=== PATIENT | male | born 1940 | race Hispanic/Latino ===

== ENCOUNTER 2018-08-26 12:13 | Inpatient (IN) | payer MEDICARE, BC ==
[2018-08-26 12:30] VITALS: BMI 25.3
--- NOTE | 2018-08-26 12:41 | C.PDOC ---
History Of Present Illness 78 y/o male sent to the ED by PMD, Dr. Dr. Ryne Wagoner, for evaluation of icterus onset 08/05/18. Patient reports symptoms are painless. States he has been taking PO fluids but not food. He also has been drinking orange juice. Otherwise he denies any difficulty breathing, fever, chills, URI symptoms, weakness, or other associated symptoms. Time Seen by Provider: 08/26/18 12:35 Chief Complaint (Nursing): Abnormal Labs History Per: Patient History/Exam Limitations: no limitations Onset/Duration Of Symptoms: Days Current Symptoms Are (Timing): Still Present Past Medical History Reviewed: Historical Data, Nursing Documentation, Vital Signs Vital Signs: Last Vital Signs Temp 98.5 F 08/26/18 12:31 Pulse 90 08/26/18 12:31 Resp 17 08/26/18 12:31 BP 133/76 08/26/18 12:31 Pulse Ox 96 08/26/18 12:31 - Medical History PMH: HTN (Borderline HTN, not on meds) Denies: Chronic Kidney Disease Surgical History: Tonsillectomy - [facility] Procedures CLOSED [NEEDLE] BIOPSY OF SALIVARY GLAND OR DUCT (09/18/14) Family History: States: No Known Family Hx Review Of Systems Constitutional: Negative for: Fever, Chills ENT: Negative for: Nose Congestion Cardiovascular: Negative for: Chest Pain Respiratory: Negative for: Cough, Shortness of Breath Gastrointestinal: Negative for: Nausea, Vomiting Skin: Positive for: Other (Icterus) Neurological: Negative for: Weakness, Headache Physical Exam - Physical Exam Appears: Non-toxic, No Acute Distress Skin: Warm, Other (Icterus throughout entire body) Head: Atraumatic, Normacephalic Eye(s): bilateral: PERRL, EOMI, Scleral Icterus Neck: Normal ROM, Supple Chest: Symmetrical Cardiovascular: Rhythm Regular, No Murmur Respiratory: Normal Breath Sounds, No Rales, No Rhonchi, No Wheezing Gastrointestinal/Abdominal: Soft, No Tenderness (with (-) de oliveira's sign, (-) mcburney's point tenderness), No Distention, No Guarding Extremity: Bilateral: Atraumatic, No Pedal Edema, Normal ROM Neurological/Psych: Oriented x3, Normal Speech ED Course And Treatment - Laboratory Results Result Diagrams: 08/26/18 13:02 08/26/18 13:02 Lab Interpretation: Abnormal (LFT's D-Bili 49 H, Total Bili 52 H) ECG: Interpreted By Me ECG Rhythm: Sinus Rhythm ECG Interpretation: Normal Rate From EC O2 Sat by Pulse Oximetry: 96 Pulse Ox Interpretation: Normal - Radiology CXR: Interpreted by Me CXR Interpretation: Yes: No Acute Disease - CT Scan/US US Abdomen Other Rad Studies (CT/US): Read By Radiologist, Radiology Report Reviewed CT/US Interpretation: IMPRESSION: Dilated common bile duct and intrahepatic ducts. Distended gallbladder containing sludge. No evidence of gallbladder wall thickening/pericholecystic edema. Negative sonographic De Oliveira's sign as assessed by the animal behaviorist. Correlate clinically. Echogenic liver may be seen in setting of hepatic parenchymal disease or fatty infiltration. Splenomegaly. CT Chest/Abd/Pelvis Other Rad Studies (CT/US): Read By Radiologist, Radiology Report Reviewed CT/US Interpretation: IMPRESSION: 1. No acute findings on thoracic CT without contrast. Mild hiatal hernia is identified. No significant lymphadenopathy or definitive pulmonary mass identified. 2. Gross dilatation of the biliary tree is appreciated possibly sparing the distal common bile duct. Lack of intravenous contrast limits evaluation of the solid abdominal viscera. The gallbladder appears rather distended without radiodense cholelithiasis however. No radiodense choledocholithiasis or definitive pancreatic mass appreciated. Ampullary lesion is not excluded or possible common bile duct lesion. Follow-up MRI abdomen with and without contrast is advised as well as MRCP. 3. No significant abdominal lymphadenopathy. 4. Diffuse colonic diverticulosis without definite diverticulitis. 5. Enlarged prostate gland. Reevaluation Time: 15:38 Reassessment Condition: Improved - Physician Consult Information Outcome Of Conversation: 0000, 1500: dw Dr. Ryne Wagoner, PMD< ok to admit. Dr. Lofton aware for GI consult Medical Decision Making Medical Decision Makin weeks of worstening icterus, no symptomology of CA consider sludge/blocked biliary duct. consider ERCP as inpt Initial Plan: --EKG --Labs --Chest x-ray --IV fluids --Abdominal US --CT Chest/Abd/Pelvis Disposition Doctor Will See Patient In The: Hospital Counseled Patient/Family Regarding: Studies Performed, Diagnosis - Disposition Disposition: HOSPITALIZED Disposition Time: 15:40 Condition: FAIR - Clinical Impression Clinical Impression: Icterus, Elevated bilirubin - Scribe Statement The provider has reviewed the documentation as recorded by the Scribe (Janice Waters) Provider Attestation: All medical record entries made by the Scribe were at my direction and personally dictated by me. I have reviewed the chart and agree that the record accurately reflects my personal performance of the history, physical exam, medical decision making, and the department course for this patient. I have also personally directed, reviewed, and agree with the discharge instructions and disposition.
[2018-08-26] MEDS ORDERED: Sodium Chloride 0.9% 1,000 ML IV ONE ×2 (12:53→14:39)
[2018-08-26 13:08] LABS: HEMOGLOBIN 14.5 g/dL (12.0-18.0); WHITE BLOOD COUNT 14.5 K/uL (4.8-10.8)
[2018-08-26 13:14] LABS: MEAN CELL VOLUME 84.4 fL (80.0-94.0); MEAN CORPUSCULAR HEMOGLOBIN 28.8 pg (27.0-31.0); MEAN CORPUSCULAR HGB CONC 34.1 g/dL (33.0-37.0); RBC 5.03 Mil/uL (4.40-5.90); RED CELL DISTRIBUTION WIDTH 18.8 % (11.5-14.5)
[2018-08-26 13:40] LABS: PROTHROMBIN TIME 49.7 SECONDS (9.7-12.2)
[2018-08-26 13:49] LABS: INR 4.5
--- NOTE | 2018-08-26 14:00 | RAD ---
Date of service: 08/26/2018 PROCEDURE: CHEST RADIOGRAPH, 1 VIEW HISTORY: abd pain COMPARISON: None available. FINDINGS: LUNGS: Clear. PLEURA: No pneumothorax or pleural fluid seen. CARDIOVASCULAR: No radiographic findings to suggest acute or significant cardiovascular disease. No atherosclerotic calcifications identified. OSSEOUS STRUCTURES: No significant abnormalities. VISUALIZED UPPER ABDOMEN: Normal. OTHER FINDINGS: None. IMPRESSION: No active disease. Concordant results with the preliminary interpretation rendered by the emergency department physician procedure.
[2018-08-26 14:16] LABS: LYMPH # 2.3 K/uL (1.0-4.3); MONO # 0.4 K/uL (0.0-0.8)
[2018-08-26 14:37] LABS: ALB/GLOB RATIO 0.8 (1.0-2.1); ALBUMIN 3.4 g/dL (3.5-5.0); BILIRUBIN,DIRECT 49.2 mg/dL (0.0-0.4); CALCIUM 9.2 mg/dl (8.6-10.4); TROPONIN I 0.013 ng/mL (0.00-0.120)
--- NOTE | 2018-08-26 14:53 | US ---
HISTORY: icterus, ? GB/liver COMPARISON: None available. TECHNIQUE: Sonographic evaluation of the abdomen. FINDINGS: LIVER: Measures 16.5 cm in sagittal dimension. Echogenic liver may be seen in setting of hepatic parenchymal disease or fatty infiltration. No focal hepatic mass identified. The main portal vein appears patent with normal directional flow. Intrahepatic ductal dilatation. GALLBLADDER: Gallbladder sludge. No gallstones. No gallbladder wall thickening. Negative sonographic De Oliveira's sign as assessed by the coal sample tester. COMMON BILE DUCT: Measures 1.5 cm. PANCREAS: Not well visualized. RIGHT KIDNEY: Measures 12.6 x 6.1 x 4.8 cm. No obstructing calculus or hydronephrosis identified. LEFT KIDNEY: Measures 13.3 x 6.0 x 6.0 cm. No obstructing calculus or hydronephrosis identified. SPLEEN: Measures approximately 13.5 cm. AORTA: Limited views appear unremarkable. IVC: Limited views appear unremarkable. OTHER FINDINGS: None. IMPRESSION: Dilated common bile duct and intrahepatic ducts. Distended gallbladder containing sludge. No evidence of gallbladder wall thickening/pericholecystic edema. Negative sonographic De Oliveira's sign as assessed by the coal sample tester. Correlate clinically. Echogenic liver may be seen in setting of hepatic parenchymal disease or fatty infiltration. Splenomegaly.
[2018-08-26 14:58] LABS: SQUAMOUS EPITHIAL 1 /hpf (0-5); URINE BACTERIA RARE (<OCC); URINE BILIRUBIN 2+ (NEGATIVE); URINE BLOOD 2+ (NEGATIVE); URINE CLARITY Hazy (Clear); URINE COLOR Amber (YELLOW); URINE GLUCOSE (UA) NORMAL (Normal); URINE LEUKOCYTE ESTERASE NEG Leu/uL (Negative); URINE PROTEIN NEGATIVE (NEGATIVE)
--- NOTE | 2018-08-26 15:00 | CT ---
Date of service: 08/26/2018 PROCEDURE: CT Chest, Abdomen and Pelvis without intravenous contrast HISTORY: painless icterus, suspect mass/mets COMPARISON: None available. TECHNIQUE: Helical CT of the chest, abdomen and pelvis was performed without oral or intravenous contrast as requested. Reformatted data sets also been provided. Radiation dose: Total exam DLP = 644.2 mGy-cm. This CT exam was performed using one or more of the following dose reduction techniques: Automated exposure control, adjustment of the mA and/or kV according to patient size, and/or use of iterative reconstruction technique. FINDINGS: CT CHEST WITHOUT CONTRAST: LUNGS: Central airways appear clear. No parenchymal nodule, mass or consolidation. MEDIASTINUM: The thoracic inlet appears unremarkable. Normal caliber aorta and pulmonary arterial trunk. Limited calcific atherosclerosis is appreciated at the aortic arch. Coronary artery atherosclerosis also identified. Normal size heart. LYMPH NODES: Shotty paratracheal and aortopulmonary window lymph nodes are identified. No significant lymphadenopathy nevertheless. PLEURA: Unremarkable. No pneumothorax. No pleural fluid. BONES: Extensive multifocal thoracic spondylosis. OTHER FINDINGS: Small hiatal hernia identified. There also 1.9 cm subcutaneous intermediate density nodular focus probably reflecting a sebaceous cyst at the left chest wall inferolaterally. CT ABDOMEN AND PELVIS: LIVER: There is extensive intrahepatic bile duct dilatation including a the common hepatic duct which measures 2.2 cm at its greatest dilatation and dilatation of the common bile duct up to 2.2 cm at its proximal extent. Mid CBD measures 15 mm with distal CBD likely normal caliber, but difficult to identify given lack of intravenous contrast. Otherwise homogeneous density seen throughout the liver without definable mass appreciable. GALLBLADDER AND BILE DUCTS: Gallbladder is prominently distended with intermediate density luminal contents suspicious for sludge though no calcifications identified to specifically identify calculi. CBD described above. No mural thickening or pericholecystic fluid collection grossly evident. PANCREAS: Pancreas appears atrophic but nonfocal. SPLEEN: Unremarkable. ADRENALS: Unremarkable. No mass. KIDNEYS AND URETERS: Unremarkable. No hydronephrosis. No solid mass. VASCULATURE: Minimal calcified atherosclerotic plaques identified in various abdominal aortic segments. Normal caliber abdominal aorta. No aortic aneurysm. BOWEL: Stomach is collapsed. The bowel does not appear obstructed. There is extensive diffuse colonic diverticulosis without definitive diverticulitis identified at this time. Limited scattered retained fecal material seen in various large-bowel segments. APPENDIX: Normal appendix. PERITONEUM: Unremarkable. No free fluid. No free air. LYMPH NODES: Unremarkable. No enlarged lymph nodes. BLADDER: Urinary bladder is limited in distension and is poorly evaluated as result. REPRODUCTIVE: Enlarged prostate gland. BONES: No acute fracture. OTHER FINDINGS: None. IMPRESSION: 1. No acute findings on thoracic CT without contrast. Mild hiatal hernia is identified. No significant lymphadenopathy or definitive pulmonary mass identified. 2. Gross dilatation of the biliary tree is appreciated possibly sparing the distal common bile duct. Lack of intravenous contrast limits evaluation of the solid abdominal viscera. The gallbladder appears rather distended without radiodense cholelithiasis however. No radiodense choledocholithiasis or definitive pancreatic mass appreciated. Ampullary lesion is not excluded or possible common bile duct lesion. Follow-up MRI abdomen with and without contrast is advised as well as MRCP. 3. No significant abdominal lymphadenopathy. 4. Diffuse colonic diverticulosis without definite diverticulitis. 5. Enlarged prostate gland.
[2018-08-26] MEDS: Sodium Chloride 0.9% 1,000 ML IV SCH ×2 (15:55→21:34)
--- NOTE | 2018-08-26 16:56 | CP.PCM.CON ---
<Gautam Benitez - Last Filed: 08/26/18 17:36> History of Present Illness - History of Present Illness History of Present Illness: CCU Consult note. HPI: 78M no PMH presents with a 3 week history of light colored stools and a one week history of progressive jaundice. Pt reports dark urines. He denies trying any remedies or OTC meds to try to change his stools or jaundice. Pt went to His PMD Dr Wagoner who sent him to [facility]. Patient has been tolerating a normal diet at home and drinks fluids. He reports no changes in urinary frequency. Denies any associated abdominal pain or flank pain. He does not take any medications at home. Pt rarely follows up with his PMD. 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 - RENAL Hx Chronic Kidney Disease: No - ENDOCRINE/METABOLIC Hx Endocrine Disorders: No - HEMATOLOGICAL/ONCOLOGICAL Hx Blood Disorders: No - INTEGUMENTARY Hx Dermatological Problems: Yes Hx Basil Cell: Yes (Nose) Other/Comment: Left parotid nodule - MUSCULOSKELETAL/RHEUMATOLOGICAL Hx Musculoskeletal Disorders: No - GASTROINTESTINAL Hx Gastrointestinal Disorders: Yes Hx Hemorrhoids: Yes - GENITOURINARY/GYNECOLOGICAL Hx Genitourinary Disorders: No - PSYCHIATRIC Hx Psychophysiologic Disorder: No Hx Substance Use: No - SURGICAL HISTORY Hx Tonsillectomy: Yes - ANESTHESIA Hx Anesthesia: Yes Hx Anesthesia Reactions: No Hx Malignant Hyperthermia: No Meds Allergies/Adverse Reactions: Allergies Allergy/AdvReac Type Severity Reaction Status Date / Time No Known Allergies Allergy Verified 08/26/18 12:30 - Medications Medications: Current Medications Sodium Chloride (Sodium Chloride 0.9%) 1,000 mls @ 100 mls/hr IV .Q10H ANASTASIA Last Admin: 08/26/18 15:55 Dose: 100 mls/hr Phytonadione (Vitamin K Inj) 10 mg SC Q8 ANASTASIA Stop: 08/27/18 14:01 Physical Exam - Constitutional Appears: No Acute Distress Results - Vital Signs Recent Vital Signs: Last Vital Signs Temp 98.5 F 08/26/18 12:31 Pulse 78 08/26/18 16:06 Resp 16 08/26/18 16:06 BP 146/82 08/26/18 16:06 Pulse Ox 96 08/26/18 16:17 - Labs Result Diagrams: 08/26/18 13:02 08/26/18 13:02 Labs: Laboratory Results - last 24 hr 08/26/18 08/26/18 08/26/18 13:02 13:02 13:02 WBC 14.5 H RBC 5.03 Hgb 14.5 Hct 42.5 MCV 84.4 MCH 28.8 MCHC 34.1 RDW 18.8 H Plt Count 436 H MPV 9.0 Neut % (Auto) 81.0 H Lymph % (Auto) 16.0 L [place] % (Auto) 3.0 Eos % (Auto) 0.0 Baso % (Auto) 0.0 Neut # (Auto) 12.0 H Lymph # (Auto) 2.3 [place] # (Auto) 0.4 Eos # (Auto) 0.0 Baso # (Auto) 0.0 PT 49.7 H INR 4.5 APTT 54 H Sodium 139 Potassium 3.6 Chloride 104 Carbon Dioxide 13 L Anion Gap 25 H BUN 113 H* Creatinine 5.8 H Est GFR ( Amer) 12 Est GFR (Non-Af Amer) 10 Random Glucose 131 H Lactic Acid Calcium 9.2 Total Bilirubin 52.3 H Direct Bilirubin 49.2 H AST 298 H ALT 366 H Alkaline Phosphatase 525 H Ammonia Troponin I 0.0130 NT-Pro-B Natriuret Pep 767 Total Protein 7.4 Albumin 3.4 L Globulin 4.0 H Albumin/Globulin Ratio 0.8 L Lipase 668 H Urine Color Urine Clarity Urine pH Ur Specific [place] Urine Protein Urine Glucose (UA) Urine Ketones Urine Blood Urine Nitrate Urine Bilirubin Urine Urobilinogen Ur Leukocyte Esterase Urine WBC (Auto) Urine RBC (Auto) Ur Squamous Epith Cells Urine Bacteria Ur Random Sodium 08/26/18 08/26/18 08/26/18 13:02 14:47 16:16 WBC RBC Hgb Hct MCV MCH MCHC RDW Plt Count MPV Neut % (Auto) Lymph % (Auto) [place] % (Auto) Eos % (Auto) Baso % (Auto) Neut # (Auto) Lymph # (Auto) [place] # (Auto) Eos # (Auto) Baso # (Auto) PT INR APTT Sodium Potassium Chloride Carbon Dioxide Anion Gap BUN Creatinine Est GFR ( Amer) Est GFR (Non-Af Amer) Random Glucose Lactic Acid 1.0 Calcium Total Bilirubin Direct Bilirubin AST ALT Alkaline Phosphatase Ammonia Troponin I NT-Pro-B Natriuret Pep Total Protein Albumin Globulin Albumin/Globulin Ratio Lipase Urine Color [place] Urine Clarity Hazy Urine pH 5.0 Ur Specific [place] 1.011 Urine Protein Negative Urine Glucose (UA) Normal Urine Ketones Negative Urine Blood 2+ H Urine Nitrate Negative Urine Bilirubin 2+ H Urine Urobilinogen 2.0 Ur Leukocyte Esterase Neg Urine WBC (Auto) 2 Urine RBC (Auto) 9 H Ur Squamous Epith Cells 1 Urine Bacteria Rare Ur Random Sodium 27 08/26/18 16:19 WBC RBC Hgb Hct MCV MCH MCHC RDW Plt Count MPV Neut % (Auto) Lymph % (Auto) [place] % (Auto) Eos % (Auto) Baso % (Auto) Neut # (Auto) Lymph # (Auto) [place] # (Auto) Eos # (Auto) Baso # (Auto) PT INR APTT Sodium Potassium Chloride Carbon Dioxide Anion Gap BUN Creatinine Est GFR ( Amer) Est GFR (Non-Af Amer) Random Glucose Lactic Acid Calcium Total Bilirubin Direct Bilirubin AST ALT Alkaline Phosphatase Ammonia 27 Troponin I NT-Pro-B Natriuret Pep Total Protein Albumin Globulin Albumin/Globulin Ratio Lipase Urine Color Urine Clarity Urine pH Ur Specific [place] Urine Protein Urine Glucose (UA) Urine Ketones Urine Blood Urine Nitrate Urine Bilirubin Urine Urobilinogen Ur Leukocyte Esterase Urine WBC (Auto) Urine RBC (Auto) Ur Squamous Epith Cells Urine Bacteria Ur Random Sodium Assessment & Plan - Assessment and Plan (Free Text) Assessment: Neuro: -AAOX3 -Monitor mental status CardioVasc: Hemodynamically stable Monitor Vitals Pulm: Maintian spO2 >92% Nasal Canula prn ID: no leukocytosis afebrile Endo: Maintain Euglycemia target 120-140 random gluc Renal: ALPHONSO -BUN 100 -Cr: 5.8 Monitor and repleat electrolytes monitor i&os GI Billiary obstruction -IVF - -Elevated Direct and Indirect Bilirubin -Elevated ALk Phos -Ultrasound: -MRI Abd: PPX: <SelwynfRichard M - Last Filed: 08/26/18 17:55> Meds - Medications Medications: Current Medications Sodium Chloride (Sodium Chloride 0.9%) 1,000 mls @ 100 mls/hr IV .Q10H ANASTASIA Last Admin: 08/26/18 15:55 Dose: 100 mls/hr Phytonadione (Vitamin K Inj) 10 mg SC Q8 ANASTASIA Stop: 08/27/18 14:01 Results - Vital Signs Recent Vital Signs: Last Vital Signs Temp 98.5 F 08/26/18 12:31 Pulse 78 08/26/18 16:06 Resp 16 08/26/18 16:06 BP 146/82 08/26/18 16:06 Pulse Ox 96 08/26/18 16:17 - Labs Result Diagrams: 08/26/18 13:02 08/26/18 13:02 Labs: Laboratory Results - last 24 hr 08/26/18 08/26/18 08/26/18 13:02 13:02 13:02 WBC 14.5 H RBC 5.03 Hgb 14.5 Hct 42.5 MCV 84.4 MCH 28.8 MCHC 34.1 RDW 18.8 H Plt Count 436 H MPV 9.0 Neut % (Auto) 81.0 H Lymph % (Auto) 16.0 L [place] % (Auto) 3.0 Eos % (Auto) 0.0 Baso % (Auto) 0.0 Neut # (Auto) 12.0 H Lymph # (Auto) 2.3 [place] # (Auto) 0.4 Eos # (Auto) 0.0 Baso # (Auto) 0.0 PT 49.7 H INR 4.5 APTT 54 H Sodium 139 Potassium 3.6 Chloride 104 Carbon Dioxide 13 L Anion Gap 25 H BUN 113 H* Creatinine 5.8 H Est GFR ( Amer) 12 Est GFR (Non-Af Amer) 10 Random Glucose 131 H Lactic Acid Calcium 9.2 Total Bilirubin 52.3 H Direct Bilirubin 49.2 H AST 298 H ALT 366 H Alkaline Phosphatase 525 H Ammonia Troponin I 0.0130 NT-Pro-B Natriuret Pep 767 Total Protein 7.4 Albumin 3.4 L Globulin 4.0 H Albumin/Globulin Ratio 0.8 L Lipase 668 H Carcinoembryonic Ag CA 19-9 Antigen Urine Color Urine Clarity Urine pH Ur Specific [place] Urine Protein Urine Glucose (UA) Urine Ketones Urine Blood Urine Nitrate Urine Bilirubin Urine Urobilinogen Ur Leukocyte Esterase Urine WBC (Auto) Urine RBC (Auto) Ur Squamous Epith Cells Urine Bacteria Ur Random Sodium 08/26/18 08/26/18 08/26/18 13:02 14:47 16:16 WBC RBC Hgb Hct MCV MCH MCHC RDW Plt Count MPV Neut % (Auto) Lymph % (Auto) [place] % (Auto) Eos % (Auto) Baso % (Auto) Neut # (Auto) Lymph # (Auto) [place] # (Auto) Eos # (Auto) Baso # (Auto) PT INR APTT Sodium Potassium Chloride Carbon Dioxide Anion Gap BUN Creatinine Est GFR ( Amer) Est GFR (Non-Af Amer) Random Glucose Lactic Acid 1.0 Calcium Total Bilirubin Direct Bilirubin AST ALT Alkaline Phosphatase Ammonia Troponin I NT-Pro-B Natriuret Pep Total Protein Albumin Globulin Albumin/Globulin Ratio Lipase Carcinoembryonic Ag CA 19-9 Antigen Urine Color [place] Urine Clarity Hazy Urine pH 5.0 Ur Specific [place] 1.011 Urine Protein Negative Urine Glucose (UA) Normal Urine Ketones Negative Urine Blood 2+ H Urine Nitrate Negative Urine Bilirubin 2+ H Urine Urobilinogen 2.0 Ur Leukocyte Esterase Neg Urine WBC (Auto) 2 Urine RBC (Auto) 9 H Ur Squamous Epith Cells 1 Urine Bacteria Rare Ur Random Sodium 27 08/26/18 08/26/18 16:19 16:19 WBC RBC Hgb Hct MCV MCH MCHC RDW Plt Count MPV Neut % (Auto) Lymph % (Auto) [place] % (Auto) Eos % (Auto) Baso % (Auto) Neut # (Auto) Lymph # (Auto) [place] # (Auto) Eos # (Auto) Baso # (Auto) PT INR APTT Sodium Potassium Chloride Carbon Dioxide Anion Gap BUN Creatinine Est GFR ( Amer) Est GFR (Non-Af Amer) Random Glucose Lactic Acid Calcium Total Bilirubin Direct Bilirubin AST ALT Alkaline Phosphatase Ammonia 27 Troponin I NT-Pro-B Natriuret Pep Total Protein Albumin Globulin Albumin/Globulin Ratio Lipase Carcinoembryonic Ag 1.2 CA 19-9 Antigen 243 H Urine Color Urine Clarity Urine pH Ur Specific [place] Urine Protein Urine Glucose (UA) Urine Ketones Urine Blood Urine Nitrate Urine Bilirubin Urine Urobilinogen Ur Leukocyte Esterase Urine WBC (Auto) Urine RBC (Auto) Ur Squamous Epith Cells Urine Bacteria Ur Random Sodium Attending/Attestation - Attestation I have personally seen and examined this patient.: Yes I have fully participated in the care of the patient.: Yes I have reviewed all pertinent clinical information: Yes Notes (Text): 08/26/18 17:51 Today: August The Patient was seen and examined at the bedside, Medical records reviewed, and management issues were discussed and formulated with the house staff. I have reviewed all the relevant clinical, laboratory, hemodynamic, radiographic data and medications Events reviewed Pain issues, skin care, head of the bed elevation, glycemic control were addressed. Agree with above resident's assessment and treatment plans of care as transcribed in Dr. Benitez's note.
[2018-08-26] MEDS ORDERED: Pneumococcal 23-Valent Vaccine SC ONE (19:31)
[2018-08-26] MEDS: Phytonadione 10 mg/ml Inj (Adult) SC SCH (21:41)
[2018-08-27] MEDS: Phytonadione 10 mg/ml Inj (Adult) SC SCH ×2 (05:15→14:02)
[2018-08-27] MEDS: Sodium Chloride 0.9% 1,000 ML IV SCH ×3 (05:16→12:11)
[2018-08-27 06:53] LABS: HEMOGLOBIN 12.1 g/dL (12.0-18.0); MEAN CELL VOLUME 85.2 fL (80.0-94.0); MEAN CORPUSCULAR HEMOGLOBIN 29.8 pg (27.0-31.0); MEAN PLATELET VOLUME 9.2 fL (7.2-11.7); PLATELET COUNT 350 K/uL (130-400); RBC 4.08 Mil/uL (4.40-5.90); RED CELL DISTRIBUTION WIDTH 18.7 % (11.5-14.5); WHITE BLOOD COUNT 13.3 K/uL (4.8-10.8)
[2018-08-27 06:56] LABS: PROTHROMBIN TIME 33.1 SECONDS (9.7-12.2)
[2018-08-27 07:24] LABS: ALB/GLOB RATIO 0.8 (1.0-2.1); ALBUMIN 2.8 g/dL (3.5-5.0); CALCIUM 8.1 mg/dl (8.6-10.4)
[2018-08-27 07:48] LABS: HEPATITIS B SURFACE AG Negative (NEGATIVE)
[2018-08-27 07:58] LABS: HEPATITIS C ANTIBODY NEGATIVE (NEGATIVE)
--- NOTE | 2018-08-27 08:12 | CP.PCM.CON ---
History of Present Illness - History of Present Illness History of Present Illness: This is a 78 year old man admitted with jaundice. Patient states that he he noted yellow eyes, dark urine and light-colored stools approximately one month ago. He denies having abdominal pain. He has lost approximately 25 pounds during that time. He also reports that the stools are small in volume and frequent, up to six or eight times daily. He denies having nausea, vomiting, heartburn and difficulty swallowing. He consulted his PCP, Dr. Wagoner, who checked blood work, found a markedly elevated bilirubin, and referred the patient to the ER. Repeat blood work showed a TBILI 52.3, DBILI 49.2, AST 298, ALT 366, ALKP 525, lipsse 668, PT 49.7, BUN 113, Cr 5.8. 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 Review of Systems - Review of Systems All systems: reviewed and no additional remarkable complaints except - Constitutional Constitutional: absent: Chills, Fever, Weakness - Cardiovascular Cardiovascular: absent: Chest Pain - Respiratory Respiratory: absent: Cough, Dyspnea - Gastrointestinal Gastrointestinal: Change in Stool Character. absent: Abdominal Pain, Constipation, Dysphagia, Heartburn, Hematochezia, Nausea, Vomiting - Genitourinary Genitourinary: absent: Flank Pain, Urinary Frequency - Neurological Neurological: absent: Headaches Past Patient History - Past Medical History & Family History Past Medical History?: Yes - Past Social History Smoking Status: Former Smoker - CARDIAC Hx Hypertension: Yes (Borderline HTN, not on meds) - PULMONARY Hx Respiratory Disorders: No - NEUROLOGICAL Hx Neurological Disorder: No - HEENT Hx HEENT Problems: Yes Other/Comment: 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 - RENAL Hx Chronic Kidney Disease: No - ENDOCRINE/METABOLIC Hx Endocrine Disorders: No - HEMATOLOGICAL/ONCOLOGICAL Hx Blood Disorders: No - INTEGUMENTARY Hx Dermatological Problems: Yes Hx Basil Cell: Yes (Nose) Other/Comment: Left parotid nodule - MUSCULOSKELETAL/RHEUMATOLOGICAL Hx Musculoskeletal Disorders: No - GASTROINTESTINAL Hx Gastrointestinal Disorders: Yes Hx Hemorrhoids: Yes - GENITOURINARY/GYNECOLOGICAL Hx Genitourinary Disorders: No - PSYCHIATRIC Hx Psychophysiologic Disorder: No Hx Substance Use: No - SURGICAL HISTORY Hx Tonsillectomy: Yes - ANESTHESIA Hx Anesthesia: Yes Hx Anesthesia Reactions: No Hx Malignant Hyperthermia: No Has any member of the family had a problem w/ anesthesia?: No Meds Allergies/Adverse Reactions: Allergies Allergy/AdvReac Type Severity Reaction Status Date / Time No Known Allergies Allergy Verified 08/26/18 12:30 - Medications Medications: Current Medications Famotidine (Pepcid) 20 mg IVP DAILY [facility] Heparin Sodium (Porcine) (Heparin) 5,000 units SC Q8 [facility] Sodium Chloride (Sodium Chloride 0.9%) 1,000 mls @ 100 mls/hr IV .Q10H [facility] Last Admin: 08/27/18 05:16 Dose: 100 mls/hr Influenza Virus Vaccine (Fluzone Quad [id number]) 60 mcg IM .ONCE ONE Stop: 08/29/18 10:01 Phytonadione (Vitamin K Inj) 10 mg SC Q8 [facility] Stop: 08/27/18 14:01 Last Admin: 08/27/18 05:15 Dose: 10 mg Pneumococcal Polyvalent Vaccine (Pneumovax 23 Vaccine) 0.5 ml SC .ONCE ONE Stop: 08/29/18 10:01 Physical Exam - Constitutional Appears: No Acute Distress - Head Exam Head Exam: ATRAUMATIC, NORMOCEPHALIC - Eye Exam Eye Exam: Scleral icterus - Neck Exam Neck exam: Negative for: Lymphadenopathy, Thyromegaly - Respiratory Exam Respiratory Exam: NORMAL BREATHING PATTERN. absent: Rales, Rhonchi, Wheezes - Cardiovascular Exam Cardiovascular Exam: REGULAR RHYTHM, +S1, +S2. absent: Gallop, Rubs, Systolic Murmur - GI/Abdominal Exam GI & Abdominal Exam: Normal Bowel Sounds, Soft. absent: Mass, Organomegaly, Tenderness - Rectal Exam Rectal Exam: Deferred - Extremities Exam Extremities exam: Negative for: calf tenderness, pedal edema Results - Vital Signs Recent Vital Signs: Last Vital Signs Temp 98.5 F 08/27/18 04:00 Pulse 72 08/27/18 07:00 Resp 16 08/27/18 07:00 BP 146/80 08/27/18 06:56 Pulse Ox 100 08/27/18 07:00 - Labs Result Diagrams: 08/27/18 06:46 08/27/18 06:46 Labs: Laboratory Results - last 24 hr 08/26/18 08/26/18 08/26/18 13:02 13:02 13:02 WBC 14.5 H RBC 5.03 Hgb 14.5 Hct 42.5 MCV 84.4 MCH 28.8 MCHC 34.1 RDW 18.8 H Plt Count 436 H MPV 9.0 Neut % (Auto) 81.0 H Lymph % (Auto) 16.0 L [place] % (Auto) 3.0 Eos % (Auto) 0.0 Baso % (Auto) 0.0 Neut # (Auto) 12.0 H Lymph # (Auto) 2.3 [place] # (Auto) 0.4 Eos # (Auto) 0.0 Baso # (Auto) 0.0 PT 49.7 H INR 4.5 APTT 54 H Sodium 139 Potassium 3.6 Chloride 104 Carbon Dioxide 13 L Anion Gap 25 H BUN 113 H* Creatinine 5.8 H Est GFR ( Amer) 12 Est GFR (Non-Af Amer) 10 Random Glucose 131 H Lactic Acid Calcium 9.2 Phosphorus Magnesium Total Bilirubin 52.3 H Direct Bilirubin 49.2 H AST 298 H ALT 366 H Alkaline Phosphatase 525 H Ammonia Troponin I 0.0130 NT-Pro-B Natriuret Pep 767 Total Protein 7.4 Albumin 3.4 L Globulin 4.0 H Albumin/Globulin Ratio 0.8 L Triglycerides Cholesterol LDL Cholesterol Direct HDL Cholesterol Lipase 668 H Carcinoembryonic Ag CA 19-9 Antigen Urine Color Urine Clarity Urine pH Ur Specific [place] Urine Protein Urine Glucose (UA) Urine Ketones Urine Blood Urine Nitrate Urine Bilirubin Urine Urobilinogen Ur Leukocyte Esterase Urine WBC (Auto) Urine RBC (Auto) Ur Squamous Epith Cells Urine Bacteria Ur Random Sodium Hep Bs Antigen Hepatitis C Antibody 08/26/18 08/26/18 08/26/18 13:02 14:47 16:16 WBC RBC Hgb Hct MCV MCH MCHC RDW Plt Count MPV Neut % (Auto) Lymph % (Auto) [place] % (Auto) Eos % (Auto) Baso % (Auto) Neut # (Auto) Lymph # (Auto) [place] # (Auto) Eos # (Auto) Baso # (Auto) PT INR APTT Sodium Potassium Chloride Carbon Dioxide Anion Gap BUN Creatinine Est GFR ( Amer) Est GFR (Non-Af Amer) Random Glucose Lactic Acid 1.0 Calcium Phosphorus Magnesium Total Bilirubin Direct Bilirubin AST ALT Alkaline Phosphatase Ammonia Troponin I NT-Pro-B Natriuret Pep Total Protein Albumin Globulin Albumin/Globulin Ratio Triglycerides Cholesterol LDL Cholesterol Direct HDL Cholesterol Lipase Carcinoembryonic Ag CA 19-9 Antigen Urine Color [place] Urine Clarity Hazy Urine pH 5.0 Ur Specific [place] 1.011 Urine Protein Negative Urine Glucose (UA) Normal Urine Ketones Negative Urine Blood 2+ H Urine Nitrate Negative Urine Bilirubin 2+ H Urine Urobilinogen 2.0 Ur Leukocyte Esterase Neg Urine WBC (Auto) 2 Urine RBC (Auto) 9 H Ur Squamous Epith Cells 1 Urine Bacteria Rare Ur Random Sodium 27 Hep Bs Antigen Hepatitis C Antibody 08/26/18 08/26/18 08/27/18 16:19 16:19 06:46 WBC RBC Hgb Hct MCV MCH MCHC RDW Plt Count MPV Neut % (Auto) Lymph % (Auto) [place] % (Auto) Eos % (Auto) Baso % (Auto) Neut # (Auto) Lymph # (Auto) [place] # (Auto) Eos # (Auto) Baso # (Auto) PT 33.1 H D INR 3.0 D APTT Sodium Potassium Chloride Carbon Dioxide Anion Gap BUN Creatinine Est GFR ( Amer) Est GFR (Non-Af Amer) Random Glucose Lactic Acid Calcium Phosphorus Magnesium Total Bilirubin Direct Bilirubin AST ALT Alkaline Phosphatase Ammonia 27 Troponin I NT-Pro-B Natriuret Pep Total Protein Albumin Globulin Albumin/Globulin Ratio Triglycerides Cholesterol LDL Cholesterol Direct HDL Cholesterol Lipase Carcinoembryonic Ag 1.2 CA 19-9 Antigen 243 H Urine Color Urine Clarity Urine pH Ur Specific [place] Urine Protein Urine Glucose (UA) Urine Ketones Urine Blood Urine Nitrate Urine Bilirubin Urine Urobilinogen Ur Leukocyte Esterase Urine WBC (Auto) Urine RBC (Auto) Ur Squamous Epith Cells Urine Bacteria Ur Random Sodium Hep Bs Antigen Hepatitis C Antibody 08/27/18 08/27/18 08/27/18 06:46 06:46 06:46 WBC 13.3 H RBC 4.08 L Hgb 12.1 D Hct 34.7 L MCV 85.2 MCH 29.8 MCHC 35.0 RDW 18.7 H Plt Count 350 MPV 9.2 Neut % (Auto) Lymph % (Auto) [place] % (Auto) Eos % (Auto) Baso % (Auto) Neut # (Auto) Lymph # (Auto) [place] # (Auto) Eos # (Auto) Baso # (Auto) PT INR APTT Sodium 141 Potassium 3.8 Chloride 113 H Carbon Dioxide 12 L Anion Gap 20 BUN 120 H* Creatinine 5.4 H Est GFR ( Amer) 13 Est GFR (Non-Af Amer) 10 Random Glucose 103 Lactic Acid Calcium 8.1 L Phosphorus 6.0 H Magnesium 2.8 H Total Bilirubin 56.3 H Direct Bilirubin AST 258 H ALT 327 H Alkaline Phosphatase 443 H Ammonia Troponin I NT-Pro-B Natriuret Pep Total Protein 6.1 L Albumin 2.8 L Globulin 3.4 Albumin/Globulin Ratio 0.8 L Triglycerides 241 H Cholesterol 212 H LDL Cholesterol Direct 139 H HDL Cholesterol 34 Lipase Carcinoembryonic Ag CA 19-9 Antigen Urine Color Urine Clarity Urine pH Ur Specific [place] Urine Protein Urine Glucose (UA) Urine Ketones Urine Blood Urine Nitrate Urine Bilirubin Urine Urobilinogen Ur Leukocyte Esterase Urine WBC (Auto) Urine RBC (Auto) Ur Squamous Epith Cells Urine Bacteria Ur Random Sodium Hep Bs Antigen Hepatitis C Antibody 08/27/18 06:46 WBC RBC Hgb Hct MCV MCH MCHC RDW Plt Count MPV Neut % (Auto) Lymph % (Auto) [place] % (Auto) Eos % (Auto) Baso % (Auto) Neut # (Auto) Lymph # (Auto) [place] # (Auto) Eos # (Auto) Baso # (Auto) PT INR APTT Sodium Potassium Chloride Carbon Dioxide Anion Gap BUN Creatinine Est GFR ( Amer) Est GFR (Non-Af Amer) Random Glucose Lactic Acid Calcium Phosphorus Magnesium Total Bilirubin Direct Bilirubin AST ALT Alkaline Phosphatase Ammonia Troponin I NT-Pro-B Natriuret Pep Total Protein Albumin Globulin Albumin/Globulin Ratio Triglycerides Cholesterol LDL Cholesterol Direct HDL Cholesterol Lipase Carcinoembryonic Ag CA 19-9 Antigen Urine Color Urine Clarity Urine pH Ur Specific [place] Urine Protein Urine Glucose (UA) Urine Ketones Urine Blood Urine Nitrate Urine Bilirubin Urine Urobilinogen Ur Leukocyte Esterase Urine WBC (Auto) Urine RBC (Auto) Ur Squamous Epith Cells Urine Bacteria Ur Random Sodium Hep Bs Antigen Negative Hepatitis C Antibody Negative Assessment & Plan (1) Obstructive jaundice Assessment and Plan: Patient developed jaundice several weeks ago and presented with marked hyperbillirubinemia and acute kidney injury. The degree of elevation of direct bilirubin may be related to kidney failure. There is also evidence of coagulopathy and elevation of the lipase. The elevated lipase level which may be due to renal failure. 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 Patient will need ERCP when stable; in the absence of signs of cholangitis, an emergent ERCP is not indicated. Will discuss transfer to [facility] with Dr. Wagoner. Status: Acute
[2018-08-27 08:17] LABS: HEPATITIS A IGM NEGATIVE (NEGATIVE)
[2018-08-27 09:06] LABS: LYMPH # 1.1 K/uL (1.0-4.3); MONO # 1.5 K/uL (0.0-0.8)
[2018-08-27 09:08] LABS: LYMPHOCYTE 8 % (20-40); MONOCYTE 11 % (0-10); NEUTROPHIL 81 % (50-75); PLATELET ESTIMATE NORMAL (NORMAL); TOTAL CELLS COUNTED 100
--- NOTE | 2018-08-27 10:37 | HP ---
Presently in the emergency room. CHIEF COMPLAINT: Jaundice as well as overall weakness. HISTORY OF PRESENT ILLNESS: Mr. Garcia is a very well-known 78-year-old male whose sister called me on Thursday because he was not doing well at home, he was not feeling well, and family was urging him to contact me. I speak with Mr. Garcia on regular basis all the time, calling him, and he calls me to discuss multiple issues, especially talking about politics etc. 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 We spoke at great length, and he did not mention anything to me. When I spoke with the sister on Thursday that she had called me, I urged Mr. Garcia and his sister to come to the office the following day, Thursday morning, even though we don't have office hours, I just came to see him, and at that time, he looked deeply icteric and weak. After a long discussion, I asked him that perhaps it would be the best way to do this in the hospital, but he declined. He is very afraid of anything to do with medicine, physicians as well as hospital care. The story began some time around 08/05/2018. 07/29/2016 was his [birth year], and he went to his niece's house for family reunion, and apparently when I spoke with everybody now in the last few days, he was totally well and they had a very good gathering. A week later on 08/05/2018, he began feeling weak, tired, was unable to do things that he did by himself, unable to cook, and he began noticing that his urine began to turn "darkish." Concomitantly, within the next few days, he began noticing that the stool was kind of light in color. 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 As I mentioned, I spoke with him on 08/15/2018 on Thursday night, and he did not mention anything to me at that point. Yesterday, when I saw him again, he was deeply icteric. I urged him that we should be doing some of these tests and he should be hospitalized, he declined. He wanted to have some of the imaging, testing etc to see what was the problem as an outpatient. After some conversation and some "bargaining" here in the office, we decided that we are going to take some blood for testing, and depending upon the test result, we would decide he could certainly have some imaging as an outpatient or he would be hospitalized. I spoke with the sister, I spoke with the family, and they all agreed. I spoke with him last night again just to be sure that he did not want to come to the hospital. This morning, I got the result of the blood test which was extremely abnormal with highly elevated bilirubin about 60 and elevated liver enzymes, elevated INR 3.5 or so, all related to significant biliary tree obstruction. I called the sister, Hortensia Kearney, and I spoke with Mr. Garcia and I urged him to come to the hospital, we had no way, we could not deal with this as an outpatient. They finally agreed. Yesterday, after he came to the office, I went to the hospital, I spoke with radiologist [facility], actually I spoke personally with Dr. Caro about this situation and how we could proceed expeditiously with ultrasound, CAT scan as well as MRCP, and we were trying to arrange these for this morning, but right now on my insistence, he is in the emergency room. I went personally earlier to the emergency room. I spoke with Dr. Jordan. I brought the papers and the blood test from the office to make them aware of the situation. He was extremely kind to take control of these issues. Concomitantly, I put a call to Dr. Vides for GI evaluation and he graciously agreed to see the patient expeditiously. PAST MEDICAL HISTORY: Except for some emotional and situational hypertension, he has been totally fine. He takes no medications. The last time that he came here to the office was 2-1/2 years ago when his blood pressure was elevated for several weeks where he was undergoing some dental procedures, and then after that, blood pressure came back to normal and he has been medication free ever since. He does not smoke and drinks very little, just occasionally on holidays etc. ALLERGIES: HE CLAIMS TO HAVE NO ALLERGIES WHATSOEVER. REVIEW OF SYSTEMS: Severe weakness over the last few days and totally jaundiced, dark urine, light-colored stools. He denies any abdominal pain. No fever, no nausea, no vomiting. He has totally zero desire to eat. He has only been drinking especially orange juice, the only thing that he likes, that it tastes well to him is orange juice, and recently he has been drinking good amounts. From the cardiopulmonary view point, he denies any chest pain, shortness of breath, etc. Rest of the review of system otherwise negative. PHYSICAL EXAMINATION: GENERAL: Alert, oriented. Actually, he has been walking in the house, going to the bathroom, trying to cook whatever little things of food, and he came walking on his own power yesterday, in no cardiopulmonary distress whatsoever. VITAL SIGNS: Blood pressure in the office was about 135/70 to 80 yesterday, pulse regular about 80 per minute, and he was clinically afebrile. HEENT: Right now, obviously, he is deeply icteric, itching because of the icterus all over the body and that is his main complaint now. There is no lymphadenopathy anywhere. Head, ear, nose, and throat otherwise unremarkable except for this deep icterus. NECK: Supple. Jugular veins are nondistended. LUNGS: Clear. HEART: Heart sounds normal in intensity and regular. ABDOMEN: No evidence of any masses. No gross organomegaly. No localized tenderness. Bowels are hypoactive. CENTRAL NERVOUS SYSTEM: Unremarkable. Locomotor once again, he was walking fine this morning even on his way to the hospital. COMPLEMENTARY DATA: CBC shows some mild borderline elevation in white count. Hemoglobin and hematocrit normal. Comprehensive profile with profound uremia, hopefully, all prerenal secondary to profound dehydration. Creatinine yesterday was about 5.5. Today, it is a little high here in the hospital for different lab tests with normal ranges. INR elevated about 3.5 to 4, elevated liver enzymes obviously, and bilirubin around 55 to 60. All the investigation at this point of time pending. He is going to get CT of the abdomen without contrast, obviously because of the elevated creatinine, and he is going to have abdominal ultrasound. The MRCP has been ordered, but hopefully will be done after these two tests and we will proceed expeditiously. Once again I had a telephone conversation with Dr. Vides earlier today, and he has been graciously enough to take a look at this horrible situation. 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 PLAN: At this point in time, he looks relatively stable. He will go to regular floor. IV fluids. Pending evaluation by Dr. Vides. Ryne Wagoner MD MTDD
[2018-08-27 10:58] LABS: HEPATITIS B CORE AB NEGATIVE (NEGATIVE)
--- NOTE | 2018-08-27 11:32 | MRI ---
Date of service: 08/26/2018 PROCEDURE: Magnetic Resonance Cholangiopancreatography HISTORY: COMPARISON: CT chest, abdomen and pelvis 08/26/2018 TECHNIQUE: Multiplanar, multisequence MR images of the abdomen were obtained, including heavily T2 weighted MRCP images of the biliary system. Rotating maximum intensity projection images of the biliary system were generated. FINDINGS: MRCP: Common bile duct is dilated up to approximately 17 mm diameter. No filling defect is seen. There is rapid cut off of the distal common bile duct at the level of the pancreatic head. There is no filling defect identified. There is extensive associated intrahepatic biliary ductal dilatation. LIVER: Normal size, contour and attenuation. Extensive intrahepatic biliary ductal dilatation. No filling defects identified within the intrahepatic bile ducts. No hepatic mass. GALLBLADDER: Distended. No mural thickening. No pericholecystic fluid. No gallstones identified. SPLEEN: Unremarkable. PANCREAS: No mass. No pancreatic ductal dilatation. ADRENALS: Unremarkable. KIDNEYS: Unremarkable. AORTA: No aneurysm. ASCITES: None. OTHER FINDINGS: None. IMPRESSION: Extensive intra and extrahepatic biliary ductal dilatation. No pancreatic ductal dilatation. Sharp cut off of distal common bile duct at the level of the pancreatic head. Possible biliary stricture or neoplasm. No evidence of choledocholithiasis. No evidence of pancreatic neoplasm. No other significant abnormality.
--- NOTE | 2018-08-27 12:57 | CP.PCM.CON ---
History of Present Illness - History of Present Illness History of Present Illness: Nephrology consult note for Dr Gerard: 78 year old M no PMHx presents with light colored stools, dark urine and progressive jaundice. Patient states that his symptoms first started 3 weeks ago but "he hates coming to the hospital" so he came in yesterday as his symptoms were not getting better. Patient states that he went to his PMD prior to coming to the hospital which recommended he come to the hospital. Patient denies any abdominal pain, nausea or vomiting. Denies any fever, chills, weight loss, sob, cp. Denies any issues with his kidney. Nephrology consulted for elevated BUN and Creatinine. 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 Med: denies All: Denies SH: former smoker, quit 46 years ago and 10 pack years prior, drinking 1 cup wine during dinner, denies any recreational drugs FH: Father with DM Review of Systems - Review of Systems All systems: reviewed and no additional remarkable complaints except (HPI) Past Patient History - Past Medical History & Family History Past Medical History?: Yes - Past Social History Smoking Status: Former Smoker - CARDIAC Hx Hypertension: Yes (Borderline HTN, not on meds) - PULMONARY Hx Respiratory Disorders: No - NEUROLOGICAL Hx Neurological Disorder: No - HEENT Hx HEENT Problems: Yes Other/Comment: 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 - RENAL Hx Chronic Kidney Disease: No - ENDOCRINE/METABOLIC Hx Endocrine Disorders: No - HEMATOLOGICAL/ONCOLOGICAL Hx Blood Disorders: No - INTEGUMENTARY Hx Dermatological Problems: Yes Hx Basil Cell: Yes (Nose) Other/Comment: Left parotid nodule - MUSCULOSKELETAL/RHEUMATOLOGICAL Hx Musculoskeletal Disorders: No - GASTROINTESTINAL Hx Gastrointestinal Disorders: Yes Hx Hemorrhoids: Yes - GENITOURINARY/GYNECOLOGICAL Hx Genitourinary Disorders: No - PSYCHIATRIC Hx Psychophysiologic Disorder: No Hx Substance Use: No - SURGICAL HISTORY Hx Tonsillectomy: Yes - ANESTHESIA Hx Anesthesia: Yes Hx Anesthesia Reactions: No Hx Malignant Hyperthermia: No Has any member of the family had a problem w/ anesthesia?: No Meds Allergies/Adverse Reactions: Allergies Allergy/AdvReac Type Severity Reaction Status Date / Time No Known Allergies Allergy Verified 08/26/18 12:30 - Medications Medications: Current Medications Famotidine (Pepcid) 20 mg IVP DAILY ANASTASIA Last Admin: 08/27/18 12:09 Dose: 20 mg Heparin Sodium (Porcine) (Heparin) 5,000 units SC Q8 [facility] Sodium Chloride (Sodium Chloride 0.9%) 1,000 mls @ 100 mls/hr IV .Q10H [facility] Last Admin: 08/27/18 12:11 Dose: Not Given Influenza Virus Vaccine (Fluzone Quad [id number]) 60 mcg IM .ONCE ONE Stop: 08/29/18 10:01 Phytonadione (Vitamin K Inj) 10 mg SC Q8 [facility] Stop: 08/27/18 14:01 Last Admin: 08/27/18 05:15 Dose: 10 mg Pneumococcal Polyvalent Vaccine (Pneumovax 23 Vaccine) 0.5 ml SC .ONCE ONE Stop: 08/29/18 10:01 Physical Exam - Constitutional Appears: No Acute Distress - Head Exam Head Exam: ATRAUMATIC, NORMOCEPHALIC - Eye Exam Eye Exam: EOMI, Scleral icterus Pupil Exam: PERRL - ENT Exam ENT Exam: Mucous Membranes Moist - Neck Exam Neck exam: Positive for: Full Rom - Respiratory Exam Respiratory Exam: Clear to Auscultation Bilateral. absent: Rales, Wheezes - Cardiovascular Exam Cardiovascular Exam: REGULAR RHYTHM, +S1, +S2 - GI/Abdominal Exam GI & Abdominal Exam: Soft. absent: Distended, Organomegaly, Tenderness - Extremities Exam Extremities exam: Negative for: calf tenderness, tenderness - Neurological Exam Neurological exam: Alert, CN II-XII Intact, Oriented x3 - Psychiatric Exam Psychiatric exam: Normal Mood - Skin Skin Exam: Dry, Intact Results - Vital Signs Recent Vital Signs: Last Vital Signs Temp 98.5 F 08/27/18 04:00 Pulse 71 08/27/18 11:10 Resp 28 H 08/27/18 11:10 BP 160/89 H 08/27/18 11:10 Pulse Ox 100 08/27/18 11:10 - Labs Result Diagrams: 08/27/18 06:46 08/27/18 06:46 Labs: Laboratory Results - last 24 hr 08/26/18 08/26/18 08/26/18 13:02 13:02 13:02 WBC 14.5 H RBC 5.03 Hgb 14.5 Hct 42.5 MCV 84.4 MCH 28.8 MCHC 34.1 RDW 18.8 H Plt Count 436 H MPV 9.0 Neut % (Auto) 81.0 H Lymph % (Auto) 16.0 L Holmes % (Auto) 3.0 Eos % (Auto) 0.0 Baso % (Auto) 0.0 Neut # (Auto) 12.0 H Lymph # (Auto) 2.3 Holmes # (Auto) 0.4 Eos # (Auto) 0.0 Baso # (Auto) 0.0 Neutrophils % (Manual) Lymphocytes % (Manual) Monocytes % (Manual) Platelet Estimate RBC Morphology PT 49.7 H INR 4.5 APTT 54 H Sodium 139 Potassium 3.6 Chloride 104 Carbon Dioxide 13 L Anion Gap 25 H BUN 113 H* Creatinine 5.8 H Est GFR ( Amer) 12 Est GFR (Non-Af Amer) 10 Random Glucose 131 H Lactic Acid Calcium 9.2 Phosphorus Magnesium Total Bilirubin 52.3 H Direct Bilirubin 49.2 H AST 298 H ALT 366 H Alkaline Phosphatase 525 H Ammonia Troponin I 0.0130 NT-Pro-B Natriuret Pep 767 Total Protein 7.4 Albumin 3.4 L Globulin 4.0 H Albumin/Globulin Ratio 0.8 L Triglycerides Cholesterol LDL Cholesterol Direct HDL Cholesterol Lipase 668 H Carcinoembryonic Ag CA 19-9 Antigen Urine Color Urine Clarity Urine pH Ur Specific [place] Urine Protein Urine Glucose (UA) Urine Ketones Urine Blood Urine Nitrate Urine Bilirubin Urine Urobilinogen Ur Leukocyte Esterase Urine WBC (Auto) Urine RBC (Auto) Ur Squamous Epith Cells Urine Bacteria Ur Random Sodium Hepatitis A IgM Ab Hep Bs Antigen Hep B Core IgM Ab Hepatitis C Antibody 08/26/18 08/26/18 08/26/18 13:02 14:47 16:16 WBC RBC Hgb Hct MCV MCH MCHC RDW Plt Count MPV Neut % (Auto) Lymph % (Auto) Holmes % (Auto) Eos % (Auto) Baso % (Auto) Neut # (Auto) Lymph # (Auto) Holmes # (Auto) Eos # (Auto) Baso # (Auto) Neutrophils % (Manual) Lymphocytes % (Manual) Monocytes % (Manual) Platelet Estimate RBC Morphology PT INR APTT Sodium Potassium Chloride Carbon Dioxide Anion Gap BUN Creatinine Est GFR ( Amer) Est GFR (Non-Af Amer) Random Glucose Lactic Acid 1.0 Calcium Phosphorus Magnesium Total Bilirubin Direct Bilirubin AST ALT Alkaline Phosphatase Ammonia Troponin I NT-Pro-B Natriuret Pep Total Protein Albumin Globulin Albumin/Globulin Ratio Triglycerides Cholesterol LDL Cholesterol Direct HDL Cholesterol Lipase Carcinoembryonic Ag CA 19-9 Antigen Urine Color [place] Urine Clarity Hazy Urine pH 5.0 Ur Specific [place] 1.011 Urine Protein Negative Urine Glucose (UA) Normal Urine Ketones Negative Urine Blood 2+ H Urine Nitrate Negative Urine Bilirubin 2+ H Urine Urobilinogen 2.0 Ur Leukocyte Esterase Neg Urine WBC (Auto) 2 Urine RBC (Auto) 9 H Ur Squamous Epith Cells 1 Urine Bacteria Rare Ur Random Sodium 27 Hepatitis A IgM Ab Hep Bs Antigen Hep B Core IgM Ab Hepatitis C Antibody 08/26/18 08/26/18 08/27/18 16:19 16:19 06:46 WBC RBC Hgb Hct MCV MCH MCHC RDW Plt Count MPV Neut % (Auto) Lymph % (Auto) Holmes % (Auto) Eos % (Auto) Baso % (Auto) Neut # (Auto) Lymph # (Auto) Holmes # (Auto) Eos # (Auto) Baso # (Auto) Neutrophils % (Manual) Lymphocytes % (Manual) Monocytes % (Manual) Platelet Estimate RBC Morphology PT 33.1 H D INR 3.0 D APTT Sodium Potassium Chloride Carbon Dioxide Anion Gap BUN Creatinine Est GFR ( Amer) Est GFR (Non-Af Amer) Random Glucose Lactic Acid Calcium Phosphorus Magnesium Total Bilirubin Direct Bilirubin AST ALT Alkaline Phosphatase Ammonia 27 Troponin I NT-Pro-B Natriuret Pep Total Protein Albumin Globulin Albumin/Globulin Ratio Triglycerides Cholesterol LDL Cholesterol Direct HDL Cholesterol Lipase Carcinoembryonic Ag 1.2 CA 19-9 Antigen 243 H Urine Color Urine Clarity Urine pH Ur Specific [place] Urine Protein Urine Glucose (UA) Urine Ketones Urine Blood Urine Nitrate Urine Bilirubin Urine Urobilinogen Ur Leukocyte Esterase Urine WBC (Auto) Urine RBC (Auto) Ur Squamous Epith Cells Urine Bacteria Ur Random Sodium Hepatitis A IgM Ab Hep Bs Antigen Hep B Core IgM Ab Hepatitis C Antibody 08/27/18 08/27/18 08/27/18 06:46 06:46 06:46 WBC 13.3 H RBC 4.08 L Hgb 12.1 D Hct 34.7 L MCV 85.2 MCH 29.8 MCHC 35.0 RDW 18.7 H Plt Count 350 MPV 9.2 Neut % (Auto) 81.0 H Lymph % (Auto) 8.0 L Holmes % (Auto) 11.0 H Eos % (Auto) 0.0 Baso % (Auto) 0.0 Neut # (Auto) 11.0 H Lymph # (Auto) 1.1 Holmes # (Auto) 1.5 H Eos # (Auto) 0.0 Baso # (Auto) 0.0 Neutrophils % (Manual) 81 H Lymphocytes % (Manual) 8 L Monocytes % (Manual) 11 H Platelet Estimate Normal RBC Morphology Normal PT INR APTT Sodium 141 Potassium 3.8 Chloride 113 H Carbon Dioxide 12 L Anion Gap 20 BUN 120 H* Creatinine 5.4 H Est GFR ( Amer) 13 Est GFR (Non-Af Amer) 10 Random Glucose 103 Lactic Acid Calcium 8.1 L Phosphorus 6.0 H Magnesium 2.8 H Total Bilirubin 56.3 H Direct Bilirubin AST 258 H ALT 327 H Alkaline Phosphatase 443 H Ammonia Troponin I NT-Pro-B Natriuret Pep Total Protein 6.1 L Albumin 2.8 L Globulin 3.4 Albumin/Globulin Ratio 0.8 L Triglycerides 241 H Cholesterol 212 H LDL Cholesterol Direct 139 H HDL Cholesterol 34 Lipase Carcinoembryonic Ag CA 19-9 Antigen Urine Color Urine Clarity Urine pH Ur Specific [place] Urine Protein Urine Glucose (UA) Urine Ketones Urine Blood Urine Nitrate Urine Bilirubin Urine Urobilinogen Ur Leukocyte Esterase Urine WBC (Auto) Urine RBC (Auto) Ur Squamous Epith Cells Urine Bacteria Ur Random Sodium Hepatitis A IgM Ab Hep Bs Antigen Hep B Core IgM Ab Hepatitis C Antibody 08/27/18 06:46 WBC RBC Hgb Hct MCV MCH MCHC RDW Plt Count MPV Neut % (Auto) Lymph % (Auto) Holmes % (Auto) Eos % (Auto) Baso % (Auto) Neut # (Auto) Lymph # (Auto) Holmes # (Auto) Eos # (Auto) Baso # (Auto) Neutrophils % (Manual) Lymphocytes % (Manual) Monocytes % (Manual) Platelet Estimate RBC Morphology PT INR APTT Sodium Potassium Chloride Carbon Dioxide Anion Gap BUN Creatinine Est GFR ( Amer) Est GFR (Non-Af Amer) Random Glucose Lactic Acid Calcium Phosphorus Magnesium Total Bilirubin Direct Bilirubin AST ALT Alkaline Phosphatase Ammonia Troponin I NT-Pro-B Natriuret Pep Total Protein Albumin Globulin Albumin/Globulin Ratio Triglycerides Cholesterol LDL Cholesterol Direct HDL Cholesterol Lipase Carcinoembryonic Ag CA 19-9 Antigen Urine Color Urine Clarity Urine pH Ur Specific [place] Urine Protein Urine Glucose (UA) Urine Ketones Urine Blood Urine Nitrate Urine Bilirubin Urine Urobilinogen Ur Leukocyte Esterase Urine WBC (Auto) Urine RBC (Auto) Ur Squamous Epith Cells Urine Bacteria Ur Random Sodium Hepatitis A IgM Ab Negative Hep Bs Antigen Negative Hep B Core IgM Ab Negative Hepatitis C Antibody Negative Assessment & Plan - Assessment and Plan (Free Text) Assessment: 78 year old M no significant PMHx presents with light colored stools, dark urine and progressive jaundice. Found to have elevated total and direct bili, transaminitis, coagulopathy and elevated BUN/Cr. Nephrology consulted for ALPHONSO. 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
[2018-08-27] MEDS: Sodium Bicarbonate 8.4% 75 MEQ in Sodium Chloride 0.45% 925 ML IV SCH (14:02)
[2018-08-27] MEDS: Piperacillin/Tazobact 2.25 GM in Sodium Chloride 0.9% 50 ML IV SCH ×2 (15:05→21:31)
--- NOTE | 2018-08-27 15:40 | CP.CCUPN ---
<Boogie Chicas - Last Filed: 08/27/18 16:13> CCU Objective - Vital Signs / Intake & Output Vital Signs (Last 4 hours): Vital Signs Pulse Resp BP Pulse Ox 08/27/18 15:15 74 29 H 160/86 H 100 08/27/18 15:03 89 100 08/27/18 14:00 69 14 100 08/27/18 13:56 75 22 152/83 H 100 08/27/18 13:00 78 25 H 100 08/27/18 12:56 73 24 160/84 H 100 Intake and Output (Last 8hrs): Intake & Output 08/27/18 08/27/18 08/27/18 06:59 14:59 22:59 Intake Total 1140 1160 60 Output Total 500 420 0 Balance 640 740 60 Weight 132 lb Intake: Intake, IV Amount 900 660 60 Left Forearm 900 660 60 Oral 240 500 0 Output: Urine 500 420 0 Urine, Voided 500 420 0 Other: # Bowel Movements 1 0 1 - Medications Active Medications: Active Medications Generic Name Dose Route Start Last Admin Trade Name Freq PRN Reason Stop Dose Admin Famotidine 20 mg 08/27/18 10:00 08/27/18 12:09 Pepcid IVP 20 mg DAILY ANASTASIA Administration Sodium Bicarbonate 75 meq/ 1,000 mls @ 60 mls/hr 08/27/18 13:15 08/27/18 14:02 Sodium Chloride IV 60 mls/hr .[id number] ANASTASIA Administration Piperacillin Sod/Tazobactam 50 mls @ 100 mls/hr 08/27/18 14:15 08/27/18 15:05 Sod 2.25 gm/ Sodium Chloride IV 100 mls/hr Q6H ANASTASIA Administration Protocol Influenza Virus Vaccine 60 mcg 08/29/18 10:00 Fluzone Quad [id number] IM 08/29/18 10:01 .ONCE ONE Pneumococcal Polyvalent Vaccine 0.5 ml 08/29/18 10:00 Pneumovax 23 Vaccine SC 08/29/18 10:01 .ONCE ONE - Patient Studies Lab Studies: Lab Studies 08/27/18 08/27/18 08/27/18 Range/Units 06:46 06:46 06:46 WBC 13.3 H (4.8-10.8) K/uL RBC 4.08 L (4.40-5.90) Mil/uL Hgb 12.1 D (12.0-18.0) g/dL Hct 34.7 L (35.0-51.0) % MCV 85.2 (80.0-94.0) fL MCH 29.8 (27.0-31.0) pg MCHC 35.0 (33.0-37.0) g/dL RDW 18.7 H (11.5-14.5) % Plt Count 350 (130-400) K/uL MPV 9.2 (7.2-11.7) fL Neut % (Auto) 81.0 H (50.0-75.0) % Lymph % (Auto) 8.0 L (20.0-40.0) % [place] % (Auto) 11.0 H (0.0-10.0) % Eos % (Auto) 0.0 (0.0-4.0) % Baso % (Auto) 0.0 (0.0-2.0) % Neut # (Auto) 11.0 H (1.8-7.0) K/uL Lymph # (Auto) 1.1 (1.0-4.3) K/uL [place] # (Auto) 1.5 H (0.0-0.8) K/uL Eos # (Auto) 0.0 (0.0-0.7) K/uL Baso # (Auto) 0.0 (0.0-0.2) K/uL Neutrophils % (Manual) 81 H (50-75) % Lymphocytes % (Manual) 8 L (20-40) % Monocytes % (Manual) 11 H (0-10) % Platelet Estimate Normal (NORMAL) RBC Morphology Normal PT (9.7-12.2) SECONDS INR Sodium (132-148) mmol/L Potassium (3.6-5.2) mmol/L Chloride (98-107) mmol/L Carbon Dioxide (22-30) mmol/L Anion Gap (10-20) BUN (9-20) mg/dL Creatinine (0.8-1.5) mg/dL Est GFR ( Amer) Est GFR (Non-Af Amer) Random Glucose (75-110) mg/dL Calcium (8.6-10.4) mg/dl Phosphorus 6.0 H (2.5-4.5) mg/dL Magnesium 2.8 H (1.6-2.3) mg/dL Total Bilirubin (0.2-1.3) mg/dL AST (17-59) U/L ALT (21-72) U/L Alkaline Phosphatase (38-126) U/L Ammonia (9-33) umol/L Total Protein (6.3-8.3) g/dL Albumin (3.5-5.0) g/dL Globulin (2.2-3.9) gm/dL Albumin/Globulin Ratio (1.0-2.1) Triglycerides 241 H (0-149) mg/dL Cholesterol 212 H (0-199) mg/dL LDL Cholesterol Direct 139 H (0-129) mg/dL HDL Cholesterol 34 (30-70) mg/dL Carcinoembryonic Ag (0-3.0) ng/mL CA 19-9 Antigen (0-37) U/mL Ur Random Sodium mmol/L Hepatitis A IgM Ab Negative (NEGATIVE) Hep Bs Antigen Negative (NEGATIVE) Hep B Core IgM Ab Negative (NEGATIVE) Hepatitis C Antibody Negative (NEGATIVE) 08/27/18 08/27/18 08/26/18 Range/Units 06:46 06:46 16:19 WBC (4.8-10.8) K/uL RBC (4.40-5.90) Mil/uL Hgb (12.0-18.0) g/dL Hct (35.0-51.0) % MCV (80.0-94.0) fL MCH (27.0-31.0) pg MCHC (33.0-37.0) g/dL RDW (11.5-14.5) % Plt Count (130-400) K/uL MPV (7.2-11.7) fL Neut % (Auto) (50.0-75.0) % Lymph % (Auto) (20.0-40.0) % [place] % (Auto) (0.0-10.0) % Eos % (Auto) (0.0-4.0) % Baso % (Auto) (0.0-2.0) % Neut # (Auto) (1.8-7.0) K/uL Lymph # (Auto) (1.0-4.3) K/uL [place] # (Auto) (0.0-0.8) K/uL Eos # (Auto) (0.0-0.7) K/uL Baso # (Auto) (0.0-0.2) K/uL Neutrophils % (Manual) (50-75) % Lymphocytes % (Manual) (20-40) % Monocytes % (Manual) (0-10) % Platelet Estimate (NORMAL) RBC Morphology PT 33.1 H D (9.7-12.2) SECONDS INR 3.0 D Sodium 141 (132-148) mmol/L Potassium 3.8 (3.6-5.2) mmol/L Chloride 113 H (98-107) mmol/L Carbon Dioxide 12 L (22-30) mmol/L Anion Gap 20 (10-20) BUN 120 H* (9-20) mg/dL Creatinine 5.4 H (0.8-1.5) mg/dL Est GFR ( Amer) 13 Est GFR (Non-Af Amer) 10 Random Glucose 103 (75-110) mg/dL Calcium 8.1 L (8.6-10.4) mg/dl Phosphorus (2.5-4.5) mg/dL Magnesium (1.6-2.3) mg/dL Total Bilirubin 56.3 H (0.2-1.3) mg/dL AST 258 H (17-59) U/L ALT 327 H (21-72) U/L Alkaline Phosphatase 443 H (38-126) U/L Ammonia (9-33) umol/L Total Protein 6.1 L (6.3-8.3) g/dL Albumin 2.8 L (3.5-5.0) g/dL Globulin 3.4 (2.2-3.9) gm/dL Albumin/Globulin Ratio 0.8 L (1.0-2.1) Triglycerides (0-149) mg/dL Cholesterol (0-199) mg/dL LDL Cholesterol Direct (0-129) mg/dL HDL Cholesterol (30-70) mg/dL Carcinoembryonic Ag 1.2 (0-3.0) ng/mL CA 19-9 Antigen 243 H (0-37) U/mL Ur Random Sodium mmol/L Hepatitis A IgM Ab (NEGATIVE) Hep Bs Antigen (NEGATIVE) Hep B Core IgM Ab (NEGATIVE) Hepatitis C Antibody (NEGATIVE) 08/26/18 08/26/18 Range/Units 16:19 16:16 WBC (4.8-10.8) K/uL RBC (4.40-5.90) Mil/uL Hgb (12.0-18.0) g/dL Hct (35.0-51.0) % MCV (80.0-94.0) fL MCH (27.0-31.0) pg MCHC (33.0-37.0) g/dL RDW (11.5-14.5) % Plt Count (130-400) K/uL MPV (7.2-11.7) fL Neut % (Auto) (50.0-75.0) % Lymph % (Auto) (20.0-40.0) % [place] % (Auto) (0.0-10.0) % Eos % (Auto) (0.0-4.0) % Baso % (Auto) (0.0-2.0) % Neut # (Auto) (1.8-7.0) K/uL Lymph # (Auto) (1.0-4.3) K/uL [place] # (Auto) (0.0-0.8) K/uL Eos # (Auto) (0.0-0.7) K/uL Baso # (Auto) (0.0-0.2) K/uL Neutrophils % (Manual) (50-75) % Lymphocytes % (Manual) (20-40) % Monocytes % (Manual) (0-10) % Platelet Estimate (NORMAL) RBC Morphology PT (9.7-12.2) SECONDS INR Sodium (132-148) mmol/L Potassium (3.6-5.2) mmol/L Chloride (98-107) mmol/L Carbon Dioxide (22-30) mmol/L Anion Gap (10-20) BUN (9-20) mg/dL Creatinine (0.8-1.5) mg/dL Est GFR ( Amer) Est GFR (Non-Af Amer) Random Glucose (75-110) mg/dL Calcium (8.6-10.4) mg/dl Phosphorus (2.5-4.5) mg/dL Magnesium (1.6-2.3) mg/dL Total Bilirubin (0.2-1.3) mg/dL AST (17-59) U/L ALT (21-72) U/L Alkaline Phosphatase (38-126) U/L Ammonia 27 (9-33) umol/L Total Protein (6.3-8.3) g/dL Albumin (3.5-5.0) g/dL Globulin (2.2-3.9) gm/dL Albumin/Globulin Ratio (1.0-2.1) Triglycerides (0-149) mg/dL Cholesterol (0-199) mg/dL LDL Cholesterol Direct (0-129) mg/dL HDL Cholesterol (30-70) mg/dL Carcinoembryonic Ag (0-3.0) ng/mL CA 19-9 Antigen (0-37) U/mL Ur Random Sodium 27 mmol/L Hepatitis A IgM Ab (NEGATIVE) Hep Bs Antigen (NEGATIVE) Hep B Core IgM Ab (NEGATIVE) Hepatitis C Antibody (NEGATIVE) Laboratory Results - last 24 hr 08/26/18 08/26/18 08/26/18 16:16 16:19 16:19 WBC RBC Hgb Hct MCV MCH MCHC RDW Plt Count MPV Neut % (Auto) Lymph % (Auto) [place] % (Auto) Eos % (Auto) Baso % (Auto) Neut # (Auto) Lymph # (Auto) [place] # (Auto) Eos # (Auto) Baso # (Auto) Neutrophils % (Manual) Lymphocytes % (Manual) Monocytes % (Manual) Platelet Estimate RBC Morphology PT INR Sodium Potassium Chloride Carbon Dioxide Anion Gap BUN Creatinine Est GFR ( Amer) Est GFR (Non-Af Amer) Random Glucose Calcium Phosphorus Magnesium Total Bilirubin AST ALT Alkaline Phosphatase Ammonia 27 Total Protein Albumin Globulin Albumin/Globulin Ratio Triglycerides Cholesterol LDL Cholesterol Direct HDL Cholesterol Carcinoembryonic Ag 1.2 CA 19-9 Antigen 243 H Ur Random Sodium 27 Hepatitis A IgM Ab Hep Bs Antigen Hep B Core IgM Ab Hepatitis C Antibody 08/27/18 08/27/18 08/27/18 06:46 06:46 06:46 WBC 13.3 H RBC 4.08 L Hgb 12.1 D Hct 34.7 L MCV 85.2 MCH 29.8 MCHC 35.0 RDW 18.7 H Plt Count 350 MPV 9.2 Neut % (Auto) 81.0 H Lymph % (Auto) 8.0 L [place] % (Auto) 11.0 H Eos % (Auto) 0.0 Baso % (Auto) 0.0 Neut # (Auto) 11.0 H Lymph # (Auto) 1.1 [place] # (Auto) 1.5 H Eos # (Auto) 0.0 Baso # (Auto) 0.0 Neutrophils % (Manual) 81 H Lymphocytes % (Manual) 8 L Monocytes % (Manual) 11 H Platelet Estimate Normal RBC Morphology Normal PT 33.1 H D INR 3.0 D Sodium 141 Potassium 3.8 Chloride 113 H Carbon Dioxide 12 L Anion Gap 20 BUN 120 H* Creatinine 5.4 H Est GFR ( Amer) 13 Est GFR (Non-Af Amer) 10 Random Glucose 103 Calcium 8.1 L Phosphorus Magnesium Total Bilirubin 56.3 H AST 258 H ALT 327 H Alkaline Phosphatase 443 H Ammonia Total Protein 6.1 L Albumin 2.8 L Globulin 3.4 Albumin/Globulin Ratio 0.8 L Triglycerides Cholesterol LDL Cholesterol Direct HDL Cholesterol Carcinoembryonic Ag CA 19-9 Antigen Ur Random Sodium Hepatitis A IgM Ab Hep Bs Antigen Hep B Core IgM Ab Hepatitis C Antibody 08/27/18 08/27/18 06:46 06:46 WBC RBC Hgb Hct MCV MCH MCHC RDW Plt Count MPV Neut % (Auto) Lymph % (Auto) [place] % (Auto) Eos % (Auto) Baso % (Auto) Neut # (Auto) Lymph # (Auto) [place] # (Auto) Eos # (Auto) Baso # (Auto) Neutrophils % (Manual) Lymphocytes % (Manual) Monocytes % (Manual) Platelet Estimate RBC Morphology PT INR Sodium Potassium Chloride Carbon Dioxide Anion Gap BUN Creatinine Est GFR ( Amer) Est GFR (Non-Af Amer) Random Glucose Calcium Phosphorus 6.0 H Magnesium 2.8 H Total Bilirubin AST ALT Alkaline Phosphatase Ammonia Total Protein Albumin Globulin Albumin/Globulin Ratio Triglycerides 241 H Cholesterol 212 H LDL Cholesterol Direct 139 H HDL Cholesterol 34 Carcinoembryonic Ag CA 19-9 Antigen Ur Random Sodium Hepatitis A IgM Ab Negative Hep Bs Antigen Negative Hep B Core IgM Ab Negative Hepatitis C Antibody Negative Critical Care Progress Note - Nutrition Nutrition: Nutrition Category Date Time Status Liquid Diet [DIET] Diets 08/26/18 Lunch Active Attending/Attestation - Attestation I have personally seen and examined this patient.: Yes I have fully participated in the care of the patient.: Yes I have reviewed all pertinent clinical information: Yes Notes (Text): 08/27/18 16:14 I have seen and examined the patient. Medical records, lab studies, and imaging were reviewed by me and a management plan was formulated on multidisciplinary rounds with resident Dr. Benitez. I agree with their documented assessment and plan. 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 We are arranging a transfer for [facility] for intervention using endoscopic ultrasound guided biliary stent placement via ERCP, which is not available at this institution. Critical Care Time 35 minutes. Multi-disciplinary rounds were performed with house staff, nursing, speech therapy, respiratory therapy, pharmacy and nutrition with integrated input from the primary team/attending and other consulting services. The documented time is cumulative and includes review of patient data/exams/labs/chart review and examination of the patient on rounds and throughout the day; time is exclusive of any procedures or teaching time. 08/27/18 16:14 <Gautam Benitez - Last Filed: 08/27/18 17:44> CCU Subjective - Physician Review Subjective (Free Text): 08/27/18 15:45 Pt seen and examined at bedside. Pt to be transfered to [facility] for ERCP under endoscopic Ultrasoiund guidance. Pt is aware of MRCP results showing obstruction of biliary tree. denies any actue evernts overnight. denies cp nv fc flank pain CCU Objective - Vital Signs / Intake & Output Vital Signs (Last 4 hours): Vital Signs Pulse Resp BP Pulse Ox 08/27/18 14:00 69 14 100 08/27/18 13:56 75 22 152/83 H 100 08/27/18 13:00 78 25 H 100 08/27/18 12:56 73 24 160/84 H 100 08/27/18 12:00 76 20 99 08/27/18 11:56 74 20 145/78 100 Intake and Output (Last 8hrs): Intake & Output 08/27/18 08/27/18 08/27/18 06:59 14:59 22:59 Intake Total 1140 1160 Output Total 500 420 Balance 640 740 Weight 132 lb Intake: Intake, IV Amount 900 660 Left Forearm 900 660 Oral 240 500 Output: Urine 500 420 Urine, Voided 500 420 Other: # Bowel Movements 1 0 - Physical Exam Head: Positive for: Atraumatic, Normocephalic Pupils: Positive for: PERRL Extroacular Muscles: Positive for: EOMI Conjunctiva: Positive for: Icteric Respiratory/Chest: Positive for: Clear to Auscultation Cardiovascular: Positive for: Normal S1, S2 - Medications Active Medications: Active Medications Generic Name Dose Route Start Last Admin Trade Name Freq PRN Reason Stop Dose Admin Famotidine 20 mg 08/27/18 10:00 08/27/18 12:09 Pepcid IVP 20 mg DAILY ANASTASIA Administration Sodium Bicarbonate 75 meq/ 1,000 mls @ 60 mls/hr 08/27/18 13:15 08/27/18 14:02 Sodium Chloride IV 60 mls/hr .[id number] ANASTASIA Administration Piperacillin Sod/Tazobactam 50 mls @ 100 mls/hr 08/27/18 14:15 08/27/18 15:05 Sod 2.25 gm/ Sodium Chloride IV 100 mls/hr Q6H ANASTASIA Administration Protocol Influenza Virus Vaccine 60 mcg 08/29/18 10:00 Fluzone Quad [id number] IM 08/29/18 10:01 .ONCE ONE Pneumococcal Polyvalent Vaccine 0.5 ml 08/29/18 10:00 Pneumovax 23 Vaccine SC 08/29/18 10:01 .ONCE ONE - Patient Studies Lab Studies: Lab Studies 08/27/18 08/27/18 08/27/18 Range/Units 06:46 06:46 06:46 WBC 13.3 H (4.8-10.8) K/uL RBC 4.08 L (4.40-5.90) Mil/uL Hgb 12.1 D (12.0-18.0) g/dL Hct 34.7 L (35.0-51.0) % MCV 85.2 (80.0-94.0) fL MCH 29.8 (27.0-31.0) pg MCHC 35.0 (33.0-37.0) g/dL RDW 18.7 H (11.5-14.5) % Plt Count 350 (130-400) K/uL MPV 9.2 (7.2-11.7) fL Neut % (Auto) 81.0 H (50.0-75.0) % Lymph % (Auto) 8.0 L (20.0-40.0) % [place] % (Auto) 11.0 H (0.0-10.0) % Eos % (Auto) 0.0 (0.0-4.0) % Baso % (Auto) 0.0 (0.0-2.0) % Neut # (Auto) 11.0 H (1.8-7.0) K/uL Lymph # (Auto) 1.1 (1.0-4.3) K/uL [place] # (Auto) 1.5 H (0.0-0.8) K/uL Eos # (Auto) 0.0 (0.0-0.7) K/uL Baso # (Auto) 0.0 (0.0-0.2) K/uL Neutrophils % (Manual) 81 H (50-75) % Lymphocytes % (Manual) 8 L (20-40) % Monocytes % (Manual) 11 H (0-10) % Platelet Estimate Normal (NORMAL) RBC Morphology Normal PT (9.7-12.2) SECONDS INR Sodium (132-148) mmol/L Potassium (3.6-5.2) mmol/L Chloride (98-107) mmol/L Carbon Dioxide (22-30) mmol/L Anion Gap (10-20) BUN (9-20) mg/dL Creatinine (0.8-1.5) mg/dL Est GFR ( Amer) Est GFR (Non-Af Amer) Random Glucose (75-110) mg/dL Calcium (8.6-10.4) mg/dl Phosphorus 6.0 H (2.5-4.5) mg/dL Magnesium 2.8 H (1.6-2.3) mg/dL Total Bilirubin (0.2-1.3) mg/dL AST (17-59) U/L ALT (21-72) U/L Alkaline Phosphatase (38-126) U/L Ammonia (9-33) umol/L Total Protein (6.3-8.3) g/dL Albumin (3.5-5.0) g/dL Globulin (2.2-3.9) gm/dL Albumin/Globulin Ratio (1.0-2.1) Triglycerides 241 H (0-149) mg/dL Cholesterol 212 H (0-199) mg/dL LDL Cholesterol Direct 139 H (0-129) mg/dL HDL Cholesterol 34 (30-70) mg/dL Carcinoembryonic Ag (0-3.0) ng/mL CA 19-9 Antigen (0-37) U/mL Ur Random Sodium mmol/L Hepatitis A IgM Ab Negative (NEGATIVE) Hep Bs Antigen Negative (NEGATIVE) Hep B Core IgM Ab Negative (NEGATIVE) Hepatitis C Antibody Negative (NEGATIVE) 08/27/18 08/27/18 08/26/18 Range/Units 06:46 06:46 16:19 WBC (4.8-10.8) K/uL RBC (4.40-5.90) Mil/uL Hgb (12.0-18.0) g/dL Hct (35.0-51.0) % MCV (80.0-94.0) fL MCH (27.0-31.0) pg MCHC (33.0-37.0) g/dL RDW (11.5-14.5) % Plt Count (130-400) K/uL MPV (7.2-11.7) fL Neut % (Auto) (50.0-75.0) % Lymph % (Auto) (20.0-40.0) % [place] % (Auto) (0.0-10.0) % Eos % (Auto) (0.0-4.0) % Baso % (Auto) (0.0-2.0) % Neut # (Auto) (1.8-7.0) K/uL Lymph # (Auto) (1.0-4.3) K/uL [place] # (Auto) (0.0-0.8) K/uL Eos # (Auto) (0.0-0.7) K/uL Baso # (Auto) (0.0-0.2) K/uL Neutrophils % (Manual) (50-75) % Lymphocytes % (Manual) (20-40) % Monocytes % (Manual) (0-10) % Platelet Estimate (NORMAL) RBC Morphology PT 33.1 H D (9.7-12.2) SECONDS INR 3.0 D Sodium 141 (132-148) mmol/L Potassium 3.8 (3.6-5.2) mmol/L Chloride 113 H (98-107) mmol/L Carbon Dioxide 12 L (22-30) mmol/L Anion Gap 20 (10-20) BUN 120 H* (9-20) mg/dL Creatinine 5.4 H (0.8-1.5) mg/dL Est GFR ( Amer) 13 Est GFR (Non-Af Amer) 10 Random Glucose 103 (75-110) mg/dL Calcium 8.1 L (8.6-10.4) mg/dl Phosphorus (2.5-4.5) mg/dL Magnesium (1.6-2.3) mg/dL Total Bilirubin 56.3 H (0.2-1.3) mg/dL AST 258 H (17-59) U/L ALT 327 H (21-72) U/L Alkaline Phosphatase 443 H (38-126) U/L Ammonia (9-33) umol/L Total Protein 6.1 L (6.3-8.3) g/dL Albumin 2.8 L (3.5-5.0) g/dL Globulin 3.4 (2.2-3.9) gm/dL Albumin/Globulin Ratio 0.8 L (1.0-2.1) Triglycerides (0-149) mg/dL Cholesterol (0-199) mg/dL LDL Cholesterol Direct (0-129) mg/dL HDL Cholesterol (30-70) mg/dL Carcinoembryonic Ag 1.2 (0-3.0) ng/mL CA 19-9 Antigen 243 H (0-37) U/mL Ur Random Sodium mmol/L Hepatitis A IgM Ab (NEGATIVE) Hep Bs Antigen (NEGATIVE) Hep B Core IgM Ab (NEGATIVE) Hepatitis C Antibody (NEGATIVE) 08/26/18 08/26/18 Range/Units 16:19 16:16 WBC (4.8-10.8) K/uL RBC (4.40-5.90) Mil/uL Hgb (12.0-18.0) g/dL Hct (35.0-51.0) % MCV (80.0-94.0) fL MCH (27.0-31.0) pg MCHC (33.0-37.0) g/dL RDW (11.5-14.5) % Plt Count (130-400) K/uL MPV (7.2-11.7) fL Neut % (Auto) (50.0-75.0) % Lymph % (Auto) (20.0-40.0) % [place] % (Auto) (0.0-10.0) % Eos % (Auto) (0.0-4.0) % Baso % (Auto) (0.0-2.0) % Neut # (Auto) (1.8-7.0) K/uL Lymph # (Auto) (1.0-4.3) K/uL [place] # (Auto) (0.0-0.8) K/uL Eos # (Auto) (0.0-0.7) K/uL Baso # (Auto) (0.0-0.2) K/uL Neutrophils % (Manual) (50-75) % Lymphocytes % (Manual) (20-40) % Monocytes % (Manual) (0-10) % Platelet Estimate (NORMAL) RBC Morphology PT (9.7-12.2) SECONDS INR Sodium (132-148) mmol/L Potassium (3.6-5.2) mmol/L Chloride (98-107) mmol/L Carbon Dioxide (22-30) mmol/L Anion Gap (10-20) BUN (9-20) mg/dL Creatinine (0.8-1.5) mg/dL Est GFR ( Amer) Est GFR (Non-Af Amer) Random Glucose (75-110) mg/dL Calcium (8.6-10.4) mg/dl Phosphorus (2.5-4.5) mg/dL Magnesium (1.6-2.3) mg/dL Total Bilirubin (0.2-1.3) mg/dL AST (17-59) U/L ALT (21-72) U/L Alkaline Phosphatase (38-126) U/L Ammonia 27 (9-33) umol/L Total Protein (6.3-8.3) g/dL Albumin (3.5-5.0) g/dL Globulin (2.2-3.9) gm/dL Albumin/Globulin Ratio (1.0-2.1) Triglycerides (0-149) mg/dL Cholesterol (0-199) mg/dL LDL Cholesterol Direct (0-129) mg/dL HDL Cholesterol (30-70) mg/dL Carcinoembryonic Ag (0-3.0) ng/mL CA 19-9 Antigen (0-37) U/mL Ur Random Sodium 27 mmol/L Hepatitis A IgM Ab (NEGATIVE) Hep Bs Antigen (NEGATIVE) Hep B Core IgM Ab (NEGATIVE) Hepatitis C Antibody (NEGATIVE) Laboratory Results - last 24 hr 08/26/18 08/26/18 08/26/18 16:16 16:19 16:19 WBC RBC Hgb Hct MCV MCH MCHC RDW Plt Count MPV Neut % (Auto) Lymph % (Auto) [place] % (Auto) Eos % (Auto) Baso % (Auto) Neut # (Auto) Lymph # (Auto) [place] # (Auto) Eos # (Auto) Baso # (Auto) Neutrophils % (Manual) Lymphocytes % (Manual) Monocytes % (Manual) Platelet Estimate RBC Morphology PT INR Sodium Potassium Chloride Carbon Dioxide Anion Gap BUN Creatinine Est GFR ( Amer) Est GFR (Non-Af Amer) Random Glucose Calcium Phosphorus Magnesium Total Bilirubin AST ALT Alkaline Phosphatase Ammonia 27 Total Protein Albumin Globulin Albumin/Globulin Ratio Triglycerides Cholesterol LDL Cholesterol Direct HDL Cholesterol Carcinoembryonic Ag 1.2 CA 19-9 Antigen 243 H Ur Random Sodium 27 Hepatitis A IgM Ab Hep Bs Antigen Hep B Core IgM Ab Hepatitis C Antibody 08/27/18 08/27/18 08/27/18 06:46 06:46 06:46 WBC 13.3 H RBC 4.08 L Hgb 12.1 D Hct 34.7 L MCV 85.2 MCH 29.8 MCHC 35.0 RDW 18.7 H Plt Count 350 MPV 9.2 Neut % (Auto) 81.0 H Lymph % (Auto) 8.0 L [place] % (Auto) 11.0 H Eos % (Auto) 0.0 Baso % (Auto) 0.0 Neut # (Auto) 11.0 H Lymph # (Auto) 1.1 [place] # (Auto) 1.5 H Eos # (Auto) 0.0 Baso # (Auto) 0.0 Neutrophils % (Manual) 81 H Lymphocytes % (Manual) 8 L Monocytes % (Manual) 11 H Platelet Estimate Normal RBC Morphology Normal PT 33.1 H D INR 3.0 D Sodium 141 Potassium 3.8 Chloride 113 H Carbon Dioxide 12 L Anion Gap 20 BUN 120 H* Creatinine 5.4 H Est GFR ( Amer) 13 Est GFR (Non-Af Amer) 10 Random Glucose 103 Calcium 8.1 L Phosphorus Magnesium Total Bilirubin 56.3 H AST 258 H ALT 327 H Alkaline Phosphatase 443 H Ammonia Total Protein 6.1 L Albumin 2.8 L Globulin 3.4 Albumin/Globulin Ratio 0.8 L Triglycerides Cholesterol LDL Cholesterol Direct HDL Cholesterol Carcinoembryonic Ag CA 19-9 Antigen Ur Random Sodium Hepatitis A IgM Ab Hep Bs Antigen Hep B Core IgM Ab Hepatitis C Antibody 08/27/18 08/27/18 06:46 06:46 WBC RBC Hgb Hct MCV MCH MCHC RDW Plt Count MPV Neut % (Auto) Lymph % (Auto) [place] % (Auto) Eos % (Auto) Baso % (Auto) Neut # (Auto) Lymph # (Auto) [place] # (Auto) Eos # (Auto) Baso # (Auto) Neutrophils % (Manual) Lymphocytes % (Manual) Monocytes % (Manual) Platelet Estimate RBC Morphology PT INR Sodium Potassium Chloride Carbon Dioxide Anion Gap BUN Creatinine Est GFR ( Amer) Est GFR (Non-Af Amer) Random Glucose Calcium Phosphorus 6.0 H Magnesium 2.8 H Total Bilirubin AST ALT Alkaline Phosphatase Ammonia Total Protein Albumin Globulin Albumin/Globulin Ratio Triglycerides 241 H Cholesterol 212 H LDL Cholesterol Direct 139 H HDL Cholesterol 34 Carcinoembryonic Ag CA 19-9 Antigen Ur Random Sodium Hepatitis A IgM Ab Negative Hep Bs Antigen Negative Hep B Core IgM Ab Negative Hepatitis C Antibody Negative Review of Systems - Review of Systems All systems: reviewed and no additional remarkable complaints except (as per HPI) Critical Care Progress Note - Nutrition Nutrition: Nutrition Category Date Time Status Liquid Diet [DIET] Diets 08/26/18 Lunch Active Assessment/Plan - Assessment and Plan (Free Text) Assessment: Assessment: 78yo male with sever jaundice and bilirubinemia and alphonso. transfer to [facility] for ercp w/ us endo Neuro: -AAOX3 -Monitor mental status CardioVasc: Hemodynamically stable Monitor Vitals Pulm: Maintian spO2 >92% Nasal Canula prn ID: no leukocytosis afebrile Endo: Maintain Euglycemia target 120-140 random gluc Renal: ALPHONSO -BUN 100 -Cr: 5.8 Monitor and repleat electrolytes monitor i&os GI Billiary obstruction -IVF -Elevated Direct and Indirect Bilirubin -Elevated ALk Phos -Ultrasound: no stones -MRI Abd: MRCP - possible neoplasm vs obstruction of biliary tree, no pancreatic masses seen d/w Dr Juan Francisco Benitez PGY1
--- NOTE | 2018-08-27 17:42 | CARD ---
APPROVED REPORT Date of service: 08/26/2018 EKG Measurement Heart [id number] CT [id number] <Conclusion> Normal sinus rhythm Left axis deviation Left ventricular hypertrophy with QRS widening Cannot rule out Septal infarct, age undetermined Abnormal ECG
[2018-08-28] MEDS: Piperacillin/Tazobact 2.25 GM in Sodium Chloride 0.9% 50 ML IV SCH ×4 (02:48→20:12)
[2018-08-28] MEDS: Sodium Bicarbonate 8.4% 75 MEQ in Sodium Chloride 0.45% 925 ML IV SCH (05:48)
[2018-08-28 07:07] LABS: HEMOGLOBIN 12.2 g/dL (12.0-18.0)
[2018-08-28 07:29] LABS: MEAN CORPUSCULAR HGB CONC 33.7 g/dL (33.0-37.0); MEAN PLATELET VOLUME 9.4 fL (7.2-11.7); PLATELET COUNT 405 K/uL (130-400); RBC 4.19 Mil/uL (4.40-5.90); RED CELL DISTRIBUTION WIDTH 18.2 % (11.5-14.5); WHITE BLOOD COUNT 17.5 K/uL (4.8-10.8)
[2018-08-28 08:22] LABS: ALB/GLOB RATIO 0.8 (1.0-2.1); ALBUMIN 2.7 g/dL (3.5-5.0); CALCIUM 8.6 mg/dl (8.6-10.4)
[2018-08-28 09:01] LABS: NEUT # 15.1 K/uL (1.8-7.0)
[2018-08-28 09:02] LABS: LYMPH # 1.2 K/uL (1.0-4.3); MONO # 1.2 K/uL (0.0-0.8)
[2018-08-28 09:05] LABS: BANDS 1 % (0-2); LYMPHOCYTE 8 % (20-40); MONOCYTE 8 % (0-10); NEUTROPHIL 83 % (50-75); TOTAL CELLS COUNTED 100
[2018-08-28 09:06] LABS: ANISOCYTOSIS MODERATE; HYPOCHROMIC SLIGHT; PLATELET ESTIMATE NORMAL (NORMAL); POIKILOCYTOSIS SLIGHT; POLYCHROMIC SLIGHT
[2018-08-28 09:07] LABS: SCHISTOCYTES SLIGHT; TOXIC GRANULATION PRESENT
[2018-08-28 09:08] LABS: TARGET CELLS SLIGHT
[2018-08-28 09:09] LABS: LARGE PLATELETS PRESENT
--- NOTE | 2018-08-28 11:15 | CP.PCM.PN ---
Subjective - Date & Time of Evaluation Date of Evaluation: 08/28/18 Time of Evaluation: 11:08 - Subjective Subjective: COVERING DR RODAS No Pain, N/V. Awaiting transfer to [facility]. MRCP shows distal CBD narrowing and gross intra and extra hepatic biliary dilatation. No stone. Pancreatic duct is normal. Objective - Vital Signs/Intake and Output Vital Signs (last 24 hours): Temp Pulse Resp BP Pulse Ox 97.5 F L 87 20 144/78 100 08/28/18 07:00 08/28/18 07:00 08/28/18 07:00 08/28/18 07:00 08/28/18 07:00 Intake and Output: 08/28/18 08/28/18 06:59 18:59 Intake Total 600 Output Total 150 Balance -150 600 - Medications Medications: Current Medications Famotidine (Pepcid) 20 mg IVP DAILY [facility] Last Admin: 08/28/18 10:05 Dose: 20 mg Sodium Bicarbonate 75 meq/ (Sodium Chloride) 1,000 mls @ 60 mls/hr IV .[id number] ANASTASIA Last Admin: 08/28/18 05:48 Dose: 60 mls/hr Piperacillin Sod/Tazobactam (Sod 2.25 gm/ Sodium Chloride) 50 mls @ 100 mls/hr IV Q6H ANASTASIA; Protocol Last Admin: 08/28/18 08:31 Dose: 100 mls/hr Influenza Virus Vaccine (Fluzone Quad [id number]) 60 mcg IM .ONCE ONE Stop: 08/29/18 10:01 Pneumococcal Polyvalent Vaccine (Pneumovax 23 Vaccine) 0.5 ml SC .ONCE ONE Stop: 08/29/18 10:01 - Labs Labs: 08/28/18 06:55 08/28/18 06:55 PT 33.1 SECONDS (9.7-12.2) H D 08/27/18 06:46 INR 3.0 D 08/27/18 06:46 APTT 54 SECONDS (21-34) H 08/26/18 13:02 - Constitutional Appears: No Acute Distress - Eye Exam Eye Exam: Scleral icterus - Respiratory Exam Respiratory Exam: NORMAL BREATHING PATTERN - Cardiovascular Exam Cardiovascular Exam: REGULAR RHYTHM - GI/Abdominal Exam GI & Abdominal Exam: Soft, Normal Bowel Sounds. absent: Tenderness - Extremities Exam Extremities Exam: Normal Inspection Assessment and Plan (1) Bile duct stenosis Assessment & Plan: MRCP shows distal bile duct narrowing at level of pancreatic head. R/O bile duct stricture vs cholangiocarcinoma more likely. Needs ERCP/EUS with biopsy and stenting of CBD. Arrangements being made for transfer to [facility]. Status: Acute (2) Obstructive jaundice Assessment & Plan: as above Status: Acute
[2018-08-28 11:50] LABS: INR 1.3; PROTHROMBIN TIME 14.2 SECONDS (9.7-12.2)
[2018-08-28] MEDS: Potassium Chloride 20 mEq ER Tab PO SCH (13:45)
[2018-08-28] MEDS: Sodium Bicarbonate 8.4% 150 MEQ in Dextrose 5% In Water 1,000 ML IV SCH (14:00)
--- NOTE | 2018-08-28 14:02 | CP.PCM.CON ---
History of Present Illness - History of Present Illness History of Present Illness: Vascular Surgery Consult for Dr. Crane Reason for consult: temporary dialysis catheter 78 M with who denies any PMh presents to [facility] for progressing jaundice. Patient states that 4 weeks ago he developed pale stools. This eventually proressed into loose BMs which became for him hard to control. About 2 weeks ago, patient became jaundice that eventually worsened and finally was convinced by family 2 days ago to come to ED. Patient had MRCP which showed intra and extrahepatic dilation of biliary tree with cut off at distal CBD near head of pancreas (see full report). Patient initially had elevated BUN/Cr and also INR. The BUN/Cr continue to increase whil ethe INR was medially corrected. Patient was scheduled to be transferred to [facility] yesterday but transferred was delayed. He is still pending transfer. [facility] indicated that patient should bed dialyzed before transfer. Vascular surgery was consulted for the dialysis access. Denies fever/chills, chest pain, SOB, palpitations, abdominal pain, nausea/vomiting, constipation, urinary symptoms. PMH: Denies PSH: Basal cell CA of nose excision Meds: Denies FH: non-contributory Social: former smoker - quit 46 years ago, smoked 1-2 packs/day for 10 year. Daily glass of wine. Denies illicit drug use. Retired. 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 - RENAL Hx Chronic Kidney Disease: No - ENDOCRINE/METABOLIC Hx Endocrine Disorders: No - HEMATOLOGICAL/ONCOLOGICAL Hx Blood Disorders: No - INTEGUMENTARY Hx Dermatological Problems: Yes Hx Basil Cell: Yes (Nose) Other/Comment: Left parotid nodule - MUSCULOSKELETAL/RHEUMATOLOGICAL Hx Musculoskeletal Disorders: No - GASTROINTESTINAL Hx Gastrointestinal Disorders: Yes Hx Hemorrhoids: Yes - GENITOURINARY/GYNECOLOGICAL Hx Genitourinary Disorders: No - PSYCHIATRIC Hx Psychophysiologic Disorder: No Hx Substance Use: No - SURGICAL HISTORY Hx Tonsillectomy: Yes - ANESTHESIA Hx Anesthesia: Yes Hx Anesthesia Reactions: No Hx Malignant Hyperthermia: No Has any member of the family had a problem w/ anesthesia?: No Meds Allergies/Adverse Reactions: Allergies Allergy/AdvReac Type Severity Reaction Status Date / Time No Known Allergies Allergy Verified 08/26/18 12:30 - Medications Medications: Current Medications Famotidine (Pepcid) 20 mg IVP DAILY [facility]NASTAS[facility] Last Admin: 08/28/18 10:05 Dose: 20 mg Piperacillin Sod/Tazobactam (Sod 2.25 gm/ Sodium Chloride) 50 mls @ 100 mls/hr IV Q6H ANASTASIA; Protocol Last Admin: 08/28/18 08:31 Dose: 100 mls/hr Sodium Bicarbonate 150 meq/ (Dextrose) 1,150 mls @ 50 mls/hr IV .Q23H ANASTASIA Influenza Virus Vaccine (Fluzone Quad [id number]) 60 mcg IM .ONCE ONE Stop: 08/29/18 10:01 Pneumococcal Polyvalent Vaccine (Pneumovax 23 Vaccine) 0.5 ml SC .ONCE ONE Stop: 08/29/18 10:01 Potassium Chloride (K-Dur 20 Meq Er Tab) 20 meq PO DAILY [facility] Results - Vital Signs Recent Vital Signs: Last Vital Signs Temp 97.5 F L 08/28/18 07:00 Pulse 87 08/28/18 07:00 Resp 20 08/28/18 07:00 BP 144/78 08/28/18 07:00 Pulse Ox 100 08/28/18 07:00 - Labs Result Diagrams: 08/29/18 06:45 08/28/18 06:55 Labs: Laboratory Results - last 24 hr 08/28/18 08/28/18 08/28/18 06:55 06:55 11:11 WBC 17.5 H RBC 4.19 L Hgb 12.2 Hct 36.1 MCV 86.0 MCH 29.0 MCHC 33.7 RDW 18.2 H Plt Count 405 H MPV 9.4 Neut % (Auto) 84.0 H Lymph % (Auto) 8.0 L Tarrant % (Auto) 8.0 Eos % (Auto) 0.0 Baso % (Auto) 0.0 Neut # (Auto) 15.1 H Lymph # (Auto) 1.2 Tarrant # (Auto) 1.2 H Eos # (Auto) 0.0 Baso # (Auto) 0.0 Neutrophils % (Manual) 83 H Band Neutrophils % 1 Lymphocytes % (Manual) 8 L Monocytes % (Manual) 8 Toxic Granulation Present Platelet Estimate Normal Large Platelets Present Polychromasia Slight Hypochromasia (manual) Slight Poikilocytosis (manual Slight Anisocytosis (manual) Moderate Target Cells Slight Schistocytes Slight PT 14.2 H D INR 1.3 D APTT 35 H D Sodium 141 Potassium 3.5 L Chloride 110 H Carbon Dioxide 12 L Anion Gap 22 H BUN 135 H* Creatinine 5.7 H Est GFR ( Amer) 12 Est GFR (Non-Af Amer) 10 Random Glucose 87 Lactic Acid Uric Acid Calcium 8.6 Phosphorus 6.4 H Magnesium 2.8 H Total Bilirubin 55.1 H AST 317 H D ALT 364 H Alkaline Phosphatase 500 H Total Protein 6.3 Albumin 2.7 L Globulin 3.6 Albumin/Globulin Ratio 0.8 L 08/28/18 08/28/18 11:11 11:11 WBC RBC Hgb Hct MCV MCH MCHC RDW Plt Count MPV Neut % (Auto) Lymph % (Auto) Tarrant % (Auto) Eos % (Auto) Baso % (Auto) Neut # (Auto) Lymph # (Auto) Tarrant # (Auto) Eos # (Auto) Baso # (Auto) Neutrophils % (Manual) Band Neutrophils % Lymphocytes % (Manual) Monocytes % (Manual) Toxic Granulation Platelet Estimate Large Platelets Polychromasia Hypochromasia (manual) Poikilocytosis (manual Anisocytosis (manual) Target Cells Schistocytes PT INR APTT Sodium Potassium Chloride Carbon Dioxide Anion Gap BUN Creatinine Est GFR ( Amer) Est GFR (Non-Af Amer) Random Glucose Lactic Acid 1.6 Uric Acid 8.1 Calcium Phosphorus Magnesium Total Bilirubin AST ALT Alkaline Phosphatase Total Protein Albumin Globulin Albumin/Globulin Ratio Assessment & Plan - Assessment and Plan (Free Text) Assessment: 78 M with obstructive jaundice and acute renal failure Plan: -Liquid diet -Patient refusing dialysis and dialysis catheter -Primary plans IV hydration for now -Nephro following -Discussed with Dr. Royce Stewart PGY2
[2018-08-28] MEDS ORDERED: Sodium Chloride 0.9% 500 ML IV ONE (16:14)
[2018-08-28] MEDS ORDERED: Sodium Chloride 0.9% 1,000 ML IV SCH ×2 (17:30→19:45)
--- NOTE | 2018-08-28 19:23 | CP.PCM.PN ---
Subjective - Date & Time of Evaluation Date of Evaluation: 08/28/18 Time of Evaluation: 13:30 - Subjective Subjective: Nephrology progress note: Patient with pmh of sitational hypertension, admitted with biliary obstruction and acute renal failure; currently awaiting transfer to [facility] for ERCP; Not eating much; urinating only small amounts; having frequent pasty stools; no nausea/vomiting; no shortness of breath; Objective - Vital Signs/Intake and Output Vital Signs (last 24 hours): Temp Pulse Resp BP Pulse Ox 97.6 F 70 20 141/71 98 08/28/18 16:45 08/28/18 16:45 08/28/18 16:45 08/28/18 16:45 08/28/18 16:45 Intake and Output: 08/28/18 08/29/18 18:59 06:59 Intake Total 1655 Balance 1655 - Medications Medications: Current Medications Famotidine (Pepcid) 20 mg IVP DAILY [facility] Last Admin: 08/28/18 10:05 Dose: 20 mg Piperacillin Sod/Tazobactam (Sod 2.25 gm/ Sodium Chloride) 50 mls @ 100 mls/hr IV Q6H ANASTASIA; Protocol Last Admin: 08/28/18 14:02 Dose: 100 mls/hr Sodium Bicarbonate 150 meq/ (Dextrose) 1,150 mls @ 50 mls/hr IV .Q23H ANASTASIA Last Admin: 08/28/18 14:00 Dose: 50 mls/hr Sodium Chloride (Sodium Chloride 0.9%) 1,000 mls @ 100 mls/hr IV .Q10H ANASTASIA Last Admin: 08/28/18 17:26 Dose: 100 mls/hr Influenza Virus Vaccine (Fluzone Quad [id number]) 60 mcg IM .ONCE ONE Stop: 08/29/18 10:01 Pneumococcal Polyvalent Vaccine (Pneumovax 23 Vaccine) 0.5 ml SC .ONCE ONE Stop: 08/29/18 10:01 Potassium Chloride (K-Dur 20 Meq Er Tab) 20 meq PO DAILY [facility]ST[facility] Last Admin: 08/28/18 13:45 Dose: 20 meq - Labs Labs: 08/28/18 06:55 08/28/18 06:55 PT 14.2 SECONDS (9.7-12.2) H D 08/28/18 11:11 INR 1.3 D 08/28/18 11:11 APTT 35 SECONDS (21-34) H D 08/28/18 11:11 - Constitutional Appears: No Acute Distress - ENT Exam ENT Exam: Mucous Membranes Moist - Respiratory Exam Respiratory Exam: Clear to Ausculation Bilateral. absent: Respiratory Distress - Cardiovascular Exam Cardiovascular Exam: RRR, +S1, +S2. absent: Gallop, JVD, Murmur - GI/Abdominal Exam GI & Abdominal Exam: Soft. absent: Distended, Tenderness - Exam Exam: absent: Bladder Distension - Extremities Exam Additional comments: minimal lower ext edema; - Neurological Exam Neurological Exam: Alert, Awake - Psychiatric Exam Psychiatric exam: Normal Affect, Normal Mood. absent: Agitated - Skin Skin Exam: Warm. 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); increased anion gap metabolic acidosis from renal failure, not corrected with bicarb drip, no lactic acidosis; BUN and creat increasing; no evidence of volume overload; no a bsolutely urgent indication to initiate HD currently; however, concern that patient is becoming uremic and that metabolic parameters need to be corrected before any procedure can take place as voiced by liver team at [facility]; also, would need multiple sessions of HD to achieve this goal; Discussed at length with primary attending; agree that patient may not have received sufficient amount of intravascular volume repletion since admission and so we should first attempt to correct any pre-renal component before initiating HD; will give volume challenge, if no response within next 24-36 hrs, will initiate HD; -changing bicarb drip to D5W w/ 150 meq sodium bicarb at 50 cc/hr; -giving 500 cc NS bolus followed by 100 cc/hr; -replenishing K and Ca prn; monitor for ensuing hypokalemia and hypocalcemia with bicarb drip; -monitor volume status closely; CXR tomorrow; -dose antibiotics for CrCl < 15 ml/min; agree with zosyn for empiric gram neg coverage; -vasc surgery on board for possible temp HD cath when needed; -avoid nephrotoxic agents; Thank you for this referral, we will continue to follow closely. Status: Acute (2) Metabolic acidosis Status: Acute (3) Obstructive jaundice Status: Acute (4) Hypokalemia Status: Acute
[2018-08-28] MEDS: Sodium Chloride 0.9% 1,000 ML IV SCH (22:15)
[2018-08-28 22:19] LABS: CREATININE, RANDOM URINE 62.7 mg/dL
[2018-08-28 22:25] LABS: SQUAMOUS EPITHIAL < 1 /hpf (0-5); URINE BACTERIA OCC (<OCC); URINE BILIRUBIN 2+ (NEGATIVE); URINE BLOOD 2+ (NEGATIVE); URINE CLARITY Hazy (Clear); URINE COLOR Amber (YELLOW); URINE GLUCOSE (UA) NORMAL (Normal); URINE LEUKOCYTE ESTERASE NEG Leu/uL (Negative); URINE PROTEIN NEGATIVE (NEGATIVE)
[2018-08-29] MEDS: Piperacillin/Tazobact 2.25 GM in Sodium Chloride 0.9% 50 ML IV SCH ×4 (01:39→20:18)
[2018-08-29] MEDS: Sodium Chloride 0.9% 1,000 ML IV SCH ×2 (06:00→18:38)
[2018-08-29] MEDS ORDERED: Sodium Chloride 0.9% 1,000 ML IV SCH (07:00)
[2018-08-29 07:23] LABS: HEMOGLOBIN 10.9 g/dL (12.0-18.0); MEAN CELL VOLUME 84.7 fL (80.0-94.0); MEAN CORPUSCULAR HEMOGLOBIN 29.6 pg (27.0-31.0); MEAN PLATELET VOLUME 8.9 fL (7.2-11.7); RBC 3.68 Mil/uL (4.40-5.90); RED CELL DISTRIBUTION WIDTH 18.4 % (11.5-14.5)
--- NOTE | 2018-08-29 07:54 | CP.PCM.PN ---
Subjective - Date & Time of Evaluation Date of Evaluation: 08/29/18 Time of Evaluation: 07:52 - Subjective Subjective: General Surgery Note for Dr. Crane Patient seen and examined at bedside. No acute event overnight. Patient denies pain. He is refusing dialysis still. Tolerating liquid diet. No other complaints at this time. Objective - Vital Signs/Intake and Output Vital Signs (last 24 hours): Temp Pulse Resp BP Pulse Ox 98.2 F 80 20 157/88 H 97 08/29/18 00:00 08/29/18 07:44 08/29/18 00:00 08/29/18 00:00 08/29/18 00:00 Intake and Output: 08/29/18 08/29/18 06:59 18:59 Intake Total 3425 Balance 3425 - Medications Medications: Current Medications Famotidine (Pepcid) 20 mg IVP DAILY [facility]ST[facility] Last Admin: 08/28/18 10:05 Dose: 20 mg Piperacillin Sod/Tazobactam (Sod 2.25 gm/ Sodium Chloride) 50 mls @ 100 mls/hr IV Q6H ANASTASIA; Protocol Last Admin: 08/29/18 01:39 Dose: 100 mls/hr Sodium Bicarbonate 150 meq/ (Dextrose) 1,150 mls @ 50 mls/hr IV .Q23H ANASTASIA Last Admin: 08/28/18 14:00 Dose: 50 mls/hr Sodium Chloride (Sodium Chloride 0.9%) 1,000 mls @ 100 mls/hr IV .Q10H ANASTASIA Last Admin: 08/29/18 06:35 Dose: 100 mls/hr Influenza Virus Vaccine (Fluzone Quad [id number]) 60 mcg IM .ONCE ONE Stop: 08/29/18 10:01 Pneumococcal Polyvalent Vaccine (Pneumovax 23 Vaccine) 0.5 ml SC .ONCE ONE Stop: 08/29/18 10:01 Potassium Chloride (K-Dur 20 Meq Er Tab) 20 meq PO DAILY [facility]ST[facility] Last Admin: 08/28/18 13:45 Dose: 20 meq - Labs Labs: 08/29/18 06:45 08/28/18 06:55 PT 14.2 SECONDS (9.7-12.2) H D 08/28/18 11:11 INR 1.3 D 08/28/18 11:11 APTT 35 SECONDS (21-34) H D 08/28/18 11:11 - Constitutional Appears: No Acute Distress - Eye Exam Eye Exam: Scleral icterus - ENT Exam ENT Exam: Mucous Membranes Moist - Respiratory Exam Respiratory Exam: NORMAL BREATHING PATTERN - Cardiovascular Exam Cardiovascular Exam: REGULAR RHYTHM - GI/Abdominal Exam GI & Abdominal Exam: Soft. absent: Tenderness - Neurological Exam Neurological Exam: Alert, Awake, Oriented x3 - Psychiatric Exam Psychiatric exam: Normal Affect, Normal Mood - Skin Skin Exam: Dry, Intact, Warm Additional comments: jaundice Assessment and Plan - Assessment and Plan (Free Text) Assessment: 78 M with obstructive jaundice and acute renal failure Plan: -Liquid diet -Patient refusing dialysis and dialysis catheter -Primary plans IV hydration for now -Nephro following -Discussed with Dr. Royce Stewart PGY2
[2018-08-29 08:35] LABS: CALCIUM 7.9 mg/dl (8.6-10.4)
[2018-08-29 08:36] LABS: ALB/GLOB RATIO 0.8 (1.0-2.1); ALBUMIN 2.4 g/dL (3.5-5.0)
[2018-08-29 09:21] LABS: LYMPH # 1.6 K/uL (1.0-4.3); MONO # 1.4 K/uL (0.0-0.8)
[2018-08-29] MEDS ORDERED: Potassium Chloride 20 mEq ER Tab PO ONE (10:00)
[2018-08-29] MEDS ORDERED: Influenza Vaccine 60 MCG/0.5 ML SYR (3 yr & up) IM ONE (10:00)
[2018-08-29] MEDS ORDERED: Pneumococcal 23-Valent Vaccine SC ONE (10:00)
[2018-08-29] MEDS: Potassium Chloride 20 mEq ER Tab PO SCH (10:07)
--- NOTE | 2018-08-29 10:40 | RAD ---
Date of service: 08/29/2018 HISTORY: renal failure, r/o volume overload COMPARISON: 08/26/2018 FINDINGS: LUNGS: Moderate venous congestion. Scattered patchy airspace consolidative opacities throughout both lungs. Scattered nodular densities in both lung casiano. Biapical thickening with upper lobe granulomatous changes. Bilateral hilar prominence. PLEURA: No significant pleural effusion identified, no pneumothorax apparent. CARDIOVASCULAR: Aortic atherosclerotic calcification present Enlarged ectatic aorta. Cardiomegaly. OSSEOUS STRUCTURES: Degenerative changes in the spine and shoulders. VISUALIZED UPPER ABDOMEN: Normal. OTHER FINDINGS: None. IMPRESSION: Moderate venous congestion. Scattered patchy airspace consolidative opacities throughout both lungs. Scattered nodular densities in both lung casiano. Biapical thickening with upper lobe granulomatous changes. Bilateral hilar prominence. Cardiomegaly.
--- NOTE | 2018-08-29 10:56 | CP.PCM.PN ---
Subjective - Date & Time of Evaluation Date of Evaluation: 08/29/18 Time of Evaluation: 10:53 - Subjective Subjective: No new c/o Transfer held awaiting dialysis. Patient has been refusing dialysis. Objective - Vital Signs/Intake and Output Vital Signs (last 24 hours): Temp Pulse Resp BP Pulse Ox 97.9 F 80 20 134/78 99 08/29/18 07:43 08/29/18 07:44 08/29/18 07:43 08/29/18 07:43 08/29/18 07:43 Intake and Output: 08/29/18 08/29/18 06:59 18:59 Intake Total 3425 Balance 3425 - Medications Medications: Current Medications Famotidine (Pepcid) 20 mg IVP DAILY [facility] Last Admin: 08/29/18 10:07 Dose: 20 mg Piperacillin Sod/Tazobactam (Sod 2.25 gm/ Sodium Chloride) 50 mls @ 100 mls/hr IV Q6H ANASTASIA; Protocol Last Admin: 08/29/18 09:06 Dose: 100 mls/hr Sodium Bicarbonate 150 meq/ (Dextrose) 1,150 mls @ 50 mls/hr IV .Q23H ANASTASIA Last Admin: 08/28/18 14:00 Dose: 50 mls/hr Sodium Chloride (Sodium Chloride 0.9%) 1,000 mls @ 100 mls/hr IV .Q10H ANASTASIA Last Admin: 08/29/18 06:35 Dose: 100 mls/hr Potassium Chloride (K-Dur 20 Meq Er Tab) 20 meq PO DAILY [facility] Last Admin: 08/29/18 10:07 Dose: 20 meq - Labs Labs: 08/29/18 06:45 08/29/18 06:45 PT 14.2 SECONDS (9.7-12.2) H D 08/28/18 11:11 INR 1.3 D 08/28/18 11:11 APTT 35 SECONDS (21-34) H D 08/28/18 11:11 - Constitutional Appears: No Acute Distress - Eye Exam Eye Exam: EOMI, PERRL, Scleral icterus - Respiratory Exam Respiratory Exam: NORMAL BREATHING PATTERN - Cardiovascular Exam Cardiovascular Exam: REGULAR RHYTHM - GI/Abdominal Exam GI & Abdominal Exam: Soft, Normal Bowel Sounds. absent: Tenderness, Mass, Rebound - Extremities Exam Extremities Exam: Normal Inspection Assessment and Plan (1) Bile duct stenosis Assessment & Plan: Awaiting transfer to for further management, ERCP, EUS. Status: Acute (2) Obstructive jaundice Assessment & Plan: as above Status: Acute (3) Renal failure (ARF), acute on chronic Assessment & Plan: Awaiting dialysis if patient agreeable Status: Acute
[2018-08-29] MEDS: Sodium Bicarbonate 8.4% 150 MEQ in Dextrose 5% In Water 1,000 ML IV SCH (13:39)
[2018-08-29 18:48] LABS: INR 1.4; PROTHROMBIN TIME 15.2 SECONDS (9.7-12.2)
[2018-08-29 19:04] LABS: CALCIUM 8.2 mg/dl (8.6-10.4)
[2018-08-29] MEDS ORDERED: Phytonadione 10 mg/ml Inj (Adult) SC STA (19:43)
--- NOTE | 2018-08-30 | PN ---
DATE: 08/29/2018 SUBJECTIVE: Wilder Garcia appears weaker. Going to the bathroom having very frequent bowel movements according to him, also urinating a little bit. He has zero appetite. He denies any f ever or chills. No chest pain or shortness of breath. Goes to the bathroom with some assistance. He says he walked. REVIEW OF SYSTEMS: Rest of the review of systems is otherwise negative. PHYSICAL EXAMINATION: GENERAL: He appears very tired, deeply icteric. In no cardiopulmonary distress. VITAL SIGNS: Remains fairly stable, remains afebrile at 97.7, blood pressure 140/84, heart rate about 77, on telemetry, O2 saturation 99% on room air. NECK: The jugular veins remains flat at 45 degrees inclination. LUNGS: Remain totally clear. No evidence of rhonchi or crepitation. HEART: Heart sounds normal in intensity and regular. ABDOMEN: Remains nontender. CHAINSTITCH TUNNEL ELASTIC OPERATOR EXAM: At times appears , but then he gets it with the conversation. No focal deficits. COMPLEMENTARY DATA: Creatinine went from 5.7 yesterday, today 6.4 despite given some intravenous fluid. Everything else remains pretty much the same with potassium at borderline low at 3.3. He is getting potassium supplements. Liver enzymes, etc., all look in the same range, significantly elevated. Dr. Crane came to see the patient with the family to place the temporary hemodialysis catheter. He will do that tomorrow and he will probably be dialyzed tomorrow afternoon for the first time. I had a very long discussion with the family, sister Erica Lawson at the bedside and I met one of the daughters with the . They are all aware of this situation and actually I brought the son-in-law to the doctor's lounge and we had a long conversation and we will do some pictures, etc., of what the situation is with this bile duct blockage. 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 I doubt very much that we are dealing here with some kind of benign situation here. PLAN: He is getting support. He is on antibiotic prophylactically for ascending cholangitis, etc, again cholangitis. He is getting small amount of intravenous fluid because he has significant bowel movement and we will proceed accordingly. I spoke with Dr. Crane. He will insert the hemodialysis catheter tomorrow first thing in the morning. Condition is extremely ill. Family is aware of this situation. Ryne Wagoner MD
[2018-08-30] MEDS: Piperacillin/Tazobact 2.25 GM in Sodium Chloride 0.9% 50 ML IV SCH ×4 (01:47→19:18)
--- NOTE | 2018-08-30 06:31 | PN ---
DATE: 08/27/2018 LOCATION: The patient is presently in ICU, bed 14 A. SUBJECTIVE: He was admitted overnight to ICU after he was evaluated by plate printer and requested by Dr. Vides. Overall, no significant change, but receiving intravenous fluid, sodium chloride at 100 mL an hour without any problems. He also received several doses of vitamin K subcu. No new complaints. No pain. No shortness of breath. No dizziness. His stools remain jolly colored as initially and urine remains . He is tolerating fluids by mouth also without any problems. Rest of the review of systems was otherwise negative. PHYSICAL EXAMINATION: VITAL SIGNS: Appears relatively and then gradually very good and stable. Blood pressure actually has increased, at noontime it was 150 systolic. Continuous cardiac monitoring showed about 70 per minute rate, O2 saturation was unremarkable at 100%. He is clinically afebrile. SKIN: The icterus remains extremely prominent. No change in the overall physical status from yesterday. NECK: The jugular veins are not distended. LUNGS: Remains clear. HEART: Sounds normal in intensity and regular. ABDOMEN: Remains nontender and soft. CENTRAL NERVOUS SYSTEM: Intact. COMPLEMENTARY DATA: Today reveals the hemoglobin slightly down at 12, but this is normal for him. Yesterday, he was extremely hemoconcentrated due to dehydration. Creatinine today has gone down, but just borderline from yesterday and is slightly decreased rather than going up, from 5.8 yesterday to 5.4 after receiving intravenous fluid. Bilirubin has gone up a little from 52 to 56 and INR after several doses of vitamin K subcu has gone from 4.5 yesterday to 3 today. CA 19-9 antigen significantly elevated at 243, normally seen with pancreatic neoplasm, etc. This morning, I received a phone call from Dr. Vides, the ball mill operator and I cannot thank him enough for taking care of this severe situation. He was going to arrange transfer to the [facility] ball mill operator and pathologist specializing in this area and has some tools that we do not have available here in this pretty severe obstructive icterus. I got a phone call from [facility] from the transfer center coordinator and then I spoke with Dr. White and I went to the ICU and I spoke with the ICU attending, Dr. Chicas, and with the medical billing associate Dr. Sabino Benitez, made him aware of the transferring situation and they will send all pertinent information and print all the notes of the history and physical, imaging results, blood test results, etc., so they could get a clear understanding of the situation and if they need to call me, I will be more than happy to speak with them on the telephone also. I mentioned this to Dr. Robson White; telephone number [phone] at [facility]; NUMD. IMPRESSION: 1. Obstructive icterus, post-hepatic obstruction, probably secondary to pancreatic cancer or primary cholangiocarcinoma until proven otherwise. 2. Severe prerenal azotemia. Creatine appears to be improving with intravenous fluid. 3. Coagulopathy secondary to the obstructive icteric syndrome. PLAN: Continue IV fluids. Vitamin K subcu. I spoke with the resident because he is now on heparin prophylactically; however, we discussed the situation and it may be prudent to discontinue that heparin subcu for DVT prophylaxis. In the meantime, we will proceed with the protocol for transferring to [facility]. I express my most sincere gratitude to everybody involved in this case; Dr. Vides, Dr. Chicas, Dr. Benitez, and the other medical billing associate, for their help and input. Ryne Wagoner MD
--- NOTE | 2018-08-30 06:32 | PN ---
DATE: 08/28/2018 LOCATION: [place] now transferred to telemetry, room 556 B. SUBJECTIVE: Mr. Garcia is in the process of being transferred to [facility] formally known as [facility], but today there were some new developments. The renal failure appears to be slightly worse and when the [facility] called to finalize the transfer, they got an update in his medical status and the nephrologists Dr. Gerard spoke with the receiving physician at the [facility], Dr. Acevedo, and the transfer has been put on hold at least temporarily until the situation gets improved. The temporary hemodialysis was discussed. Later on, I was notified. I spoke with both the knitting inspector Dr. Gerard as well as with the physician gastroenterology specialist at [facility], Dr. Acevedo at great length, and we all agree to try to stabilize this better because at this point in time they would not be able to do anything at the [place]. This gentleman is in disparate need of endoscopic ultrasound-guided ERCP to try to identify the common bile duct obstruction that he had and get pathology as well as perhaps do some stenting. This procedure cannot be done here at [facility] because apparently we do not have some of the tools and expert required for this degree of this serious situation. I came to see him because of the situation with possible dialysis. Going over the patient as well as the medications etc, I saw that the IV fluids were decreased yesterday to 50 mL in an hour perhaps contributing to the slight increase in the creatinine which is severely abnormal anyway. When he came in, it was 5.6 to 5.8. After intravenous fluid because he was deeply dehydrated and prerenal in my opinion, the creatinine began to drop; however after the fluids decreased, there has been a bump in the creatinine again as well as the BUN. Other than that, they have been no significant changes. He remains hemodynamically stable. He denies any fever or chills and definitely denies any shortness of breath. He is very weak, but he walks to the bathroom system because he has almost very very frequent loose stool, almost oily obviously glycol due to the bile obstruction. PHYSICAL EXAMINATION: GENERAL: Remains deeply icteric and is always itching and scratching hard to see him like this, but that is only his complaint. He feels the same when he fell several days ago at the house, and we had a very very long discussion about the situation at this point in time as well as the temporary delay in transferring him to the [facility] for this endoscopic procedure. VITAL SIGNS: At this point in time, his vital signs remain stable. He is now in telemetry after we discussed the situation with the nephrology, Dr. Gerard, because I mentioned to him that we should give him a good trial of intravenous fluid and see if there is any positive response. His blood pressure remains relatively normal though it is knowing him is 140/70, which is likely normal for everybody but for him still in the low side. Heart rate is totally normal and now in telemetry is about 70 per minute, off any medications. He remains afebrile and O2 saturation in room air is 98%. SKIN: Deeply icteric has been since I saw him first time on Thursday. NECK: From the cardiopulmonary status, the jugular veins are totally flat. LUNGS: Remain totally clear to auscultation. HEART: Heart sounds normal in intensity and regular about 70 per minutes. ABDOMEN: Totally, there is no localize tenderness, and I do not feel any organomegaly at this moment. CENTRAL NERVOUS SYSTEM: Alert and oriented in no distress whatsoever. LABORATORY DATA: Complementary data today shows that there has been an increase in the white count at 17.5, with some toxic granulation; however, he has been for several days now placed on tigecycline in view of the potential superimposed infection. Hemoglobin and hematocrit remain stable. Platelets might be elevated due to underlying malignancy etc. INR has been now normalized, very close to normal at 1.3, when he came in was 4 to 4.5. I gave him some vitamin K subcutaneously and is close to normalized INR. The main problem remains the significant renal component here with the creatinine going up slightly to 5.7, on arrival here on 08/26/2018 was 5.8. It came down the following day to 5.4 after he received several liters of fluid from the emergency room to the floor, and now today it is 5.7. Hopefully, this may react specifically once we increased the intravenous fluids again which we are doing right now. Potassium actually has been normal and today was slightly low at 3.5, but now he is getting some potassium supplement orally 20 MEq. Bilirubin remains more or less the same levels today. Liver enzymes obviously remain significantly elevated. IMPRESSION: 1. 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 2. Renal failure. I am sure that he has some parenchymal disease and superimposed of profound prerenal azotemia which we were trying to correct. 3. Coagulopathy secondary to biliary obstruction. PLAN: I had a very long conversation with the knitting inspector, Dr. Gerard, and we have right now agreed to give him more fluid going from the 50 mL that he was getting, somebody decreased that to 50 mL yesterday, and we are giving some bolus saline as well as we continue with 125 mL/h until tomorrow morning at least 12 hours and then would decrease that to 100 mL/h and leave it like this for at least [address] Gerard discussed the situation with the patient. The patient did not want to sign the consent for dialysis until we spoke and had a very long conversation with Mr. Garcia as well as with his sister at the bedside, Mrs. Kearney. I told him that we are going to give him a trial of intravenous fluid. I discussed the situation with . In addition, Dr. Crane has been contacted via the international affairs vice president to proceed with insertion of a temporary hemodialysis catheter. Hopefully, there is no emergency to do at this moment today or tomorrow. Most likely, this hopefully will be if needed done sometime Thursday, and then we will proceed with this situation as necessary. Again, I spoke with Dr. Acevedo, the receiving physician at the [facility] and I appreciate I already felt and once we have the situation in better control, will proceed with the transfer. Dr. Acevedo told me that he has contacted Dr. Vides and had alerted him that the transfer is going to be temporarily delayed until this renal situation gets into better control. Ryne Wagoner MD
--- NOTE | 2018-08-30 07:22 | CP.PCM.PN ---
Subjective - Date & Time of Evaluation Date of Evaluation: 08/29/18 Time of Evaluation: 17:45 - Subjective Subjective: Nephrology progress note: Patient with pmh of sitational hypertension, admitted with biliary obstruction and acute renal failure; currently awaiting transfer to [facility] for ERCP; Eating very little; no nausea/vomiting but still with recurrent loose stools; denies any shortness of breath; Objective - Vital Signs/Intake and Output Vital Signs (last 24 hours): Temp Pulse Resp BP Pulse Ox 97.6 F 79 20 134/78 100 08/29/18 23:20 08/29/18 23:20 08/29/18 23:20 08/29/18 23:20 08/29/18 23:20 Intake and Output: 08/30/18 08/30/18 06:59 18:59 Intake Total 1650 Balance 1650 - Medications Medications: Current Medications Famotidine (Pepcid) 20 mg IVP DAILY [facility] Last Admin: 08/29/18 10:07 Dose: 20 mg Piperacillin Sod/Tazobactam (Sod 2.25 gm/ Sodium Chloride) 50 mls @ 100 mls/hr IV Q6H [facility]; Protocol Last Admin: 08/30/18 01:47 Dose: 100 mls/hr Sodium Bicarbonate 150 meq/ (Dextrose) 1,150 mls @ 50 mls/hr IV .Q23H [facility] Last Admin: 08/29/18 13:39 Dose: 50 mls/hr Sodium Chloride (Sodium Chloride 0.9%) 1,000 mls @ 50 mls/hr IV .Q20H [facility] Last Admin: 08/29/18 18:38 Dose: 50 mls/hr Potassium Chloride (K-Dur 20 Meq Er Tab) 20 meq PO DAILY [facility] Last Admin: 08/29/18 10:07 Dose: 20 meq - Labs Labs: 08/29/18 06:45 08/29/18 18:32 PT 15.2 SECONDS (9.7-12.2) H 08/29/18 18:32 INR 1.4 08/29/18 18:32 APTT 35 SECONDS (21-34) H D 08/28/18 11:11 - Constitutional Appears: No Acute Distress - Eye Exam Eye Exam: Scleral icterus - ENT Exam ENT Exam: Mucous Membranes Moist - Respiratory Exam Respiratory Exam: Clear to Ausculation Bilateral. absent: Rales, Rhonchi, Respiratory Distress - Cardiovascular Exam Cardiovascular Exam: RRR Additional comments: possible friction rub; - GI/Abdominal Exam GI & Abdominal Exam: Soft. absent: Distended, Tenderness - Extremities Exam Additional comments: mildly edematous b/l lower legs - Neurological Exam Neurological Exam: Alert, Awake Additional comments: responding appropriately; - Skin Skin Exam: Warm. absent: Cyanosis Additional comments: jaundiced Assessment and Plan (1) Acute renal failure Assessment & Plan: Borderline oliguric renal failure in the setting of obstructive jaundice; unfortunately no improvement despite adequate volume repletion over the past 24 hrs; profound but stable metabolic acidosis on bicarb drip; mild hypokalemia due to loose stools; uremia progressing; -Will proceed with plan as discussed yesterday with PMD to have vascular surgery insert HD catheter tomorrow morning and commence with HD; patient is agreeable to HD, consent signed today in my presence; -Will need daily HD sessions before patient can be stabilized for any elective endoscopic procedure; first 2 HD sessions will be with low blood flow to avoid dialysis dysequlibrium that is seen in very uremic patients initiated on HD; -Continue bicarb drip for now (D5W w/ 150 meq sodium bicarb at 50 cc/hr); -Decreasing NS to 50 cc/hr (CXR showing increased pulm vasc congestion, although patient is still comfortable lying flat); -Avoid nephrotoxic agents (NSAIDS, phosphate enema, etc); -Replenishing K prn; -Encouraged to consume diet as much as possible; Thank you for this referral, we will continue to follow closely. Status: Acute (2) Metabolic acidosis Status: Acute (3) Obstructive jaundice Status: Acute (4) Hypokalemia Status: Acute
[2018-08-30 08:06] LABS: HEMOGLOBIN 10.8 g/dL (12.0-18.0); MEAN CELL VOLUME 84.5 fL (80.0-94.0); MEAN CORPUSCULAR HEMOGLOBIN 30.2 pg (27.0-31.0); MEAN CORPUSCULAR HGB CONC 35.7 g/dL (33.0-37.0); MEAN PLATELET VOLUME 9.2 fL (7.2-11.7); PLATELET COUNT 273 K/uL (130-400); RBC 3.58 Mil/uL (4.40-5.90); WHITE BLOOD COUNT 16.5 K/uL (4.8-10.8)
--- NOTE | 2018-08-30 08:22 | CP.PCM.PN ---
Subjective - Date & Time of Evaluation Date of Evaluation: 08/30/18 Time of Evaluation: 08:17 - Subjective Subjective: Patient refused dialysis over the weekend. He denies having abdominal pain, nausea, vomiting. He continues to complain of frequent bowel movements. Objective - Vital Signs/Intake and Output Vital Signs (last 24 hours): Temp Pulse Resp BP Pulse Ox 98.5 F 84 20 128/72 99 08/30/18 08:02 08/30/18 08:02 08/30/18 08:02 08/30/18 08:02 08/30/18 08:02 Intake and Output: 08/30/18 08/30/18 06:59 18:59 Intake Total 1650 Balance 1650 - Medications Medications: Current Medications Famotidine (Pepcid) 20 mg IVP DAILY [facility] Last Admin: 08/29/18 10:07 Dose: 20 mg Piperacillin Sod/Tazobactam (Sod 2.25 gm/ Sodium Chloride) 50 mls @ 100 mls/hr IV Q6H [facility]; Protocol Last Admin: 08/30/18 01:47 Dose: 100 mls/hr Sodium Bicarbonate 150 meq/ (Dextrose) 1,150 mls @ 50 mls/hr IV .Q23H [facility] Last Admin: 08/29/18 13:39 Dose: 50 mls/hr Sodium Chloride (Sodium Chloride 0.9%) 1,000 mls @ 50 mls/hr IV .Q20H [facility] Last Admin: 08/29/18 18:38 Dose: 50 mls/hr Potassium Chloride (K-Dur 20 Meq Er Tab) 20 meq PO DAILY [facility] Last Admin: 08/29/18 10:07 Dose: 20 meq - Labs Labs: 08/29/18 06:45 08/29/18 18:32 PT 15.2 SECONDS (9.7-12.2) H 08/29/18 18:32 INR 1.4 08/29/18 18:32 APTT 35 SECONDS (21-34) H D 08/28/18 11:11 - Constitutional Appears: No Acute Distress - Head Exam Head Exam: ATRAUMATIC, NORMOCEPHALIC - Eye Exam Eye Exam: EOMI, PERRL, Scleral icterus - Neck Exam Neck Exam: absent: Lymphadenopathy, Thyromegaly - Respiratory Exam Respiratory Exam: NORMAL BREATHING PATTERN. absent: Rales, Rhonchi, Wheezes - Cardiovascular Exam Cardiovascular Exam: REGULAR RHYTHM, +S1, +S2. absent: Gallop, Rubs, Murmur - GI/Abdominal Exam GI & Abdominal Exam: Soft, Normal Bowel Sounds. absent: Tenderness, Mass, Organomegaly - Rectal Exam Rectal Exam: Deferred - Extremities Exam Extremities Exam: Pedal Edema. absent: Calf Tenderness Assessment and Plan (1) Obstructive jaundice Assessment & Plan: MRCP also shows a distal biliary stricture with dilatation of extra-hepatic and intra-hepatic bile ducts, but no discrete mass. Coagulopathy has improved, with PT down to 15.2. Jaundice (TBILI 50.4) and renal failure (BUN 136, Cr 6.9) are unchanged. The original plan was for transfer to [facility], for EUS and ERCP. It is not clear if refusal of dialysis will affect these plans. Status: Acute
[2018-08-30 08:58] LABS: ALB/GLOB RATIO 0.8 (1.0-2.1); ALBUMIN 2.5 g/dL (3.5-5.0); CALCIUM 7.7 mg/dl (8.6-10.4)
[2018-08-30 09:05] LABS: LYMPH # 1.2 K/uL (1.0-4.3)
[2018-08-30 09:06] LABS: MONO # 1.3 K/uL (0.0-0.8)
[2018-08-30 09:10] LABS: BANDS 2 % (0-2); EOSINOPHIL 1 % (0-4); LYMPHOCYTE 6 % (20-40); MONOCYTE 9 % (0-10); NEUTROPHIL 82 % (50-75); PLATELET ESTIMATE NORMAL (NORMAL); TOTAL CELLS COUNTED 100
[2018-08-30 09:11] LABS: ANISOCYTOSIS SLIGHT; GIANT PLATELETS PRESENT; HYPOCHROMIC SLIGHT; POIKILOCYTOSIS SLIGHT
[2018-08-30 09:12] LABS: LARGE PLATELETS PRESENT; MICROCYTOSIS SLIGHT
[2018-08-30] MEDS ORDERED: HEPARIN-NS 5,000 UNITS/500 ML 5,000 UNIT/500 ML BAG IV ONE (09:36)
[2018-08-30] MEDS ORDERED: Lidocaine Hydrochloride 10 ML INJ ONE (09:37)
[2018-08-30] MEDS: Potassium Chloride 20 mEq ER Tab PO SCH (10:31)
[2018-08-30] MEDS ORDERED: Midazolam 2 MG/2 ML VIAL ONE (10:37)
[2018-08-30] MEDS ORDERED: Propofol 10 mg/ml Inj (20 ML) ONE (10:37)
[2018-08-30] MEDS ORDERED: Lidocaine Hydrochloride 5 ML INJ ONE (10:52)
[2018-08-30] MEDS ORDERED: Oxycodone/Acetaminophen 5/325 mg Tab PO PRN (11:42)
--- NOTE | 2018-08-30 11:46 | PCM.SURG1 ---
Surgeon's Initial Post Op Note - Surgeon's Notes Surgeon: Dr. Crane Applied Psychology Professor: Nick Polanco PGY3 Type of Anesthesia: General LMA Anesthesia Administered By: Hoa Pre-Operative Diagnosis: Acute Renal Failure Operative Findings: none Post-Operative Diagnosis: Acute Renal Failure Operation Performed: Right IJ Permacath insertion Specimen/Specimens Removed: none Estimated Blood Loss: EBL {In ML}: 5 Blood Products Given: N/A Drains Used: No Drains Post-Op Condition: Good Date of Surgery/Procedure: 08/30/18 Time of Surgery/Procedure: 11:05
--- NOTE | 2018-08-30 13:16 | RAD ---
Date of service: 08/30/2018 HISTORY: permacath in PACU COMPARISON: August 29, 2018 FINDINGS: LUNGS: No active pulmonary disease. PLEURA: No significant pleural effusion identified, no pneumothorax apparent. CARDIOVASCULAR: No atherosclerotic calcification present No radiographic findings to suggest acute or significant cardiovascular disease. Venous access catheter in satisfactory position. OSSEOUS STRUCTURES: No significant abnormalities. VISUALIZED UPPER ABDOMEN: Normal. OTHER FINDINGS: None. IMPRESSION: Status post PermCath placement. Catheter tip overlying the expected location of the right atrium/cavoatrial junction. No pneumothorax.
--- NOTE | 2018-08-30 14:07 | RAD ---
Date of service: 08/30/2018 PROCEDURE: Intraoperative Fluoroscopy. HISTORY: RENAL FAILURE FINDINGS: Fluoroscopic assistance was provided for right-sided PermCath placement. Please refer to the operative report from VANDANA Moran.
[2018-08-30] MEDS: Sodium Chloride 0.9% 1,000 ML IV SCH ×2 (14:15→19:19)
[2018-08-30] MEDS: Sodium Bicarbonate 8.4% 150 MEQ in Dextrose 5% In Water 1,000 ML IV SCH ×2 (14:15→19:19)
[2018-08-30] MEDS ORDERED: Mannitol 12.5 gm/50 ml Inj IV ONE ×2 (14:45)
--- NOTE | 2018-08-30 16:10 | CP.PCM.PN ---
Subjective - Date & Time of Evaluation Date of Evaluation: 08/30/18 Time of Evaluation: 15:00 - Subjective Subjective: 78 yo M w/ episodic htn, admitted with obstructive jaundice, acute renal failure; Patient seen during 1st HD session; s/p R IJ tunneled HD cath placement earlier today; had been NPO for the procedure; no shortness of breath; not reporting any pain; Objective - Vital Signs/Intake and Output Vital Signs (last 24 hours): Temp Pulse Resp BP Pulse Ox 97.5 F L 74 20 103/56 L 97 08/30/18 14:20 08/30/18 14:20 08/30/18 14:20 08/30/18 15:30 08/30/18 14:20 Intake and Output: 08/30/18 08/30/18 06:59 18:59 Intake Total 1650 1100 Balance 1650 1100 - Medications Medications: Current Medications Famotidine (Pepcid) 20 mg IVP DAILY [facility] Last Admin: 08/30/18 10:31 Dose: Not Given Piperacillin Sod/Tazobactam (Sod 2.25 gm/ Sodium Chloride) 50 mls @ 100 mls/hr IV Q6H [facility]; Protocol Last Admin: 08/30/18 14:16 Dose: Not Given Sodium Bicarbonate 150 meq/ (Dextrose) 1,150 mls @ 50 mls/hr IV .Q23H [facility] Last Admin: 08/30/18 14:15 Dose: Not Given Sodium Chloride (Sodium Chloride 0.9%) 1,000 mls @ 50 mls/hr IV .Q20H [facility] Last Admin: 08/30/18 14:15 Dose: Not Given Oxycodone/Acetaminophen (Percocet 5/325 Mg Tab) 2 tab PO Q4H PRN PRN Reason: Pain, moderate (4-7) Stop: 09/02/18 11:43 Potassium Chloride (K-Dur 20 Meq Er Tab) 20 meq PO DAILY [facility] Last Admin: 08/30/18 10:31 Dose: Not Given - Labs Labs: 08/30/18 07:49 08/30/18 07:49 PT 15.2 SECONDS (9.7-12.2) H 08/29/18 18:32 INR 1.4 08/29/18 18:32 APTT 35 SECONDS (21-34) H D 10/20/18 11:11 - Constitutional Appears: Non-toxic, No Acute Distress - Eye Exam Eye Exam: Scleral icterus - Respiratory Exam Respiratory Exam: Clear to Ausculation Bilateral. absent: Respiratory Distress - Cardiovascular Exam Cardiovascular Exam: Bradycardia Additional comments: periods of bradycardia during HD; somewhat distant sounds; - GI/Abdominal Exam GI & Abdominal Exam: Soft. absent: Distended, Tenderness - Extremities Exam Additional comments: mildly edematous - Neurological Exam Neurological Exam: Alert, Awake Additional comments: following commands; - Skin Skin Exam: Warm. absent: Cyanosis Additional comments: jaundiced; Assessment and Plan (1) Acute renal failure Assessment & Plan: ALPHONSO in the setting of obstructive jaundice, with borderline oliguria; worsening uremia; profound metabolic acidosis, otherwise relatively stable electrolyte and volume status; initiating HD today with low blood flow to avoid dialysis dyse quilibrium and goal of keeping net positive fluid balance in the setting of relative hypotension (SBP in low 100's) and transient bradycardia; giving mannitol during treatment to avoid sudden fluid shifts and changes in osmolality; -planning for daily HD sessions with progressively increased blood flow in this profoundly uremic patient; -continue IVF in the setting of relative hypotension (getting total of 100 cc/hr of isotonic fluids); -obtaining echo to rule out uremic pericardial effusion; -correcting hypokalemic with higher potassium dialysate; -will correct acidosis slowly with HD and continued bicarb drip; -continue zosyn empirically (dosed for HD); -avoid nephrotoxic agents; Status: Acute (2) Obstructive jaundice Assessment & Plan: Awaiting ERCP for definitive diagnosis, and relief of obstruction to allow for renal recovery; goal is to optmize uremic/metabolic status with daily HD before patient can proceed safely with ERCP; Status: Acute (3) Metabolic acidosis Status: Acute (4) Hypokalemia Status: Acute - Assessment and Plan (Free Text) Assessment: Thank you for allowing us to participate in the care of Mr. Garcia, we will continue to follow closely.
--- NOTE | 2018-08-30 19:36 | OP ---
PROCEDURE DATE: 08/30/2018 PREOPERATIVE DIAGNOSIS: Renal failure. POSTOPERATIVE DIAGNOSIS: Renal failure. PROCEDURES CARRIED OUT: Placement of Perm-A-Cath, right jugular vein with C-arm fluoroscopy, ultrasound-guided puncture, and micropuncture technique. SURGEON: Harrison Crane Jr., MD SOFTWARE ENGINEERING MANAGER: Nick Polanco DO ANESTHESIOLOGIST: Huey Garcia MD INDICATIONS: The patient is an older middle-aged man with renal insufficiency, now requiring dialysis, currently he also has severe jaundice. OPERATIVE FINDINGS: Catheter was inserted uneventfully via the right jugular vein. DESCRIPTION OF PROCEDURE: Using ultrasound guidance and micropuncture technique, the right jugular vein was cannulated. Under fluoroscopic control, a FiberWire was placed into the inferior vena cava. The sheath dilator was passed over this and the catheter was positioned in the appropriate position. It was flushed with heparinized saline and there was good flow. Blood loss during procedure was 10 mL. It was originated on the right chest wall and went through the right jugular vein and terminated at the superior vena cava. It was flushed with heparinized saline and the procedure was terminated. OPERATIONS CARRIED OUT: Perm-A-Cath, right jugular vein with C-arm fluoroscopy, ultrasound-guided puncture, and micropuncture technique. Harrison Crane Jr., MD
[2018-08-30] MEDS ORDERED: Sodium Chloride 0.9% 500 ML IV ONE (22:15)
[2018-08-30 22:54] LABS: BASO % 0.1 % (0.0-2.0); EOS # 0.2 K/uL (0.0-0.7); HEMOGLOBIN 9.5 g/dL (12.0-18.0); MEAN CORPUSCULAR HGB CONC 34.6 g/dL (33.0-37.0); MEAN PLATELET VOLUME 9.6 fL (7.2-11.7); PLATELET COUNT 280 K/uL (130-400); RBC 3.16 Mil/uL (4.40-5.90); RED CELL DISTRIBUTION WIDTH 19.2 % (11.5-14.5); WHITE BLOOD COUNT 18.7 K/uL (4.8-10.8)
[2018-08-30 22:56] LABS: ALB/GLOB RATIO 0.8 (1.0-2.1); ALBUMIN 2.5 g/dL (3.5-5.0); CALCIUM 7.9 mg/dl (8.6-10.4)
[2018-08-30 23:01] LABS: MEAN CELL VOLUME 86.6 fL (80.0-94.0)
[2018-08-30 23:07] LABS: CK-MB 3.6 ng/mL (0.0-3.38); TROPONIN I 0.075 ng/mL (0.00-0.120)
--- NOTE | 2018-08-30 23:13 | CP.PCM.CON ---
History of Present Illness - History of Present Illness History of Present Illness: ICU evaluation requested for low Blood pressure 78yo male with sever jaundice ,Renal insufficiency had 1st time HD today.Has been hypotensive since morning on IV fluids.Patient was weak walking to toilet,required assistance and found to have Systolic BP in the 80's.Patient was NPO last night for procedure today denies chest pain,palpitations, difficulty breathing. Review of Systems - Review of Systems Systems not reviewed;Unavailable: Unstable Vital Signs - Constitutional Constitutional: absent: Chills, Fever - EENT Eyes: absent: Blurred Vision Ears: absent: Dizziness Nose/Mouth/Throat: absent: Bleeding Gums, Sore Throat - Cardiovascular Cardiovascular: absent: Chest Pain, Rapid Heart Rate - Respiratory Respiratory: absent: Cough - Gastrointestinal Gastrointestinal: absent: Abdominal Pain - Genitourinary Genitourinary: absent: Dysuria Past Patient History - Past Medical History & Family History Past Medical History?: Yes - Past Social History Smoking Status: Former Smoker - CARDIAC Hx Hypertension: Yes (Borderline HTN, not on meds) - PULMONARY Hx Respiratory Disorders: No - NEUROLOGICAL Hx Neurological Disorder: No - HEENT Hx HEENT Problems: Yes Other/Comment: 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 - RENAL Hx Chronic Kidney Disease: No - ENDOCRINE/METABOLIC Hx Endocrine Disorders: No - HEMATOLOGICAL/ONCOLOGICAL Hx Blood Disorders: No - INTEGUMENTARY Hx Dermatological Problems: Yes Hx Basil Cell: Yes (Nose) Other/Comment: Left parotid nodule - MUSCULOSKELETAL/RHEUMATOLOGICAL Hx Musculoskeletal Disorders: No - GASTROINTESTINAL Hx Gastrointestinal Disorders: Yes Hx Hemorrhoids: Yes - GENITOURINARY/GYNECOLOGICAL Hx Genitourinary Disorders: No - PSYCHIATRIC Hx Psychophysiologic Disorder: No Hx Substance Use: No - SURGICAL HISTORY Hx Tonsillectomy: Yes - ANESTHESIA Hx Anesthesia: Yes Hx Anesthesia Reactions: No Hx Malignant Hyperthermia: No Has any member of the family had a problem w/ anesthesia?: No Meds Allergies/Adverse Reactions: Allergies Allergy/AdvReac Type Severity Reaction Status Date / Time No Known Allergies Allergy Verified 08/26/18 12:30 - Medications Medications: Current Medications Famotidine (Pepcid) 20 mg PO DAILY ANASTASIA Piperacillin Sod/Tazobactam (Sod 2.25 gm/ Sodium Chloride) 50 mls @ 100 mls/hr IV Q6H ANASTASIA; Protocol Last Admin: 08/30/18 19:18 Dose: 100 mls/hr Sodium Bicarbonate 150 meq/ (Dextrose) 1,150 mls @ 50 mls/hr IV .Q23H ANASTASIA Last Admin: 08/30/18 19:19 Dose: 50 mls/hr Sodium Chloride (Sodium Chloride 0.9%) 1,000 mls @ 50 mls/hr IV .Q20H ANASTASIA Last Admin: 08/30/18 19:19 Dose: 50 mls/hr Oxycodone/Acetaminophen (Percocet 5/325 Mg Tab) 2 tab PO Q4H PRN PRN Reason: Pain, moderate (4-7) Stop: 09/02/18 11:43 Potassium Chloride (K-Dur 20 Meq Er Tab) 20 meq PO DAILY ANASTASIA Last Admin: 08/30/18 10:31 Dose: Not Given Physical Exam - Constitutional Appears: No Acute Distress - Head Exam Head Exam: ATRAUMATIC, NORMAL INSPECTION, NORMOCEPHALIC - Eye Exam Eye Exam: EOMI, Normal appearance, Scleral icterus - ENT Exam ENT Exam: Mucous Membranes Moist - Neck Exam Neck exam: Positive for: Normal Inspection - Respiratory Exam Respiratory Exam: Clear to Auscultation Bilateral - Cardiovascular Exam Cardiovascular Exam: Tachycardia, Irregular Rhythm - GI/Abdominal Exam GI & Abdominal Exam: Distended, Normal Bowel Sounds. absent: Guarding - Extremities Exam Extremities exam: Positive for: pedal edema - Neurological Exam Neurological exam: Alert, Oriented x3 Results - Vital Signs Recent Vital Signs: Last Vital Signs Temp 97.8 F 08/30/18 20:08 Pulse 116 H 08/30/18 21:47 Resp 18 08/30/18 17:11 BP 96/53 L 08/30/18 21:47 Pulse Ox 97 08/30/18 20:08 - Labs Result Diagrams: 08/30/18 22:51 08/30/18 22:29 Labs: Laboratory Results - last 24 hr 08/30/18 08/30/18 08/30/18 07:49 07:49 21:16 WBC 16.5 H RBC 3.58 L Hgb 10.8 L Hct 30.3 L MCV 84.5 MCH 30.2 MCHC 35.7 RDW 18.0 H Plt Count 273 MPV 9.2 Neut % (Auto) 85.0 H Lymph % (Auto) 7.0 L [place] % (Auto) 8.0 Eos % (Auto) 0.0 Baso % (Auto) 0.0 Neut # (Auto) 14.0 H Lymph # (Auto) 1.2 [place] # (Auto) 1.3 H Eos # (Auto) 0.0 Baso # (Auto) 0.0 Neutrophils % (Manual) 82 H Band Neutrophils % 2 Lymphocytes % (Manual) 6 L Monocytes % (Manual) 9 Eosinophils % (Manual) 1 Platelet Estimate Normal Large Platelets Present Giant Platelets Present Hypochromasia (manual) Slight Poikilocytosis (manual Slight Anisocytosis (manual) Slight Microcytosis (manual) Slight Sodium 142 Potassium 3.7 Chloride 110 H Carbon Dioxide 14 L Anion Gap 22 H BUN 142 H* Creatinine 7.6 H* Est GFR ( Amer) 8 Est GFR (Non-Af Amer) 7 POC Glucose (mg/dL) 105 Random Glucose 100 Calcium 7.7 L Phosphorus 6.4 H Magnesium 2.5 H Total Bilirubin 46.8 H AST 129 H D ALT 210 H Alkaline Phosphatase 332 H Total Creatine Kinase CK-MB (Mass) Troponin I Total Protein 5.7 L Albumin 2.5 L Globulin 3.2 Albumin/Globulin Ratio 0.8 L 08/30/18 08/30/18 08/30/18 22:29 22:38 22:51 WBC 18.7 H RBC 3.16 L Hgb 9.5 L Hct 27.4 L MCV 86.6 D MCH 30.0 MCHC 34.6 RDW 19.2 H Plt Count 280 MPV 9.6 Neut % (Auto) 58.9 Lymph % (Auto) 33.4 [place] % (Auto) 6.3 Eos % (Auto) 1.3 Baso % (Auto) 0.1 Neut # (Auto) 11.0 H Lymph # (Auto) 6.2 H [place] # (Auto) 1.2 H Eos # (Auto) 0.2 Baso # (Auto) 0.0 Neutrophils % (Manual) Band Neutrophils % Lymphocytes % (Manual) Monocytes % (Manual) Eosinophils % (Manual) Platelet Estimate Large Platelets Giant Platelets Hypochromasia (manual) Poikilocytosis (manual Anisocytosis (manual) Microcytosis (manual) Sodium 143 Potassium 4.2 Chloride 113 H Carbon Dioxide 14 L Anion Gap 21 H BUN 104 H* D Creatinine 6.4 H Est GFR ( Amer) 10 Est GFR (Non-Af Amer) 9 POC Glucose (mg/dL) Random Glucose 94 Calcium 7.9 L Phosphorus Magnesium Total Bilirubin 45.4 H AST 138 H ALT 195 H Alkaline Phosphatase 302 H Total Creatine Kinase 63 CK-MB (Mass) 3.60 H Troponin I 0.0750 Total Protein 5.9 L Albumin 2.5 L Globulin 3.4 Albumin/Globulin Ratio 0.8 L - EKG Data EKG Interpreted by: Myself Rate: Tachycardia - EKG Data EKG comments: atrial fibrillation - Imaging and Cardiology Chest x-ray Status: Image reviewed by me, Report reviewed by me Assessment & Plan - Assessment and Plan (Free Text) Assessment: 1.Hypotension-BP improved with IV fluids BP 104/68mmHg, Hr 104/min ?eitiology 1st time HD,Npo for procedure ? early sepsis 2.Leucocytosis Blood cultures done yesterday on IV antibiotics 3.New onset atrial fibrillation.Troponin normal f/u rpt troponin,consider Cardiology evaluation 4.Renal failure on HD 5.Elevated LFT-MRCP shows a distal biliary stricture with dilatation of extra- hepatic and intra-hepatic bile ducts work up as per Gi 6.Anemia-f/u H/h Continue telemetry monitoring.
[2018-08-30 23:36] LABS: LYMPH # 0.4 K/uL (1.0-4.3); MONO # 0.4 K/uL (0.0-0.8)
[2018-08-30 23:37] LABS: ANISOCYTOSIS SLIGHT; HYPOCHROMIC SLIGHT; LYMPHOCYTE 4 % (20-40); MONOCYTE 4 % (0-10); NEUTROPHIL 92 % (50-75); PLATELET ESTIMATE NORMAL (NORMAL); POIKILOCYTOSIS SLIGHT; TOTAL CELLS COUNTED 100
[2018-08-30 23:38] LABS: TARGET CELLS SLIGHT
[2018-08-31] MEDS: Piperacillin/Tazobact 2.25 GM in Sodium Chloride 0.9% 50 ML IV SCH ×4 (01:53→20:29)
[2018-08-31] MEDS: Sodium Chloride 0.9% 1,000 ML IV SCH ×2 (03:10→11:03)
--- NOTE | 2018-08-31 06:27 | PN ---
DATE: 08/30/2018 SUBJECTIVE: I saw, Mr. Garcia, several times today. Earlier when he went for the hemodialysis, Permacath insertion by Dr. Crane. I saw him in the recovery room. His vital signs were stable. I woke him up. He was slightly sedated. He was able to communicate. He laughed, he talked briefly to us about some politics, and he offered no complaint. X-ray had been just done, and it was awaiting reading. PHYSICAL EXAMINATION: VITAL SIGNS: At that point in time, his vital signs again were stable. Blood pressure was about 130/70 to 140/70. Continuous cardiac monitoring is showing a sinus rhythm with occasional PVCs. Respiratory rate, O2 saturation were remarkable. CHEST AND NECK: The right side of the chest and neck was covered with a dressing in the area where the hemodialysis catheter was inserted earlier by Dr. Crane who was still in the operating room. HEART: Sounded normal in intensity and regular. LUNGS: Clear. ABDOMEN: Soft. No complaints about it. PRODUCTION TRAINER: He was alert. He knew me. We talked briefly about politics, etc. I asked him if he was thirsty or if he wanted to drink. The nurse went into to bring him some apple juice. Later on, he did go up directed from there. He went to hemodialysis. When I stopped to see him briefly, and when I came back later on when I got a phone call that his blood pressure had dropped into the 90s and so the heart rate also dropped, I spoke with Dr. Gerard, the advertising internship, they gave him some fluids. Also they gave him some crystalloids, etc, and the blood pressure came right up. By the time that I got there, his blood pressure was in the 120s. Heart rate was in the 80s, but appeared to be some kind of issue happening between the heart rate, dialysis machine reporting about 40 beats per minute versus the telemetry at that floor on power, reporting 80 and I came to the conclusion that was due to occasional PVCs that the renal unit's equipment was not able to identify the PVCs, etc. Anyhow if he was awake, alert, we talked, the nurses talked with him, etc, and the plan was to just discontinue dialysis. I spoke with Dr. Gerard, and he was going to have about 1-1/2 to 2 hours or so and to have these repeated again tomorrow. Concomitant at the same time, I got a phone call from [facility], Dr. Sinha, the receiving buncher machine looking from him an update for a potential transfer. I mentioned to him that the patient was in the process of having hemodialysis, and he was going to have it for the next two or three days and had discussed the situation with the advertising internship, and after that, if everything continues to be stable, he was going to be then transferred to them. We concluded that I was going to give Dr. Sinha at the [facility], the receiving center a call when we captured that point. ASSESSMENT: 1. 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 2. Acute kidney injury, uremic syndrome secondary to above. 3. Hypotensive episode during early dialysis, probably related to hypovolemia, etc, and he had been hypovolemic because of the situation. PLAN: At this point in time, he is going to receive some intravenous fluid. We discussed with the advertising internship the x-ray we reviewed that seems to be clear. No evidence of any fluid overload. I even reviewed the one yesterday also. At this point in time, no evidence of any fluid overload so he received some fluid, and no evidence of any pneumothorax, etc. I have discussed with the advertising internship, we will try to get an echocardiogram tomorrow to evaluate his cardiac function as he mentioned some recurrent effusion as we all know all patients with endstage renal disease in chronic basis may develop pericardial effusion. I do not think if there is any effusion or hemopericardium, it does not seem to be happening in relationship with these transient hypotension which was corrected with fluid during dialysis. Ryne Wagoner MD
--- NOTE | 2018-08-31 08:08 | CP.PCM.PN ---
Subjective - Date & Time of Evaluation Date of Evaluation: 08/31/18 Time of Evaluation: 08:07 - Subjective Subjective: Rapid response was called this morning for hypotension, systolic BP in richard 80s. He is awake but lethargic. He denies having abdominal pain, nausea, vomiting. Objective - Vital Signs/Intake and Output Vital Signs (last 24 hours): Temp Pulse Resp BP Pulse Ox 97.9 F 96 H 20 102/65 96 08/31/18 07:00 08/31/18 07:00 08/31/18 07:00 08/31/18 05:09 08/31/18 07:00 Intake and Output: 08/31/18 08/31/18 06:59 18:59 Intake Total 800 Balance 800 - Medications Medications: Current Medications Albumin Human (Albumin Human 25% (12.5 Gm/50 Ml)) 12.5 gm IV ONCE ONE Stop: 08/31/18 08:07 Famotidine (Pepcid) 20 mg PO DAILY [facility] Piperacillin Sod/Tazobactam (Sod 2.25 gm/ Sodium Chloride) 50 mls @ 100 mls/hr IV Q6H ANASTASIA; Protocol Last Admin: 08/31/18 01:53 Dose: 100 mls/hr Sodium Bicarbonate 150 meq/ (Dextrose) 1,150 mls @ 50 mls/hr IV .Q23H ANASTASIA Last Admin: 08/30/18 19:19 Dose: 50 mls/hr Sodium Chloride (Sodium Chloride 0.9%) 1,000 mls @ 50 mls/hr IV .Q20H ANASTASIA Last Admin: 08/31/18 03:10 Dose: 50 mls/hr Oxycodone/Acetaminophen (Percocet 5/325 Mg Tab) 2 tab PO Q4H PRN PRN Reason: Pain, moderate (4-7) Stop: 09/02/18 11:43 Potassium Chloride (K-Dur 20 Meq Er Tab) 20 meq PO DAILY ANASTASIA Last Admin: 08/30/18 10:31 Dose: Not Given - Labs Labs: 08/30/18 22:51 08/30/18 22:29 PT 15.2 SECONDS (9.7-12.2) H 08/29/18 18:32 INR 1.4 08/29/18 18:32 APTT 35 SECONDS (21-34) H D 08/28/18 11:11 - Constitutional Appears: No Acute Distress - Head Exam Head Exam: ATRAUMATIC, NORMOCEPHALIC - Eye Exam Eye Exam: Scleral icterus - Neck Exam Neck Exam: absent: Lymphadenopathy, Thyromegaly - Respiratory Exam Respiratory Exam: NORMAL BREATHING PATTERN. absent: Rales, Rhonchi, Wheezes - Cardiovascular Exam Cardiovascular Exam: REGULAR RHYTHM, +S1, +S2. absent: Gallop, Rubs, Murmur - GI/Abdominal Exam GI & Abdominal Exam: Distended, Soft, Normal Bowel Sounds. absent: Tenderness, Organomegaly - Rectal Exam Rectal Exam: Deferred - Extremities Exam Extremities Exam: Pedal Edema. absent: Calf Tenderness Assessment and Plan (1) Obstructive jaundice Assessment & Plan: Patient has hypotension and elevated WBC 18,700, possible sepsis. Suggest ICU monitoring and follow through with transfer to [facility]. Status: Acute
--- NOTE | 2018-08-31 08:10 | PCM.RRT ---
<Gautam Benitez - Last Filed: 08/31/18 08:07> TELECOMMUNICATIONS REPAIRER Nurses Assessment - Situation Date: 08/31/18 Time TELECOMMUNICATIONS REPAIRER was called: 08:07 TELECOMMUNICATIONS REPAIRER Location:: Med/Surg Room Number: 556B TELECOMMUNICATIONS REPAIRER Called By: RN New IV Insertion Tolerance: Good - Respiratory TELECOMMUNICATIONS REPAIRER Delivery Method: Room Air - Recommendations 5) TELECOMMUNICATIONS REPAIRER Level of Care Recommendations: Transfer to ICU I.Reason for TELECOMMUNICATIONS REPAIRER - A) Acute Change in Patient: (Select all that apply): Acute change in SBP below (91/60) - Neurological Status (Select all that apply): Confused, Lethargic - Respiratory Oxygen Delivery Method: Room Air - Constitutional Appears: Confused - Head Head Exam: ATRAUMATIC, NORMAL INSPECTION - Eyes Eye Exam: Scleral icterus - Respiratory Exam Respiratory Exam: absent: Respiratory Distress - Cardiovascular Exam Cardiovascular Exam: RRR, +S1, +S2 - GI/Abdominal Exam GI & Abdominal Exam: Soft. absent: Tenderness - Neurological Exam Neurological Exam: Altered Plan - Assessment of Findings&Treatment Plan Rapid called. Acute drop oin Pt BP 80/60 on IVF Given albumin 25%/50 f/u blood cultures, cbc, cmp, ammonia, coags Dr Baum compensation supervisor called for consult rec to upgrade to ICU transfer to ICU <Jennifer Beverly V - Last Filed: 08/31/18 23:02> TELECOMMUNICATIONS REPAIRER Nurses Assessment - Vital Signs Vital Signs: Rapid Response Vital Sign Blood Pressure 83/57 Pulse Rate 114 Oxygen Saturation 96 - Vital Signs at end of TELECOMMUNICATIONS REPAIRER Vital Signs at end of TELECOMMUNICATIONS REPAIRER: Rapid Response End Vital Sign Blood Pressure 97/63 Pulse Rate 107 Attending/Attestation - Attestation I have personally seen and examined this patient.: Yes I have fully participated in the care of the patient.: Yes I have reviewed all pertinent clinical information, including history, physical exam and plan: Yes Notes (Text): Brief Hospitalist Note TELECOMMUNICATIONS REPAIRER:hypotensive, lethargic confusion 78 year old Male with obstructive jaundice started on dialysis this admission, blood pressure improved but patient remains lethargic, possible sepsis. Patient started on Albumin to help increase blood pressure. Discussed with Dr. Baum, transferred to ICU for further monitoring.
[2018-08-31] MEDS ORDERED: Mannitol 12.5 gm/50 ml Inj IV ONE (08:30)
[2018-08-31] MEDS ORDERED: Albumin Human 25% (12.5 gm/50 ml) IV ONE (08:30)
[2018-08-31 09:22] LABS: ALB/GLOB RATIO 0.7 (1.0-2.1); ALBUMIN 2.4 g/dL (3.5-5.0); CALCIUM 7.8 mg/dl (8.6-10.4)
--- NOTE | 2018-08-31 09:37 | CP.PCM.PN ---
Subjective - Date & Time of Evaluation Date of Evaluation: 08/31/18 Time of Evaluation: 06:25 - Subjective Subjective: 78M was seen and examined at bedside this morning. Patient is s/p right IJ permacath placement for acute renal failure. Patient had CAP SEWER for hypotension. Went to ICU for monitor. Patient denies any fever, chills, N/V/D/C, abdominal pain. Objective - Vital Signs/Intake and Output Vital Signs (last 24 hours): Temp Pulse Resp BP Pulse Ox 98.2 F 104 H 20 103/62 98 08/31/18 09:00 08/31/18 09:00 08/31/18 09:00 08/31/18 09:00 08/31/18 09:00 Intake and Output: 08/31/18 08/31/18 06:59 18:59 Intake Total 800 Balance 800 - Medications Medications: Current Medications Famotidine (Pepcid) 20 mg PO DAILY ANASTASIA Piperacillin Sod/Tazobactam (Sod 2.25 gm/ Sodium Chloride) 50 mls @ 100 mls/hr IV Q6H ANASTASIA; Protocol Last Admin: 08/31/18 01:53 Dose: 100 mls/hr Sodium Bicarbonate 150 meq/ (Dextrose) 1,150 mls @ 50 mls/hr IV .Q23H ANASTASIA Last Admin: 08/30/18 19:19 Dose: 50 mls/hr Sodium Chloride (Sodium Chloride 0.9%) 1,000 mls @ 50 mls/hr IV .Q20H ANASTASIA Last Admin: 08/31/18 03:10 Dose: 50 mls/hr Oxycodone/Acetaminophen (Percocet 5/325 Mg Tab) 2 tab PO Q4H PRN PRN Reason: Pain, moderate (4-7) Stop: 09/02/18 11:43 Potassium Chloride (K-Dur 20 Meq Er Tab) 20 meq PO DAILY ANASTASIA Last Admin: 08/30/18 10:31 Dose: Not Given - Labs Labs: 08/30/18 22:51 08/31/18 08:07 PT 15.2 SECONDS (9.7-12.2) H 08/29/18 18:32 INR 1.4 08/29/18 18:32 APTT 48 SECONDS (21-34) H D 08/31/18 08:17 - Constitutional Appears: Non-toxic, Cachectic, Chronically Ill - Head Exam Head Exam: ATRAUMATIC, NORMAL INSPECTION, NORMOCEPHALIC - Eye Exam Eye Exam: EOMI, Scleral icterus - ENT Exam ENT Exam: Mucous Membranes Moist - Respiratory Exam Respiratory Exam: NORMAL BREATHING PATTERN. absent: Accessory Muscle Use - Cardiovascular Exam Cardiovascular Exam: Tachycardia - GI/Abdominal Exam GI & Abdominal Exam: Soft. absent: Tenderness - Extremities Exam Extremities Exam: Normal Inspection - Back Exam Back Exam: NORMAL INSPECTION (R IJ permacath in place. No bleeding. ) - Psychiatric Exam Psychiatric exam: Normal Affect, Normal Mood - Skin Skin Exam: Normal Color, Warm Assessment and Plan - Assessment and Plan (Free Text) Assessment: 78M s/p right IJ Permacath placement for acute renal failure Plan: s/p right IJ permacath placement No further surgical intervention at this time pending transfer to [facility] for possible pancreatic CA JYOTSNA Crane
--- NOTE | 2018-08-31 10:18 | RAD ---
Date of service: 08/31/2018 HISTORY: renal failure, tachypnea COMPARISON: 08/30/2018 FINDINGS: LUNGS: Mild venous congestion. PLEURA: Blunted left costophrenic angle suggestive for trace effusion. CARDIOVASCULAR: Aortic atherosclerotic calcification present Enlarged ectatic aorta. Cardiomegaly. OSSEOUS STRUCTURES: Degenerative changes in spine. VISUALIZED UPPER ABDOMEN: Normal. OTHER FINDINGS: Right central venous catheter in stable position. IMPRESSION: No significant interval change.
[2018-08-31 10:26] LABS: HEMOGLOBIN 9.8 g/dL (12.0-18.0); MEAN CELL VOLUME 85.2 fL (80.0-94.0); MEAN CORPUSCULAR HEMOGLOBIN 29.8 pg (27.0-31.0); MEAN CORPUSCULAR HGB CONC 34.9 g/dL (33.0-37.0); MEAN PLATELET VOLUME 9.3 fL (7.2-11.7); RBC 3.3 Mil/uL (4.40-5.90); RED CELL DISTRIBUTION WIDTH 18.5 % (11.5-14.5)
[2018-08-31 10:53] LABS: ALB/GLOB RATIO 0.8 (1.0-2.1); ALBUMIN 2.5 g/dL (3.5-5.0); CALCIUM 7.6 mg/dl (8.6-10.4)
[2018-08-31] MEDS ORDERED: Albumin Human 25% (12.5 gm/50 ml) IV STA (11:00)
[2018-08-31 11:45] LABS: LYMPH # 2.2 K/uL (1.0-4.3); MONO # 1.8 K/uL (0.0-0.8)
--- NOTE | 2018-08-31 13:50 | CP.PCM.PN ---
Subjective - Date & Time of Evaluation Date of Evaluation: 08/31/18 Time of Evaluation: 13:47 - Subjective Subjective: Nephrology Progress Note for Dr. Gerard: Patient seen and examined at bedside. WIRE COATING MACHINE OPERATOR called today due to hypotension. Albumin administered on floor and patient was transferred to ICU. Patient appears lethargic and answers questions minimally, stating that he feels tired. But patient otherwise denies CP, SOB, n/v/d, fever, chills, or pain. Objective - Vital Signs/Intake and Output Vital Signs (last 24 hours): Temp Pulse Resp BP Pulse Ox 97.8 F 105 H 15 113/70 100 08/31/18 12:15 08/31/18 12:15 08/31/18 12:15 08/31/18 12:15 08/31/18 12:15 Intake and Output: 08/31/18 08/31/18 06:59 18:59 Intake Total 800 120 Balance 800 120 - Medications Medications: Current Medications Famotidine (Pepcid) 20 mg PO DAILY [facility]STAS[facility] Piperacillin Sod/Tazobactam (Sod 2.25 gm/ Sodium Chloride) 50 mls @ 100 mls/hr IV Q6H ANASTASIA; Protocol Last Admin: 08/31/18 11:01 Dose: Not Given Sodium Bicarbonate 150 meq/ (Dextrose) 1,150 mls @ 50 mls/hr IV .Q23H ANASTASIA Last Admin: 08/30/18 19:19 Dose: 50 mls/hr Sodium Chloride (Sodium Chloride 0.9%) 1,000 mls @ 50 mls/hr IV .Q20H ANASTASIA Last Admin: 08/31/18 11:03 Dose: Not Given Oxycodone/Acetaminophen (Percocet 5/325 Mg Tab) 2 tab PO Q4H PRN PRN Reason: Pain, moderate (4-7) Stop: 09/02/18 11:43 Potassium Chloride (K-Dur 20 Meq Er Tab) 20 meq PO DAILY ANASTASIA Last Admin: 08/30/18 10:31 Dose: Not Given - Labs Labs: 08/31/18 10:16 08/31/18 10:16 PT 15.2 SECONDS (9.7-12.2) H 08/29/18 18:32 INR 1.4 08/29/18 18:32 APTT 48 SECONDS (21-34) H D 08/31/18 08:17 - Constitutional Appears: Toxic, Chronically Ill - Head Exam Head Exam: ATRAUMATIC, NORMOCEPHALIC - Eye Exam Eye Exam: EOMI, Scleral icterus - ENT Exam ENT Exam: Mucous Membranes Moist - Neck Exam Neck Exam: Normal Inspection Additional comments: R IJ tunneled HD cath in place, no signs of erythema, discharge, or hematoma - Respiratory Exam Respiratory Exam: Clear to Ausculation Bilateral. absent: Rales, Rhonchi, Wheezes - Cardiovascular Exam Cardiovascular Exam: RRR, +S1, +S2. absent: Gallop, Rubs, Murmur - GI/Abdominal Exam GI & Abdominal Exam: Soft, Tenderness. absent: Distended, Guarding, Rebound - Extremities Exam Extremities Exam: Normal Inspection - Neurological Exam Neurological Exam: Awake - Skin Skin Exam: Dry, Intact, Warm. absent: Normal Color (Jaundice) Assessment and Plan - Assessment and Plan (Free Text) Assessment: 78 year old M no significant PMHx originally presented with light colored stools, dark urine, and progressive jaundice was found to have ALPHONSO in the setting of obstructive jaundice with borderline oliguria, worsening uremia, and profound metabolic acidosis. WIRE COATING MACHINE OPERATOR called this AM for hypotension, patient was subsequently transferred to ICU. Plan: 1. Acute renal failure/Uremia - HD started yesterday with low blood flow to avoid dialysis dysequilibrium - Will cont HD daily with steady increase in blood flow - WIRE COATING MACHINE OPERATOR called due to hypotension today; HD goal of net positive fluid balance to avoid further hypotension - Cont Mannitol with HD to maintain steady osmolality - Cont IVF with total 100 cc/hr - F/u echo r/o uremic pericardial effusion, however no friction rub noted on exam today - Cont to avoid nephrotic agents 2. Obstructive jaundice - Awaiting transfer for ERCP and EUS; obstruction correction should allow for renal recovery - Patient needs to be optimized from uremic standpoint with daily HD prior to procedure 3. Sepsis - Hypotensive, leukocytosis - Likely biliary source - Cont Zosyn, dosed for HD 4. Metabolic acidosis - Cont bicarb gtt to correct acidosis 5. Hypokalemia - Cont PO KCl 20 mEq daily Patient seen and discussed in detail with Dr. Gerard. Aquiles Hope, DO PGY2
[2018-08-31] MEDS: Potassium Chloride 20 mEq ER Tab PO SCH (14:33)
[2018-08-31 17:51] LABS: INR 1.3; PROTHROMBIN TIME 13.9 SECONDS (9.7-12.2)
--- NOTE | 2018-08-31 18:23 | CP.PCM.CON ---
<Paddy Ontiveros - Last Filed: 08/31/18 18:26> History of Present Illness - History of Present Illness History of Present Illness: PGY1 Critical Care Consult Note for Dr. Baum Patient is a 78-year-old male with PMH of HTN who was sent to the hospital by his PMD (Dr. 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 Patient was initially admitted to the floor. Of note, was found to be in ALPHONSO; uremic syndome, likely secondary to above. Patient required hemodialysis (first time) and is status-post permacath insertion by Dr. Crane. During dialysis, patient became hypotensive likely due to hypovolemia and was treated with IVF. Brush Material Preparer (Dr. Almendarez consulted). ECHO was obtained. Report pending. PRIMARY SPECIAL EDUCATION TEACHER was called this morning at 08/31/18 for hypotension during dialysis. Albumin was administered on the floor. Patient otherwise denies chest pain, shortness of breath, nausea, vomiting, diarrhea, fever, chills, and/or pain. Review of Systems - Review of Systems All systems: reviewed and no additional remarkable complaints except - Constitutional Constitutional: As Per HPI - EENT Eyes: As Per HPI Nose/Mouth/Throat: As Per HPI - Cardiovascular Cardiovascular: As Per HPI - Respiratory Respiratory: As Per HPI - Gastrointestinal Gastrointestinal: As Per HPI - Genitourinary Genitourinary: As Per HPI - Musculoskeletal Musculoskeletal: As Per HPI - Integumentary Integumentary: As Per HPI - Neurological Neurological: As Per HPI - Psychiatric Psychiatric: As Per HPI Past Patient History - Past Medical History & Family History Past Medical History?: Yes - Past Social History Smoking Status: Former Smoker - CARDIAC Hx Hypertension: Yes (Borderline HTN, not on meds) - PULMONARY Hx Respiratory Disorders: No - NEUROLOGICAL Hx Neurological Disorder: No - HEENT Hx HEENT Problems: Yes Other/Comment: 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 - RENAL Hx Chronic Kidney Disease: No - ENDOCRINE/METABOLIC Hx Endocrine Disorders: No - HEMATOLOGICAL/ONCOLOGICAL Hx Blood Disorders: No - INTEGUMENTARY Hx Dermatological Problems: Yes Hx Basil Cell: Yes (Nose) Other/Comment: Left parotid nodule - MUSCULOSKELETAL/RHEUMATOLOGICAL Hx Musculoskeletal Disorders: No - GASTROINTESTINAL Hx Gastrointestinal Disorders: Yes Hx Hemorrhoids: Yes - GENITOURINARY/GYNECOLOGICAL Hx Genitourinary Disorders: No - PSYCHIATRIC Hx Psychophysiologic Disorder: No Hx Substance Use: No - SURGICAL HISTORY Hx Tonsillectomy: Yes - ANESTHESIA Hx Anesthesia: Yes Hx Anesthesia Reactions: No Hx Malignant Hyperthermia: No Has any member of the family had a problem w/ anesthesia?: No Meds Allergies/Adverse Reactions: Allergies Allergy/AdvReac Type Severity Reaction Status Date / Time No Known Allergies Allergy Verified 08/26/18 12:30 - Medications Medications: Current Medications Famotidine (Pepcid) 20 mg PO DAILY [facility] Last Admin: 08/31/18 14:34 Dose: 20 mg Piperacillin Sod/Tazobactam (Sod 2.25 gm/ Sodium Chloride) 50 mls @ 100 mls/hr IV Q6H [facility]; Protocol Last Admin: 08/31/18 14:26 Dose: 100 mls/hr Sodium Chloride (Sodium Chloride 0.9%) 1,000 mls @ 50 mls/hr IV .Q20H [facility] Last Admin: 08/31/18 11:03 Dose: Not Given Oxycodone/Acetaminophen (Percocet 5/325 Mg Tab) 2 tab PO Q4H PRN PRN Reason: Pain, moderate (4-7) Stop: 09/02/18 11:43 Potassium Chloride (K-Dur 20 Meq Er Tab) 20 meq PO DAILY [facility] Last Admin: 08/31/18 14:33 Dose: 20 meq Physical Exam - Additional Findings Additional findings: Constitutional Appears: Toxic, patient appears chronically ill - Head Exam Head Exam: ATRAUMATIC, NORMOCEPHALIC - Eye Exam Eye Exam: EOMI, Scleral icterus - ENT Exam ENT Exam: Mucous Membranes Moist - Neck Exam Neck Exam: Normal Inspection Additional comments: R IJ tunneled HD cath in place, no signs of erythema, discharge, or hematoma - Respiratory Exam Respiratory Exam: Clear to Ausculation Bilateral. absent: Rales, Rhonchi, Wheezes - Cardiovascular Exam Cardiovascular Exam: RRR, +S1, +S2. absent: Gallop, Rubs, Murmur - GI/Abdominal Exam GI & Abdominal Exam: Soft, Tenderness. absent: Distended, Guarding, Rebound - Extremities Exam Extremities Exam: Normal Inspection - Neurological Exam Neurological Exam: Awake - Skin Skin Exam: Dry, Intact, Warm. Positive for jaundice. Results - Vital Signs Recent Vital Signs: Last Vital Signs Temp 97.8 F 08/31/18 12:15 Pulse 110 H 08/31/18 18:00 Resp 20 08/31/18 18:00 BP 97/64 L 08/31/18 18:00 Pulse Ox 98 08/31/18 18:00 - Labs Result Diagrams: 08/31/18 10:16 08/31/18 10:16 Labs: Laboratory Results - last 24 hr 08/30/18 08/30/18 08/30/18 07:10 21:16 22:29 WBC RBC Hgb Hct MCV MCH MCHC RDW Plt Count MPV Neut % (Auto) Lymph % (Auto) [place] % (Auto) Eos % (Auto) Baso % (Auto) Neut # (Auto) Lymph # (Auto) [place] # (Auto) Eos # (Auto) Baso # (Auto) Neutrophils % (Manual) Lymphocytes % (Manual) Monocytes % (Manual) Platelet Estimate Hypochromasia (manual) Poikilocytosis (manual Anisocytosis (manual) Target Cells PT INR APTT Sodium 143 Potassium 4.2 Chloride 113 H Carbon Dioxide 14 L Anion Gap 21 H BUN 104 H* D Creatinine 6.4 H Est GFR ( Amer) 10 Est GFR (Non-Af Amer) 9 POC Glucose (mg/dL) 105 Random Glucose 94 Calcium 7.9 L Magnesium Total Bilirubin 45.4 H AST 138 H ALT 195 H Alkaline Phosphatase 302 H Ammonia Total Creatine Kinase CK-MB (Mass) Troponin I Total Protein 5.9 L Albumin 2.5 L Globulin 3.4 Albumin/Globulin Ratio 0.8 L Procalcitonin Stool Occult Blood Stool Leukocytes, Qual Negative Blood Type Antibody Screen 08/30/18 08/30/18 08/31/18 22:38 22:51 08:07 WBC 18.7 H RBC 3.16 L Hgb 9.5 L Hct 27.4 L MCV 86.6 D MCH 30.0 MCHC 34.6 RDW 19.2 H Plt Count 280 MPV 9.6 Neut % (Auto) 95.0 H Lymph % (Auto) 2.0 L [place] % (Auto) 2.0 Eos % (Auto) 1.0 Baso % (Auto) 0.1 Neut # (Auto) 18.0 H Lymph # (Auto) 0.4 L [place] # (Auto) 0.4 Eos # (Auto) 0.2 Baso # (Auto) 0.0 Neutrophils % (Manual) 92 H Lymphocytes % (Manual) 4 L Monocytes % (Manual) 4 Platelet Estimate Normal Hypochromasia (manual) Slight Poikilocytosis (manual Slight Anisocytosis (manual) Slight Target Cells Slight PT INR APTT Sodium 143 Potassium 3.9 Chloride 112 H Carbon Dioxide 15 L Anion Gap 21 H BUN 110 H* Creatinine 6.8 H Est GFR ( Amer) 10 Est GFR (Non-Af Amer) 8 POC Glucose (mg/dL) Random Glucose 105 Calcium 7.8 L Magnesium 2.4 H Total Bilirubin 41.0 H AST 145 H ALT 191 H Alkaline Phosphatase 296 H Ammonia Total Creatine Kinase 63 CK-MB (Mass) 3.60 H Troponin I 0.0750 Total Protein 5.7 L Albumin 2.4 L Globulin 3.3 Albumin/Globulin Ratio 0.7 L Procalcitonin Stool Occult Blood Stool Leukocytes, Qual Blood Type Antibody Screen 08/31/18 08/31/18 08/31/18 08:17 08:17 08:17 WBC RBC Hgb Hct MCV MCH MCHC RDW Plt Count MPV Neut % (Auto) Lymph % (Auto) [place] % (Auto) Eos % (Auto) Baso % (Auto) Neut # (Auto) Lymph # (Auto) [place] # (Auto) Eos # (Auto) Baso # (Auto) Neutrophils % (Manual) Lymphocytes % (Manual) Monocytes % (Manual) Platelet Estimate Hypochromasia (manual) Poikilocytosis (manual Anisocytosis (manual) Target Cells PT INR APTT 48 H D Sodium Potassium Chloride Carbon Dioxide Anion Gap BUN Creatinine Est GFR ( Amer) Est GFR (Non-Af Amer) POC Glucose (mg/dL) Random Glucose Calcium Magnesium Total Bilirubin AST ALT Alkaline Phosphatase Ammonia 20 D Total Creatine Kinase CK-MB (Mass) Troponin I Total Protein Albumin Globulin Albumin/Globulin Ratio Procalcitonin 3.15 H Stool Occult Blood Stool Leukocytes, Qual Blood Type Antibody Screen 08/31/18 08/31/18 08/31/18 08:17 10:16 10:16 WBC 20.0 H RBC 3.30 L Hgb 9.8 L Hct 28.1 L MCV 85.2 MCH 29.8 MCHC 34.9 RDW 18.5 H Plt Count 273 MPV 9.3 Neut % (Auto) 80.0 H Lymph % (Auto) 11.0 L [place] % (Auto) 9.0 Eos % (Auto) 0.0 Baso % (Auto) 0.0 Neut # (Auto) 16.0 H Lymph # (Auto) 2.2 [place] # (Auto) 1.8 H Eos # (Auto) 0.0 Baso # (Auto) 0.0 Neutrophils % (Manual) Lymphocytes % (Manual) Monocytes % (Manual) Platelet Estimate Hypochromasia (manual) Poikilocytosis (manual Anisocytosis (manual) Target Cells PT INR APTT Sodium 143 Potassium 4.0 Chloride 111 H Carbon Dioxide 17 L Anion Gap 20 BUN 110 H* Creatinine 6.9 H Est GFR ( Amer) 9 Est GFR (Non-Af Amer) 8 POC Glucose (mg/dL) Random Glucose 103 Calcium 7.6 L Magnesium Total Bilirubin 45.5 H AST 139 H ALT 179 H Alkaline Phosphatase 287 H Ammonia Total Creatine Kinase CK-MB (Mass) Troponin I Total Protein 5.7 L Albumin 2.5 L Globulin 3.2 Albumin/Globulin Ratio 0.8 L Procalcitonin Stool Occult Blood Stool Leukocytes, Qual Blood Type O POSITIVE Antibody Screen Negative 08/31/18 08/31/18 11:48 17:37 WBC RBC Hgb Hct MCV MCH MCHC RDW Plt Count MPV Neut % (Auto) Lymph % (Auto) [place] % (Auto) Eos % (Auto) Baso % (Auto) Neut # (Auto) Lymph # (Auto) [place] # (Auto) Eos # (Auto) Baso # (Auto) Neutrophils % (Manual) Lymphocytes % (Manual) Monocytes % (Manual) Platelet Estimate Hypochromasia (manual) Poikilocytosis (manual Anisocytosis (manual) Target Cells PT 13.9 H INR 1.3 APTT 42 H D Sodium Potassium Chloride Carbon Dioxide Anion Gap BUN Creatinine Est GFR ( Amer) Est GFR (Non-Af Amer) POC Glucose (mg/dL) Random Glucose Calcium Magnesium Total Bilirubin AST ALT Alkaline Phosphatase Ammonia Total Creatine Kinase CK-MB (Mass) Troponin I Total Protein Albumin Globulin Albumin/Globulin Ratio Procalcitonin Stool Occult Blood Positive H Stool Leukocytes, Qual Blood Type Antibody Screen Assessment & Plan - Assessment and Plan (Free Text) Assessment: Patient is a 78-year-old male with PMH of HTN who was sent to the hospital by his PMD (Dr. Wagoner) on 08/26 for chief complaint of light colored stools, dark urine, and progressive jaundrice. ERCP was reocmmended due to new onset jaundic e. Patient was initially admitted to the floor. Of note, was found to be in ALPHONSO; uremic syndome, likely secondary to above. Patient required hemodialysis (first time) and is status-post permacath insertion by Dr. Crane. During dialysis, patient became hypotensive likely due to hypovolemia and was treated with IVF. Brush Material Preparer (Dr. Almendarez consulted). ECHO was obtained. Report pending. PRIMARY SPECIAL EDUCATION TEACHER was called this morning at 08/31/18 for hypotension during dialysis. Albumin was administered on the floor. 78 [id number] M no significant PMHx originally presented with light colored stools, dark urine, and progressive jaundice was found to have ALPHONSO in the setting of obstructive jaundice with borderline oliguria, worsening uremia, and profound metabolic acidosis. PRIMARY SPECIAL EDUCATION TEACHER called this AM for hypotension, patient was subsequently transferred to ICU. Plan: Renal: - Acute renal failure/Uremia - HD started 08/30 with low blood flow to avoid dialysis dysequilibrium - Will cont HD daily with steady increase in blood flow - PRIMARY SPECIAL EDUCATION TEACHER called due to hypotension today; HD goal of net positive fluid balance to avoid further hypotension - Cont Mannitol with HD to maintain steady osmolality - Cont IVF with total 100 cc/hr - Discontinued bicarb drip - ECHO obtained, will follow-up on official read (rule out uremic pericardial effusion) - Avoid nephrotoxic agents - Hypokalemia; Cont PO KCl 20 mEq daily - Daily CMP, mag, phos CV: - Hypotension max 107/75, low 90/66 - Tachycardia (115 max today) - ECHO obtained, report pending - Dr. Crane consulted for HD cath; placed. - CXR 08/31: No significant interval change (mild venous congestion, blunted l eft costophrenic angle suggestive for trace effusion, Enlarged ectatic aorta. Cardiomegaly. Aortic atherosclerotic calcification present.) - Monitor Resp: - No acute issues - ECHO obtained, report pending - CXR 08/31: No significant interval change (mild venous congestion, blunted left costophrenic angle suggestive for trace effusion) GI: - Obstructive jaundice - Awaiting transfer for ERCP and EUS; obstruction correction should allow for renal recovery - Patient needs to be optimized from uremic standpoint with daily HD prior to procedure - GI consulted (Dr. Vides) - pending giardia Ag, EIA, Stool - Renal diet ID: - Hypotensive, leukocytosis - Likely biliary source - Cont Zosyn, dosed for HD - Continue with gentle hydration (NS @50cc/hr) - Daily CBC Heme: - PTT elevated - Monitor H/H - Monitor Coag panel - Daily CBC with diff Neuro: - No acute issues - A&Ox4 PPx: SCD contraindicated due to lower extremity edema. Pending PTT repeat tomorrow will start Heparin SC as PPx. GI: pepcid 20mg PO daily Patient seen and case discussed in detail with Dr. Bautista Ontiveros, PGY1 <Ac Baum S - Last Filed: 08/31/18 18:46> Meds - Medications Medications: Current Medications Famotidine (Pepcid) 20 mg PO DAILY [facility] Last Admin: 08/31/18 14:34 Dose: 20 mg Piperacillin Sod/Tazobactam (Sod 2.25 gm/ Sodium Chloride) 50 mls @ 100 mls/hr IV Q6H [facility]; Protocol Last Admin: 08/31/18 14:26 Dose: 100 mls/hr Sodium Chloride (Sodium Chloride 0.9%) 1,000 mls @ 50 mls/hr IV .Q20H [facility] Last Admin: 08/31/18 11:03 Dose: Not Given Oxycodone/Acetaminophen (Percocet 5/325 Mg Tab) 2 tab PO Q4H PRN PRN Reason: Pain, moderate (4-7) Stop: 09/02/18 11:43 Potassium Chloride (K-Dur 20 Meq Er Tab) 20 meq PO DAILY [facility] Last Admin: 08/31/18 14:33 Dose: 20 meq Results - Vital Signs Recent Vital Signs: Last Vital Signs Temp 97.8 F 08/31/18 12:15 Pulse 110 H 08/31/18 18:00 Resp 20 08/31/18 18:00 BP 97/64 L 08/31/18 18:00 Pulse Ox 98 08/31/18 18:00 - Labs Result Diagrams: 08/31/18 10:16 08/31/18 10:16 Labs: Laboratory Results - last 24 hr 08/30/18 08/30/18 08/30/18 07:10 21:16 22:29 WBC RBC Hgb Hct MCV MCH MCHC RDW Plt Count MPV Neut % (Auto) Lymph % (Auto) [place] % (Auto) Eos % (Auto) Baso % (Auto) Neut # (Auto) Lymph # (Auto) [place] # (Auto) Eos # (Auto) Baso # (Auto) Neutrophils % (Manual) Lymphocytes % (Manual) Monocytes % (Manual) Platelet Estimate Hypochromasia (manual) Poikilocytosis (manual Anisocytosis (manual) Target Cells PT INR APTT Sodium 143 Potassium 4.2 Chloride 113 H Carbon Dioxide 14 L Anion Gap 21 H BUN 104 H* D Creatinine 6.4 H Est GFR ( Amer) 10 Est GFR (Non-Af Amer) 9 POC Glucose (mg/dL) 105 Random Glucose 94 Calcium 7.9 L Magnesium Total Bilirubin 45.4 H AST 138 H ALT 195 H Alkaline Phosphatase 302 H Ammonia Total Creatine Kinase CK-MB (Mass) Troponin I Total Protein 5.9 L Albumin 2.5 L Globulin 3.4 Albumin/Globulin Ratio 0.8 L Procalcitonin Stool Occult Blood Stool Leukocytes, Qual Negative Blood Type Antibody Screen 08/30/18 08/30/18 08/31/18 22:38 22:51 08:07 WBC 18.7 H RBC 3.16 L Hgb 9.5 L Hct 27.4 L MCV 86.6 D MCH 30.0 MCHC 34.6 RDW 19.2 H Plt Count 280 MPV 9.6 Neut % (Auto) 95.0 H Lymph % (Auto) 2.0 L [place] % (Auto) 2.0 Eos % (Auto) 1.0 Baso % (Auto) 0.1 Neut # (Auto) 18.0 H Lymph # (Auto) 0.4 L [place] # (Auto) 0.4 Eos # (Auto) 0.2 Baso # (Auto) 0.0 Neutrophils % (Manual) 92 H Lymphocytes % (Manual) 4 L Monocytes % (Manual) 4 Platelet Estimate Normal Hypochromasia (manual) Slight Poikilocytosis (manual Slight Anisocytosis (manual) Slight Target Cells Slight PT INR APTT Sodium 143 Potassium 3.9 Chloride 112 H Carbon Dioxide 15 L Anion Gap 21 H BUN 110 H* Creatinine 6.8 H Est GFR ( Amer) 10 Est GFR (Non-Af Amer) 8 POC Glucose (mg/dL) Random Glucose 105 Calcium 7.8 L Magnesium 2.4 H Total Bilirubin 41.0 H AST 145 H ALT 191 H Alkaline Phosphatase 296 H Ammonia Total Creatine Kinase 63 CK-MB (Mass) 3.60 H Troponin I 0.0750 Total Protein 5.7 L Albumin 2.4 L Globulin 3.3 Albumin/Globulin Ratio 0.7 L Procalcitonin Stool Occult Blood Stool Leukocytes, Qual Blood Type Antibody Screen 08/31/18 08/31/18 08/31/18 08:17 08:17 08:17 WBC RBC Hgb Hct MCV MCH MCHC RDW Plt Count MPV Neut % (Auto) Lymph % (Auto) [place] % (Auto) Eos % (Auto) Baso % (Auto) Neut # (Auto) Lymph # (Auto) [place] # (Auto) Eos # (Auto) Baso # (Auto) Neutrophils % (Manual) Lymphocytes % (Manual) Monocytes % (Manual) Platelet Estimate Hypochromasia (manual) Poikilocytosis (manual Anisocytosis (manual) Target Cells PT INR APTT 48 H D Sodium Potassium Chloride Carbon Dioxide Anion Gap BUN Creatinine Est GFR ( Amer) Est GFR (Non-Af Amer) POC Glucose (mg/dL) Random Glucose Calcium Magnesium Total Bilirubin AST ALT Alkaline Phosphatase Ammonia 20 D Total Creatine Kinase CK-MB (Mass) Troponin I Total Protein Albumin Globulin Albumin/Globulin Ratio Procalcitonin 3.15 H Stool Occult Blood Stool Leukocytes, Qual Blood Type Antibody Screen 08/31/18 08/31/18 08/31/18 08:17 10:16 10:16 WBC 20.0 H RBC 3.30 L Hgb 9.8 L Hct 28.1 L MCV 85.2 MCH 29.8 MCHC 34.9 RDW 18.5 H Plt Count 273 MPV 9.3 Neut % (Auto) 80.0 H Lymph % (Auto) 11.0 L [place] % (Auto) 9.0 Eos % (Auto) 0.0 Baso % (Auto) 0.0 Neut # (Auto) 16.0 H Lymph # (Auto) 2.2 [place] # (Auto) 1.8 H Eos # (Auto) 0.0 Baso # (Auto) 0.0 Neutrophils % (Manual) Lymphocytes % (Manual) Monocytes % (Manual) Platelet Estimate Hypochromasia (manual) Poikilocytosis (manual Anisocytosis (manual) Target Cells PT INR APTT Sodium 143 Potassium 4.0 Chloride 111 H Carbon Dioxide 17 L Anion Gap 20 BUN 110 H* Creatinine 6.9 H Est GFR ( Amer) 9 Est GFR (Non-Af Amer) 8 POC Glucose (mg/dL) Random Glucose 103 Calcium 7.6 L Magnesium Total Bilirubin 45.5 H AST 139 H ALT 179 H Alkaline Phosphatase 287 H Ammonia Total Creatine Kinase CK-MB (Mass) Troponin I Total Protein 5.7 L Albumin 2.5 L Globulin 3.2 Albumin/Globulin Ratio 0.8 L Procalcitonin Stool Occult Blood Stool Leukocytes, Qual Blood Type O POSITIVE Antibody Screen Negative 08/31/18 08/31/18 11:48 17:37 WBC RBC Hgb Hct MCV MCH MCHC RDW Plt Count MPV Neut % (Auto) Lymph % (Auto) [place] % (Auto) Eos % (Auto) Baso % (Auto) Neut # (Auto) Lymph # (Auto) [place] # (Auto) Eos # (Auto) Baso # (Auto) Neutrophils % (Manual) Lymphocytes % (Manual) Monocytes % (Manual) Platelet Estimate Hypochromasia (manual) Poikilocytosis (manual Anisocytosis (manual) Target Cells PT 13.9 H INR 1.3 APTT 42 H D Sodium Potassium Chloride Carbon Dioxide Anion Gap BUN Creatinine Est GFR ( Amer) Est GFR (Non-Af Amer) POC Glucose (mg/dL) Random Glucose Calcium Magnesium Total Bilirubin AST ALT Alkaline Phosphatase Ammonia Total Creatine Kinase CK-MB (Mass) Troponin I Total Protein Albumin Globulin Albumin/Globulin Ratio Procalcitonin Stool Occult Blood Positive H Stool Leukocytes, Qual Blood Type Antibody Screen Attending/Attestation - Attestation I have personally seen and examined this patient.: Yes I have fully participated in the care of the patient.: Yes I have reviewed all pertinent clinical information: Yes Notes (Text): 08/31/18 18:44 Patient seen and examined 78-year-old male with obstructive jaundice was transferred to ICU for hypotension and lethargy Continue hemodialysis IV fluids [facility]
--- NOTE | 2018-08-31 20:47 | CARD ---
APPROVED REPORT Date of service: 08/31/2018 EXAM: Two-dimensional and M-mode echocardiogram with Doppler and color Doppler. Other Information Quality : GoodRhythm : INDICATION Pericardial Effusion 2D DIMENSIONS IVSd1.1 (0.7-1.1cm)LVDd3.9 (3.9-5.9cm) PWd1.2 (0.7-1.1cm)LA [id number] (18-58mL) LVDs2.2 (2.5-4.0cm)FS (%) 44.3 % LVEF (%)76.2 (>50%)LVEF (Jorge's)60.25 % M-Mode DIMENSIONS Left Atrium (MM)4.69 (2.5-4.0cm)IVSd1.11 (0.7-1.1cm) Aortic Root3.22 (2.2-3.7cm)LVDd5.42 (4.0-5.6cm) Aortic Cusp Exc.2.37 (1.5-2.0cm)PWd1.19 (0.7-1.1cm) FS (%) 33 %LVDs3.65 (2.0-3.8cm) LVEF (%)65 (>50%) Mitral Valve MV E Ajnnechu09.0cm/sE/A ratio0.0 TDI Lateral E' Peak V6.61cm/sMedial E' Peak V4.25cm/sE/Lateral E'8.2 E/Medial E'12.7 Tricuspid Valve TR Peak [id number]/sTR Peak [id number] LEFT VENTRICLE The left ventricle is normal size. There is normal left ventricular wall thickness. Left ventricle systolic function is normal. The Ejection Fraction is >70%. There is normal LV segmental wall motion. The left ventricular diastolic function is normal. No left ventricle thrombus noted on this study. RIGHT VENTRICLE The right ventricle is normal size. There is normal right ventricular wall thickness. The right ventricular systolic function is normal. ATRIA The left atrium size is normal. The right atrium size is normal. The interatrial septum is intact with no evidence for an atrial septal defect. AORTIC VALVE The aortic valve is normal in structure. No aortic regurgitation is present. There is no aortic valvular stenosis. There is no aortic valvular vegetation. MITRAL VALVE The mitral valve is normal in structure. There is no evidence of mitral valve prolapse. There is no mitral valve stenosis. Mitral regurgitation is mild. TRICUSPID VALVE The tricuspid valve is normal in structure. There is mild tricuspid regurgitation. Right ventricular systolic pressure is estimated at 30-40 mmHg. There is borderline pulmonary hypertension. PULMONIC VALVE The pulmonic valve is not well visualized. There is no pulmonic valvular regurgitation. GREAT VESSELS The aortic root is normal in size. PERICARDIAL EFFUSION There is no significant pericardial effusion. <Conclusion> Left ventricle systolic function is normal. The Ejection Fraction is >70%. No aortic regurgitation is present. Mitral regurgitation is mild. There is mild tricuspid regurgitation. There is borderline pulmonary hypertension. There is no pulmonic valvular regurgitation.
[2018-09-01] MEDS: Sodium Chloride 0.9% 1,000 ML IV SCH ×2 (00:51→06:00)
[2018-09-01] MEDS: Piperacillin/Tazobact 2.25 GM in Sodium Chloride 0.9% 50 ML IV SCH ×3 (01:45→16:16)
--- NOTE | 2018-09-01 05:49 | PN ---
DATE: 08/31/2018 LOCATION: Intensive care unit, Room 11. SUBJECTIVE: He was transferred to ICU due to significantly low blood pressure, and he received intravenous fluid. This morning, when I saw him, he was undergoing dialysis. He was sleepy; however, he was able to answer some commands, and knew me; and I told him that his sister, Deirdre, was here etc, and he feels very good, etc. While in dialysis, as expected, usually the blood pressure drops, and I spoke with Dr. Gerard, the blacksmith hammer operator, and he was receiving fluids via dialysis as well as he received some albumin, etc. Later on, after dialysis was terminated or stopped, his blood pressure began to increase slightly from the lowest 90s systolic to around 110 to 115 or so. Continue his cardiac monitoring. However, it is bothersome because this morning it was showing atrial fibrillation with slight rapid ventricular response. Yesterday, the potassium was slightly low; however, today it is about 3.9; and these electrolyte abnormalities have been corrected via dialysis. The situation remains extreme. PHYSICAL EXAMINATION: GENERAL: Obtunded, on dialysis. However, responds when you speak loudly and he opens his eyes and recognized me, etc, and then I mentioned that his sister was here, came to see him, he responded appropriately. VITAL SIGNS: As mentioned above, O2 saturation actually remains very good in the 99% to 100% range. Remains afebrile for now. SKIN: Again is deeply icteric. Rest of the physical exam basically unchanged. NECK: Jugular veins not distended. I keep mentioning this day after day. LUNGS: I could not really appreciate any gross adventitious sounds in the respiratory area; however, he was obtunded, not following commands well, and he was undergoing dialysis so did not pursue this quite well. HEART: Heart sounds irregularly irregular, about 100 or so. This is something new, atrial fibrillation. ABDOMEN: No change. Remains grossly soft. 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 COMPLEMENTARY DATA: Today, the white count has gone up to about 20,000, and he is on tigecycline 3 to 4 times a day. This is bothersome because the next big disaster will be septic shock here, which is unexpected since there was septic process here; especially with the CVA, liver failure, and complete biliary obstruction. Hemoglobin is slightly low at 9.8, etc, and nothing spectacular, and electrolytes obviously are abnormal with the severe renal failure. I had a long discussion on the telephone with the blacksmith hammer operator, and actually, he is doing everything he can. I encouraged him knowing the situation that he could receive fluids. I am now concerned of his heart function. Ventricular function is quite well and is quite good, and so he could tolerate lot of fluids. This has something to do with fluids, and eventually, it develops septic process and that would be . I looked at the echo that was done earlier this afternoon, and the echo shows total normal ventricular functions, no valvular abnormality. No pericardial effusion. Nothing as I was expecting and I was conversing with the blacksmith hammer operator, so again if he needs to give fluid, please do so. Obviously, now atrial fibrillation brings a different situation because we are going to have a loss of atrial kick. ASSESSMENT: 1. 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 2. Acute renal failure. 3. Atrial fibrillation, new onset. PLAN: At this point in time, he is on dialysis that would probably will continue until tomorrow in short timing, and once this is under control, he would be hopefully transferred to the [facility] for endoscopic ERCP with ultrasound guided. I had a very long conversation here in the ICU, sitting here by bed Mr. Garcia. She is aware of all of this that was going on, and we are in a situation that this looks extremely great and chances of recovery day after day going away. Ryne Wagoner MD
[2018-09-01 06:41] LABS: HEMOGLOBIN 9.1 g/dL (12.0-18.0); MEAN CORPUSCULAR HEMOGLOBIN 30.3 pg (27.0-31.0); MEAN CORPUSCULAR HGB CONC 35.2 g/dL (33.0-37.0); MEAN PLATELET VOLUME 9.3 fL (7.2-11.7); PLATELET COUNT 264 K/uL (130-400); RBC 2.99 Mil/uL (4.40-5.90); RED CELL DISTRIBUTION WIDTH 18.9 % (11.5-14.5); WHITE BLOOD COUNT 24.4 K/uL (4.8-10.8)
[2018-09-01 07:01] LABS: ALB/GLOB RATIO 0.8 (1.0-2.1); ALBUMIN 2.4 g/dL (3.5-5.0); CALCIUM 7.9 mg/dl (8.6-10.4)
[2018-09-01 09:04] LABS: LYMPH # 0.7 K/uL (1.0-4.3); MONO # 3.7 K/uL (0.0-0.8)
[2018-09-01 09:06] LABS: ANISOCYTOSIS SLIGHT; HYPOCHROMIC SLIGHT; LYMPHOCYTE 6 % (20-40); MONOCYTE 12 % (0-10); NEUTROPHIL 82 % (50-75); PLATELET ESTIMATE NORMAL (NORMAL); POIKILOCYTOSIS SLIGHT; TOTAL CELLS COUNTED 100
--- NOTE | 2018-09-01 09:06 | CP.PCM.PN ---
Subjective - Date & Time of Evaluation Date of Evaluation: 09/01/18 Time of Evaluation: 09:04 - Subjective Subjective: COVERING DR RODAS Patient feels tired. No pain N/V. Dialysis in progress Objective - Vital Signs/Intake and Output Vital Signs (last 24 hours): Temp Pulse Resp BP Pulse Ox 97.7 F 80 20 126/65 98 09/01/18 08:00 09/01/18 07:02 09/01/18 07:02 09/01/18 07:02 09/01/18 07:02 Intake and Output: 09/01/18 09/01/18 06:59 18:59 Intake Total 820 100 Output Total 400 Balance 420 100 - Medications Medications: Current Medications Famotidine (Pepcid) 20 mg PO DAILY [facility] Last Admin: 08/31/18 14:34 Dose: 20 mg Piperacillin Sod/Tazobactam (Sod 2.25 gm/ Sodium Chloride) 50 mls @ 100 mls/hr IV Q6H [facility]; Protocol Last Admin: 09/01/18 08:57 Dose: 100 mls/hr Sodium Chloride (Sodium Chloride 0.9%) 1,000 mls @ 50 mls/hr IV .Q20H [facility] Last Admin: 09/01/18 06:00 Dose: Not Given Oxycodone/Acetaminophen (Percocet 5/325 Mg Tab) 2 tab PO Q4H PRN PRN Reason: Pain, moderate (4-7) Stop: 09/02/18 11:43 Potassium Chloride (K-Dur 20 Meq Er Tab) 20 meq PO DAILY [facility] Last Admin: 08/31/18 14:33 Dose: 20 meq - Labs Labs: 09/01/18 06:34 09/01/18 06:35 PT 13.9 SECONDS (9.7-12.2) H 08/31/18 17:37 INR 1.3 08/31/18 17:37 APTT 42 SECONDS (21-34) H D 08/31/18 17:37 - Constitutional Appears: No Acute Distress - Eye Exam Eye Exam: Scleral icterus - Respiratory Exam Respiratory Exam: NORMAL BREATHING PATTERN - Cardiovascular Exam Cardiovascular Exam: REGULAR RHYTHM - GI/Abdominal Exam GI & Abdominal Exam: Distended, Soft, Normal Bowel Sounds. absent: Tenderness, Mass, Rebound Assessment and Plan (1) Bile duct stenosis Assessment & Plan: Awaiting stabilization for transfer to for ERCP/EUS that was planned. Prognosis guarded. Status: Acute (2) Obstructive jaundice Assessment & Plan: as above Status: Acute (3) Renal failure (ARF), acute on chronic Assessment & Plan: On hemodialysis. Status: Acute
[2018-09-01 09:08] LABS: LARGE PLATELETS PRESENT
--- NOTE | 2018-09-01 09:30 | RAD ---
Date of service: 09/01/2018 HISTORY: congestion COMPARISON: Portable chest 08/31/2018. FINDINGS: LUNGS: Right central venous dialysis catheter unchanged in position. No airspace disease identified bilaterally. Cardiomediastinal silhouette appears stable. No pulmonary congestion, pneumothorax or pleural effusion. PLEURA: As above. CARDIOVASCULAR: As above. OSSEOUS STRUCTURES: No significant abnormalities. VISUALIZED UPPER ABDOMEN: Normal. OTHER FINDINGS: None. IMPRESSION: No interval acute cardiopulmonary changes appreciable. Right center venous dialysis catheter unchanged in position.
[2018-09-01] MEDS: Potassium Chloride 20 mEq ER Tab PO SCH (10:32)
--- NOTE | 2018-09-01 13:48 | CP.PCM.PN ---
<Andi Allison - Last Filed: 09/01/18 13:45> Subjective - Date & Time of Evaluation Date of Evaluation: 09/01/18 Time of Evaluation: 13:45 - Subjective Subjective: Nephrology consult note for Dr. Gerard's service - Ryan Allison PGY3 Patient seen and examined at bedside this morning. No acute overnight events or new complaints reported. He is pending transfer for EUS/ERCP. Tolerating HD well. Presently denies chest pain, palpitations, SOB. Objective - Vital Signs/Intake and Output Vital Signs (last 24 hours): Temp Pulse Resp BP Pulse Ox 97.7 F 86 16 124/80 98 09/01/18 12:35 09/01/18 12:35 09/01/18 12:35 09/01/18 12:35 09/01/18 12:35 Intake and Output: 09/01/18 09/01/18 06:59 18:59 Intake Total 820 350 Output Total 400 Balance 420 350 - Medications Medications: Current Medications Famotidine (Pepcid) 20 mg PO DAILY [facility] Last Admin: 09/01/18 10:32 Dose: 20 mg Piperacillin Sod/Tazobactam (Sod 2.25 gm/ Sodium Chloride) 50 mls @ 100 mls/hr IV Q6H A[facility]STASIA; Protocol Last Admin: 09/01/18 08:57 Dose: 100 mls/hr Sodium Chloride (Sodium Chloride 0.9%) 1,000 mls @ 50 mls/hr IV .Q20H [facility] Last Admin: 09/01/18 06:00 Dose: Not Given Oxycodone/Acetaminophen (Percocet 5/325 Mg Tab) 2 tab PO Q4H PRN PRN Reason: Pain, moderate (4-7) Stop: 09/02/18 11:43 Potassium Chloride (K-Dur 20 Meq Er Tab) 20 meq PO DAILY [facility] Last Admin: 09/01/18 10:32 Dose: 20 meq - Labs Labs: 09/01/18 06:34 09/01/18 06:35 PT 13.9 SECONDS (9.7-12.2) H 08/31/18 17:37 INR 1.3 08/31/18 17:37 APTT 42 SECONDS (21-34) H D 08/31/18 17:37 - Constitutional Appears: Toxic, Chronically Ill - Head Exam Head Exam: ATRAUMATIC, NORMAL INSPECTION, NORMOCEPHALIC - Eye Exam Eye Exam: EOMI, Scleral icterus - ENT Exam ENT Exam: Mucous Membranes Moist - Neck Exam Neck Exam: Normal Inspection. absent: Lymphadenopathy, Tenderness, Thyromegaly - Respiratory Exam Respiratory Exam: absent: Rales, Rhonchi, Wheezes - Cardiovascular Exam Cardiovascular Exam: +S1, +S2. absent: Clicks, Gallop, Rubs - GI/Abdominal Exam GI & Abdominal Exam: Soft. absent: Distended, Firm, Guarding, Rigid, Tenderness, Rebound - Extremities Exam Extremities Exam: absent: Calf Tenderness, Tenderness - Neurological Exam Neurological Exam: Alert, Awake, Oriented x3 - Psychiatric Exam Psychiatric exam: Normal Affect, Normal Mood - Skin Skin Exam: Dry, Intact, Warm. absent: Normal Color Additional comments: jaundice Assessment and Plan - Assessment and Plan (Free Text) Plan: 78yo male no significant history presents with light colored stools, dark urine, and progressive jaundice was found to have ALPHONSO in the setting of obstructive jaundice with borderline oliguria, worsening uremia, and profound metabolic acidosis. Presently pending transfer for EUS/ERCP. 1. Acute renal failure/Uremia - Tolerating HD well with low blood flow to avoid dialysis dysequilibrium - Will cont HD daily with steady increase in blood flow - HD goal of net positive fluid balance to avoid hypotension; BP presently has been stable - Cont Mannitol with HD to maintain steady osmolality - Cont IVF as ordered - Echocardiogram reviewed; EF > 70% with mild AR, mild MR, borderline pulmonary hypertension - Cont to avoid nephrotic agents 2. Obstructive jaundice - Awaiting transfer for ERCP and EUS; obstruction correction should allow for renal recovery - Patient needs to be optimized from uremic standpoint with daily HD prior to procedure 3. Sepsis - Hypotensive, leukocytosis - Likely biliary source - Cont Zosyn, dosed for HD 4. Hypokalemia, resolved - Cont PO KCl 20 mEq daily Patient seen and case discussed/reviewed with attending, Dr. Gerard <Art Gerard - Last Filed: 09/02/18 09:02> Objective - Vital Signs/Intake and Output Vital Signs (last 24 hours): Temp Pulse Resp BP Pulse Ox 98.1 F 85 21 132/77 99 09/02/18 08:00 09/02/18 08:00 09/02/18 08:00 09/02/18 07:58 09/02/18 08:00 Intake and Output: 09/02/18 09/02/18 06:59 18:59 Intake Total 340 200 Output Total 200 Balance 140 200 - Medications Medications: Current Medications Famotidine (Pepcid) 20 mg PO DAILY [facility] Last Admin: 09/01/18 10:32 Dose: 20 mg Meropenem 500 mg/ Sodium (Chloride) 100 mls @ 100 mls/hr IVPB Q8H [facility]STASIA; Protocol Last Admin: 09/02/18 02:59 Dose: 100 mls/hr Oxycodone/Acetaminophen (Percocet 5/325 Mg Tab) 2 tab PO Q4H PRN PRN Reason: Pain, moderate (4-7) Stop: 09/02/18 11:43 Potassium Chloride (K-Dur 20 Meq Er Tab) 20 meq PO DAILY [facility] Last Admin: 09/01/18 10:32 Dose: 20 meq - Labs Labs: 09/02/18 06:35 09/02/18 06:35 PT 13.9 SECONDS (9.7-12.2) H 08/31/18 17:37 INR 1.3 08/31/18 17:37 APTT 42 SECONDS (21-34) H D 08/31/18 17:37 Assessment and Plan (1) Acute renal failure Status: Acute (2) Obstructive jaundice Status: Acute (3) Metabolic acidosis Status: Acute (4) Hypokalemia Status: Acute Attending/Attestation - Attestation I have personally seen and examined this patient.: Yes I have fully participated in the care of the patient.: Yes I have reviewed all pertinent clinical information, including history, physical exam and plan: Yes Notes (Text): Patient seen and examined; I agree with the resident's note as above with the following additions/edits: 78 yo M w/ pmh of episodic htn, admitted with obstructive jaundice and acute renal failure; Less lethargic today, able to answer questions appropriately; no shortness of breath; still not eating, poor appetite; is having some urine output per nursing staff; BM has decreased; Underwent 3rd HD session today, tolerated well; again not seeking to remove any fluid as he had been hypotensive yesterday (although much more stable today), just dialyzing for clearance; acidosis improving slowly; keeping on higher potassium dialysate to avoid provoking arrhythmias (has been in afib and previously hypokalemic); Still with pronounced leukocytosis, on zosyn, should continue to dose abx for HD; blood cultures negative to date;
--- NOTE | 2018-09-01 18:03 | CP.PCM.CON ---
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 Med: denies All: Denies SH: former smoker, quit 46 years ago and 10 pack years prior, drinking 1 cup wine during dinner, denies any recreational drugs FH: Father with DM Review of Systems - Review of Systems All systems: reviewed and no additional remarkable complaints except - Constitutional Constitutional: As Per HPI - EENT Eyes: As Per HPI Ears: absent: As Per HPI, Decreased Hearing, Ear Discharge, Ear Pain, Tinnitus, Abnormal Hearing, Disequilibrium, Dizziness, Other Nose/Mouth/Throat: absent: As Per HPI, Epistaxis, Nasal Congestion, Nasal Discharge, Nasal Obstruction, Nasal Trauma, Nose Pain, Post Nasal Drip, Sinus Pain, Sinus Pressure, Bleeding Gums, Change in Voice, Dental Pain, Dry Mouth, Dysphagia, Halitosis, Hoarsness, Lip Swelling, Mouth Lesions, Mouth Pain, Odynophagia, Sore Throat, Throat Swelling, Tongue Swelling, Facial Pain, Neck Pain, Neck Mass, Other - Cardiovascular Cardiovascular: absent: As Per HPI, Acrocyanosis, Chest Pain, Chest Pain at Rest, Chest Pain with Activity, Claudication, Diaphoresis, Dyspnea, Dyspnea on E xertion, Edema, Irregular Heart Rhythm, Pain Radiating to Arm/Neck/Jaw, Leg Edema, Leg Ulcers, Lightheadedness, Orthopnea, Palpitations, Paroxysmal Nocturnal Dyspnea, Pedal Edema, Radiating Pain, Rapid Heart Rate, Slow Heart Rate, Syncope, Other - Respiratory Respiratory: absent: As Per HPI, Cough, Dyspnea, Hemoptysis, Dyspnea on Exertion, Wheezing, Snoring, Stridor, Pain on Inspiration, Chest Congestion, Excessive Mucous Production, Change in Mucous Color, Pain with Coughing, Other - Gastrointestinal Gastrointestinal: As Per HPI - Genitourinary Genitourinary: absent: As Per HPI, Change in Urinary Stream, Difficulty Urinating, Dysuria, Flank Pain, Hematuria, Pyuria, Nocturia, Urinary Incontinence, Urinary Frequency, Urinary Hesitance, Urinary Urgency, Voiding Freq/Small Amts, Freq UTI, Hx Renal/Bladder Calculi, Hx /Renal Surgery, Bladder Distension, Other - Musculoskeletal Musculoskeletal: absent: As Per HPI, Abnormal Gait, Arthralgias, Atrophy, Back Pain, Deformity, Joint Swelling, Limited Range of Motion, Loss of Height, Muscle Cramps, Muscle Weakness, Myalgias, Neck Pain, Numbness, Radiating Pain into Limb, Stiffness, Tingling, Other - Integumentary Integumentary: absent: As Per HPI, Acne, Alopecia, Bleeding Lesions, Change in Hair, Change in Nails, Change in Pigmentation, Changing Lesions, Dry Skin, Erythema, Furuncle, Hirsutism, Lesions, New Lesions, Non-Healing Lesions, Phot osensitivity, Pruritus, Rash, Skin Pain, Skin Ulcer, Sores, Striae, Swelling, Unusual Bruising, Wounds, Jaundice, Other - Neurological Neurological: absent: As Per HPI, Abnormal Gait, Abnormal Hearing, Abnormal Movements, Abnormal Speech, Behavioral Changes, Burning Sensations, Confusion, Convulsions, Disequilibrium, Dizziness, Numbness, Focal Weakness, Frequent Falls, Headaches, Lack of Coordination, Loss of Vision, Memory Loss, Paresthesias, Radicular Pain, Restless Legs, Sensory Deficit, Syncope, Tingling, Tremor, Vertigo, Weakness, Other Visual Disturbances, Other - Psychiatric Psychiatric: absent: As Per HPI, Abnormal Sleep Pattern, Anhedonia, Anxiety, Auditory Hallucinations, Behavioral Changes, Change in Appetite, Change in Libido, Confusion, Depression, Difficulty Concentrating, Hallucinations, Homicidal Ideation, Hopelessness, Irritability, Memory Loss, Mood Swings, Panic Attacks, Paranoia, Suicidal Ideation, Visual Hallucinations, Tactile Hallucinations, Other - Endocrine Endocrine: absent: As Per HPI, Change in Body Appearance, Change in Libido, Cold Intolorance, Deepening of Voice, Excessive Sweating, Fatigue, Flushing, Heat Intolorance, Increase in Ring/Shoe/Hat Size, Palpitations, Polydipsia, Polyphagia, Polyuria, Other - Hematologic/Lymphatic Hematologic: absent: As Per HPI, Easy Bleeding, Easy Bruising, Lymphadenopathy, Other Past Patient History - Past Medical History & Family History Past Medical History?: Yes - Past Social History Smoking Status: Former Smoker - CARDIAC Hx Hypertension: Yes (Borderline HTN, not on meds) - PULMONARY Hx Respiratory Disorders: No - NEUROLOGICAL Hx Neurological Disorder: No - HEENT Hx HEENT Problems: Yes Other/Comment: 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 - RENAL Hx Chronic Kidney Disease: No - ENDOCRINE/METABOLIC Hx Endocrine Disorders: No - HEMATOLOGICAL/ONCOLOGICAL Hx Blood Disorders: No - INTEGUMENTARY Hx Dermatological Problems: Yes Hx Basil Cell: Yes (Nose) Other/Comment: Left parotid nodule - MUSCULOSKELETAL/RHEUMATOLOGICAL Hx Musculoskeletal Disorders: No - GASTROINTESTINAL Hx Gastrointestinal Disorders: Yes Hx Hemorrhoids: Yes - GENITOURINARY/GYNECOLOGICAL Hx Genitourinary Disorders: No - PSYCHIATRIC Hx Psychophysiologic Disorder: No Hx Substance Use: No - SURGICAL HISTORY Hx Tonsillectomy: Yes - ANESTHESIA Hx Anesthesia: Yes Hx Anesthesia Reactions: No Hx Malignant Hyperthermia: No Has any member of the family had a problem w/ anesthesia?: No Meds Allergies/Adverse Reactions: Allergies Allergy/AdvReac Type Severity Reaction Status Date / Time No Known Allergies Allergy Verified 08/26/18 12:30 - Medications Medications: Current Medications Famotidine (Pepcid) 20 mg PO DAILY REPLACED BY [facility] Last Admin: 09/01/18 10:32 Dose: 20 mg Sodium Chloride (Sodium Chloride 0.9%) 1,000 mls @ 50 mls/hr IV .Q20H REPLACED BY [facility] Last Admin: 09/01/18 06:00 Dose: Not Given Piperacillin Sod/Tazobactam Sod (Zosyn 2.25 Gm Iv Premix) 2.25 gm in 50 mls @ 100 mls/hr IVPB Q6H REPLACED BY [facility]; Protocol Oxycodone/Acetaminophen (Percocet 5/325 Mg Tab) 2 tab PO Q4H PRN PRN Reason: Pain, moderate (4-7) Stop: 09/02/18 11:43 Potassium Chloride (K-Dur 20 Meq Er Tab) 20 meq PO DAILY REPLACED BY [facility] Last Admin: 09/01/18 10:32 Dose: 20 meq Physical Exam - Constitutional Appears: No Acute Distress, Cachectic, Chronically Ill - Head Exam Head Exam: ATRAUMATIC, NORMAL INSPECTION, NORMOCEPHALIC - Eye Exam Eye Exam: EOMI, PERRL, Scleral icterus - ENT Exam ENT Exam: Mucous Membranes Dry, Normal External Ear Exam - Neck Exam Neck exam: Negative for: Lymphadenopathy - Respiratory Exam Respiratory Exam: Decreased Breath Sounds, Rhonchi - Cardiovascular Exam Cardiovascular Exam: REGULAR RHYTHM, +S1, +S2 - GI/Abdominal Exam GI & Abdominal Exam: Diminished Bowel Sounds, Soft. absent: Tenderness - Rectal Exam Rectal Exam: Deferred - Exam Exam: NORMAL INSPECTION - Extremities Exam Extremities exam: Positive for: pedal edema, pedal pulses present. Negative for: calf tenderness, tenderness - Back Exam Back exam: absent: CVA tenderness (L), CVA tenderness (R) - Neurological Exam Neurological exam: Alert, CN II-XII Intact, Oriented x3, Reflexes Normal - Psychiatric Exam Psychiatric exam: Depressed - Skin Skin Exam: Dry Results - Vital Signs Recent Vital Signs: Last Vital Signs Temp 97.7 F 09/01/18 12:35 Pulse 83 09/01/18 16:00 Resp 17 09/01/18 16:00 BP 153/81 H 09/01/18 15:44 Pulse Ox 96 09/01/18 16:00 - Labs Result Diagrams: 09/01/18 06:34 09/01/18 06:35 Labs: Laboratory Results - last 24 hr 09/01/18 09/01/18 09/01/18 06:34 06:35 07:27 WBC 24.4 H RBC 2.99 L Hgb 9.1 L Hct 25.7 L MCV 86.0 MCH 30.3 MCHC 35.2 RDW 18.9 H Plt Count 264 MPV 9.3 Neut % (Auto) 82.0 H Lymph % (Auto) 3.0 L [place] % (Auto) 15.0 H Eos % (Auto) 0.0 Baso % (Auto) 0.0 Neut # (Auto) 20.0 H Lymph # (Auto) 0.7 L [place] # (Auto) 3.7 H Eos # (Auto) 0.0 Baso # (Auto) 0.0 Neutrophils % (Manual) 82 H Lymphocytes % (Manual) 6 L Monocytes % (Manual) 12 H Platelet Estimate Normal Large Platelets Present Hypochromasia (manual) Slight Poikilocytosis (manual Slight Anisocytosis (manual) Slight Sodium 143 Potassium 4.0 Chloride 110 H Carbon Dioxide 18 L Anion Gap 19 BUN 81 H Creatinine 5.3 H Est GFR ( Amer) 13 Est GFR (Non-Af Amer) 11 Random Glucose 99 Calcium 7.9 L Phosphorus 5.0 H Magnesium 2.2 Total Bilirubin 46.2 H AST 154 H ALT 180 H Alkaline Phosphatase 273 H Ammonia Total Protein 5.6 L Albumin 2.4 L Globulin 3.1 Albumin/Globulin Ratio 0.8 L Stool Occult Blood 09/01/18 10:09 WBC RBC Hgb Hct MCV MCH MCHC RDW Plt Count MPV Neut % (Auto) Lymph % (Auto) [place] % (Auto) Eos % (Auto) Baso % (Auto) Neut # (Auto) Lymph # (Auto) [place] # (Auto) Eos # (Auto) Baso # (Auto) Neutrophils % (Manual) Lymphocytes % (Manual) Monocytes % (Manual) Platelet Estimate Large Platelets Hypochromasia (manual) Poikilocytosis (manual Anisocytosis (manual) Sodium Potassium Chloride Carbon Dioxide Anion Gap BUN Creatinine Est GFR ( Amer) Est GFR (Non-Af Amer) Random Glucose Calcium Phosphorus Magnesium Total Bilirubin AST ALT Alkaline Phosphatase Ammonia 22 Total Protein Albumin Globulin Albumin/Globulin Ratio Stool Occult Blood Assessment & Plan (1) Acute renal failure Status: Acute (2) Bile duct stenosis Status: Acute (3) Elevated bilirubin Status: Acute (4) Hypokalemia Status: Acute (5) Icterus Status: Acute (6) Metabolic acidosis Status: Acute (7) Obstructive jaundice Status: Acute (8) Renal failure (ARF), acute on chronic Status: Acute - Assessment and Plan (Free Text) Assessment: ascending cholangitis sepsis ARF biliary stenosis cont IV rx , antibiotics, HD
[2018-09-01] MEDS ORDERED: Meropenem 1 GM in Sodium Chloride 0.9% 100 ML IVPB ONE (18:08)
--- NOTE | 2018-09-01 18:30 | CP.CCUPN ---
CCU Subjective - Physician Review Events Since Last Encounter (Free Text): 09/01/18 18:28 No acute events overnight Subjective (Free Text): 09/01/18 18:28 PGY1 Critical Care Progress Note for Dr. Baum Patient seen at bedside this morning. Patient denies pain, shortness of breath, nausea, vomiting, diarrhea, fever, chills, and/or pain. Patient is pending transfer to [facility]. CCU Objective - Vital Signs / Intake & Output Vital Signs (Last 4 hours): Vital Signs Pulse Resp BP Pulse Ox 09/01/18 16:00 83 17 96 09/01/18 15:44 83 19 153/81 H 99 09/01/18 15:00 84 13 96 09/01/18 14:44 83 17 138/81 97 Intake and Output (Last 8hrs): Intake & Output 09/01/18 09/01/18 09/01/18 06:59 14:59 22:59 Intake Total 520 350 200 Output Total 400 Balance 120 350 200 Weight 228 lb 8 oz Intake: Intake, IV Amount 400 350 200 Left Forearm 400 350 200 Oral 120 0 Output: Urine 400 Urine, Voided 400 Other: # Voids Urine, Voided 0 0 # Bowel Movements 0 - Physical Exam Head: Positive for: Atraumatic, Normocephalic Pupils: Positive for: PERRL Extroacular Muscles: Positive for: EOMI Conjunctiva: Positive for: Icteric Respiratory/Chest: Positive for: Clear to Auscultation Cardiovascular: Positive for: Normal S1, S2 - Medications Active Medications: Active Medications Generic Name Dose Route Start Last Admin Trade Name Freq PRN Reason Stop Dose Admin Famotidine 20 mg 08/31/18 10:00 09/01/18 10:32 Pepcid PO 20 mg DAILY ANASTASIA Administration Sodium Chloride 1,000 mls @ 50 mls/hr 08/29/18 18:00 09/01/18 06:00 Sodium Chloride 0.9% IV Not Given .Q20H ANASTASIA Meropenem 1 gm/ Sodium 100 mls @ 100 mls/hr 09/01/18 18:08 Chloride IVPB 09/01/18 19:07 ONCE ONE Protocol Meropenem 500 mg/ Sodium 100 mls @ 100 mls/hr 09/02/18 02:00 Chloride IVPB Q8H ANASTASIA Protocol Oxycodone/Acetaminophen 2 tab 08/30/18 11:42 Percocet 5/325 Mg Tab PO 09/02/18 11:43 Q4H PRN Pain, moderate (4-7) Potassium Chloride 20 meq 08/28/18 12:45 09/01/18 10:32 K-Dur 20 Meq Er Tab PO 20 meq DAILY ANASTASIA Administration - Patient Studies Lab Studies: Microbiology Studies 08/31/18 09:24 MRSA Culture (Admit) - Final Naris MRSA NOT DETECTED 08/31/18 14:13 MRSA Culture (Admit) - Final Naris MRSA NOT DETECTED 08/31/18 10:16 Blood Culture - Preliminary Blood NO GROWTH AFTER 24 HOURS 08/31/18 10:16 Blood Culture - Preliminary Blood NO GROWTH AFTER 24 HOURS 08/29/18 08:24 Blood Culture - Preliminary Blood-Venous NO GROWTH AFTER 3 DAYS 08/29/18 06:45 Blood Culture - Preliminary Blood-Venous NO GROWTH AFTER 3 DAYS Lab Studies 09/01/18 09/01/18 09/01/18 Range/Units 10:09 07:27 06:35 WBC (4.8-10.8) K/uL RBC (4.40-5.90) Mil/uL Hgb (12.0-18.0) g/dL Hct (35.0-51.0) % MCV (80.0-94.0) fL MCH (27.0-31.0) pg MCHC (33.0-37.0) g/dL RDW (11.5-14.5) % Plt Count (130-400) K/uL MPV (7.2-11.7) fL Neut % (Auto) (50.0-75.0) % Lymph % (Auto) (20.0-40.0) % Sequoyah % (Auto) (0.0-10.0) % Eos % (Auto) (0.0-4.0) % Baso % (Auto) (0.0-2.0) % Neut # (Auto) (1.8-7.0) K/uL Lymph # (Auto) (1.0-4.3) K/uL Sequoyah # (Auto) (0.0-0.8) K/uL Eos # (Auto) (0.0-0.7) K/uL Baso # (Auto) (0.0-0.2) K/uL Neutrophils % (Manual) (50-75) % Lymphocytes % (Manual) (20-40) % Monocytes % (Manual) (0-10) % Platelet Estimate (NORMAL) Large Platelets Hypochromasia (manual) Poikilocytosis (manual Anisocytosis (manual) Sodium 143 (132-148) mmol/L Potassium 4.0 (3.6-5.2) mmol/L Chloride 110 H (98-107) mmol/L Carbon Dioxide 18 L (22-30) mmol/L Anion Gap 19 (10-20) BUN 81 H (9-20) mg/dL Creatinine 5.3 H (0.8-1.5) mg/dL Est GFR ( Amer) 13 Est GFR (Non-Af Amer) 11 Random Glucose 99 (75-110) mg/dL Calcium 7.9 L (8.6-10.4) mg/dl Phosphorus 5.0 H (2.5-4.5) mg/dL Magnesium 2.2 (1.6-2.3) mg/dL Total Bilirubin 46.2 H (0.2-1.3) mg/dL AST 154 H (17-59) U/L ALT 180 H (21-72) U/L Alkaline Phosphatase 273 H (38-126) U/L Ammonia 22 (9-33) umol/L Total Protein 5.6 L (6.3-8.3) g/dL Albumin 2.4 L (3.5-5.0) g/dL Globulin 3.1 (2.2-3.9) gm/dL Albumin/Globulin Ratio 0.8 L (1.0-2.1) Stool Occult Blood (NEGATIVE) 09/01/18 Range/Units 06:34 WBC 24.4 H (4.8-10.8) K/uL RBC 2.99 L (4.40-5.90) Mil/uL Hgb 9.1 L (12.0-18.0) g/dL Hct 25.7 L (35.0-51.0) % MCV 86.0 (80.0-94.0) fL MCH 30.3 (27.0-31.0) pg MCHC 35.2 (33.0-37.0) g/dL RDW 18.9 H (11.5-14.5) % Plt Count 264 (130-400) K/uL MPV 9.3 (7.2-11.7) fL Neut % (Auto) 82.0 H (50.0-75.0) % Lymph % (Auto) 3.0 L (20.0-40.0) % Sequoyah % (Auto) 15.0 H (0.0-10.0) % Eos % (Auto) 0.0 (0.0-4.0) % Baso % (Auto) 0.0 (0.0-2.0) % Neut # (Auto) 20.0 H (1.8-7.0) K/uL Lymph # (Auto) 0.7 L (1.0-4.3) K/uL Sequoyah # (Auto) 3.7 H (0.0-0.8) K/uL Eos # (Auto) 0.0 (0.0-0.7) K/uL Baso # (Auto) 0.0 (0.0-0.2) K/uL Neutrophils % (Manual) 82 H (50-75) % Lymphocytes % (Manual) 6 L (20-40) % Monocytes % (Manual) 12 H (0-10) % Platelet Estimate Normal (NORMAL) Large Platelets Present Hypochromasia (manual) Slight Poikilocytosis (manual Slight Anisocytosis (manual) Slight Sodium (132-148) mmol/L Potassium (3.6-5.2) mmol/L Chloride (98-107) mmol/L Carbon Dioxide (22-30) mmol/L Anion Gap (10-20) BUN (9-20) mg/dL Creatinine (0.8-1.5) mg/dL Est GFR ( Amer) Est GFR (Non-Af Amer) Random Glucose (75-110) mg/dL Calcium (8.6-10.4) mg/dl Phosphorus (2.5-4.5) mg/dL Magnesium (1.6-2.3) mg/dL Total Bilirubin (0.2-1.3) mg/dL AST (17-59) U/L ALT (21-72) U/L Alkaline Phosphatase (38-126) U/L Ammonia (9-33) umol/L Total Protein (6.3-8.3) g/dL Albumin (3.5-5.0) g/dL Globulin (2.2-3.9) gm/dL Albumin/Globulin Ratio (1.0-2.1) Stool Occult Blood (NEGATIVE) Laboratory Results - last 24 hr 09/01/18 09/01/18 09/01/18 06:34 06:35 07:27 WBC 24.4 H RBC 2.99 L Hgb 9.1 L Hct 25.7 L MCV 86.0 MCH 30.3 MCHC 35.2 RDW 18.9 H Plt Count 264 MPV 9.3 Neut % (Auto) 82.0 H Lymph % (Auto) 3.0 L Sequoyah % (Auto) 15.0 H Eos % (Auto) 0.0 Baso % (Auto) 0.0 Neut # (Auto) 20.0 H Lymph # (Auto) 0.7 L Sequoyah # (Auto) 3.7 H Eos # (Auto) 0.0 Baso # (Auto) 0.0 Neutrophils % (Manual) 82 H Lymphocytes % (Manual) 6 L Monocytes % (Manual) 12 H Platelet Estimate Normal Large Platelets Present Hypochromasia (manual) Slight Poikilocytosis (manual Slight Anisocytosis (manual) Slight Sodium 143 Potassium 4.0 Chloride 110 H Carbon Dioxide 18 L Anion Gap 19 BUN 81 H Creatinine 5.3 H Est GFR ( Amer) 13 Est GFR (Non-Af Amer) 11 Random Glucose 99 Calcium 7.9 L Phosphorus 5.0 H Magnesium 2.2 Total Bilirubin 46.2 H AST 154 H ALT 180 H Alkaline Phosphatase 273 H Ammonia Total Protein 5.6 L Albumin 2.4 L Globulin 3.1 Albumin/Globulin Ratio 0.8 L Stool Occult Blood 09/01/18 10:09 WBC RBC Hgb Hct MCV MCH MCHC RDW Plt Count MPV Neut % (Auto) Lymph % (Auto) Sequoyah % (Auto) Eos % (Auto) Baso % (Auto) Neut # (Auto) Lymph # (Auto) Sequoyah # (Auto) Eos # (Auto) Baso # (Auto) Neutrophils % (Manual) Lymphocytes % (Manual) Monocytes % (Manual) Platelet Estimate Large Platelets Hypochromasia (manual) Poikilocytosis (manual Anisocytosis (manual) Sodium Potassium Chloride Carbon Dioxide Anion Gap BUN Creatinine Est GFR ( Amer) Est GFR (Non-Af Amer) Random Glucose Calcium Phosphorus Magnesium Total Bilirubin AST ALT Alkaline Phosphatase Ammonia 22 Total Protein Albumin Globulin Albumin/Globulin Ratio Stool Occult Blood Review of Systems - Review of Systems All systems: reviewed and no additional remarkable complaints except - EENT Eyes: As Per HPI Ears: As Per HPI Nose/Mouth/Throat: As Per HPI - Cardiovascular Cardiovascular: As Per HPI - Respiratory Respiratory: As Per HPI - Gastrointestinal Gastrointestinal: As Per HPI - Genitourinary Genitourinary: As Per HPI - Neurological Neurological: As Per HPI Critical Care Progress Note - Nutrition Nutrition: Nutrition Category Date Time Status Renal Diet [DIET] Diets 08/30/18 Lunch Active Assessment/Plan - Assessment and Plan (Free Text) Assessment: Patient is a 78-year-old male with PMH of HTN who was sent to the hospital by his PMD (Dr. Wagoner) on 08/26 for chief complaint of light colored stools, dark urine, and progressive jaundrice. ERCP was reocmmended due to new onset jaundice. Patient was initially admitted to the floor. Of note, was found to be in ALPHONSO; uremic syndome, likely secondary to above. Patient required hemodialysis (first time) and is status-post permacath insertion by Dr. Crane. During dialysis, patient became hypotensive likely due to hypovolemia and was treated with IVF. Utilities Operator (Dr. Almendarez consulted). ECHO was obtained. Report pending. SEM MANAGER was called this morning at 08/31/18 for hypotension during dialysis . Albumin was administered on the floor. Patient currently downgraded to Telemetry for monitoring and is pending transfer to [facility]. Plan: Renal: - Acute renal failure/Uremia - HD started 08/30 with low blood flow to avoid dialysis dysequilibrium - Will cont HD daily with steady increase in blood flow - SEM MANAGER called due to hypotension today; HD goal of net positive fluid balance to avoid further hypotension - Cont Mannitol with HD to maintain steady osmolality - Cont IVF with total 100 cc/hr - Discontinued bicarb drip - ECHO obtained, will follow-up on official read (rule out uremic pericardial effusion) - Avoid nephrotoxic agents - Hypokalemia; Cont PO KCl 20 mEq daily - Daily CMP, mag, phos CV: - ECHO obtained, report pending - Dr. Crane consulted for HD cath; placed. - CXR 08/31: No significant interval change (mild venous congestion, blunted left costophrenic angle suggestive for trace effusion, Enlarged ectatic aorta. Cardiomegaly. Aortic atherosclerotic calcification present.) - Monitor Resp: - No acute issues - ECHO obtained, report pending - CXR 09/01: No significant interval change (mild venous congestion, blunted left costophrenic angle suggestive for trace effusion) GI: - Obstructive jaundice - Awaiting transfer for ERCP and EUS; obstruction correction should allow for renal recovery - Patient needs to be optimized from uremic standpoint with daily HD prior to procedure - GI consulted (Dr. Vides) - pending giardia Ag, EIA, Stool - Renal diet ID: - Dr. Tabares consulted; rec. appreciated * Meropenem Q8 started - Hypotensive, leukocytosis - Likely biliary source - Cont Zosyn, dosed for HD - Continue with gentle hydration (NS @50cc/hr) - Daily CBC Heme: - PTT elevated - Monitor H/H - Monitor Coag panel - Daily CBC with diff Neuro: - No acute issues - A&Ox4 PPx: SCD contraindicated due to lower extremity edema. GI: pepcid 20mg PO daily Patient seen and case discussed in detail with Dr. Bautista Ontiveros, PGY1
[2018-09-01] MEDS ORDERED: Piperacill/Tazo 2.25gm in Dex 2.25 GM/50 ML BAG IVPB SCH (22:00)
--- NOTE | 2018-09-01 23:23 | PN ---
DATE: 09/01/2018 SUBJECTIVE: Appears more alert, energetic. The sister, Hortensia and [id number], Reyes are here at the bedside. Able to verbalize better. Talking brief sentence. He is very tired still. He denies any shortness of breath. He is not eating at all. He underwent hemodialysis early this morning the third time short time, able to tolerate that dialysis much better. REVIEW OF SYSTEMS: He denies any chest pain or shortness of breath. Rest of the review of systems otherwise negative. PHYSICAL EXAMINATION GENERAL: Alert, tired, appears in no distress whatsoever. VITAL SIGNS: At this point in time are stable with the blood pressure in the range of about 140 over 70 to 80, now continuous cardiac monitoring shows sinus rhythm. Yesterday, he had a transient paroxysmal atrial fibrillation for several hours that reverted to sinus once the blood pressure began to climb up. He got some fluids and the electrolytes had been actually adjusted properly with the potassium now in the normal range. Actually, he was hypokalemic a few days ago. Respiratory rate is unremarkable at this point. O2 saturation is normal. The rest of the physical exam is pretty much unchanged. HEENT: Deep icterus. NECK: Jugular vein is not distended. LUNGS: Totally clear to auscultation. CARDIAC: Jugular vein is flat. Precordium is unremarkable. Heart sounds regular and normal in intensity without any significant murmur. ABDOMEN: Soft. No gross organomegaly. CENTRAL NERVOUS SYSTEM: Appears alert. Responds appropriately, especially when I mentioned to him to be sure that he has to get better and be home before 09/14/2018, and he smiled and he nodded, he said yes because he knows that is the election date. COMPLEMENTARY DATA: Laboratory analysis today includes WBC count that keeps getting higher and higher and this is the issue that is bothering me a great deal with WBC count about 24,000, has been steadily going up, yesterday was 20,000 and now 24,000. Hemoglobin is hanging around 9. Platelets are normal. Electrolytes, bicarbonate is steadily going up with hemodialysis as well as now from the low point of 12, now in the range of 18, the carbon dioxide. Potassium is normal at 4.0, yesterday it was also 4.0. Except for one or two days, the potassium was in the low range that has been normalized. The chest x-ray early this morning again shows no acute cardiopulmonary pathology. Lungs are fairly clear. This is a portable technique and the hemodialysis catheter is in the . No pneumothorax. ASSESSMENT: 1. 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 2. Hypertension by history. 3. Acute renal failure. CONCLUSION: Presently, hemodynamically stable and appears improving metabolic charles. White count is going in the wrong direction. It keeps going up and up, although he is on ticarcillin four times a day, 2.25 g every 6 hours. I got another phone call today from the [facility], and they already are aware that he was downgraded to telemetry this morning and they are looking to get a bed. As soon as this is done, he will be transferred to the GI group with Dr. CARLIN. Again, I had a very long conversation with the sister, Hortensia Kearney and her , Reyes. They are very well aware of the situations. Ryne Wagoner MD
--- NOTE | 2018-09-01 23:53 | CARD ---
APPROVED REPORT Date of service: 08/30/2018 EKG Measurement Heart [id number] <Conclusion> Atrial fibrillation with rapid ventricular response Left axis deviation Septal infarct, age undetermined Possible Lateral infarct, age undetermined Abnormal ECG
[2018-09-02] MEDS: Meropenem 500 MG in Sodium Chloride 0.9% 100 ML IVPB SCH ×2 (02:59→09:12)
[2018-09-02 06:59] LABS: HEMOGLOBIN 8.3 g/dL (12.0-18.0); MEAN CELL VOLUME 85.3 fL (80.0-94.0); MEAN CORPUSCULAR HEMOGLOBIN 30.4 pg (27.0-31.0); MEAN CORPUSCULAR HGB CONC 35.6 g/dL (33.0-37.0); PLATELET COUNT 260 K/uL (130-400); RBC 2.72 Mil/uL (4.40-5.90); RED CELL DISTRIBUTION WIDTH 18.6 % (11.5-14.5); WHITE BLOOD COUNT 23.8 K/uL (4.8-10.8)
[2018-09-02 07:08] LABS: ALB/GLOB RATIO 0.8 (1.0-2.1); ALBUMIN 2.3 g/dL (3.5-5.0); CALCIUM 7.6 mg/dl (8.6-10.4)
[2018-09-02] MEDS: Potassium Chloride 20 mEq ER Tab PO SCH (09:12)
[2018-09-02 09:16] LABS: BASO # 0.5 K/uL (0.0-0.2); EOS # 0.2 K/uL (0.0-0.7); LYMPH # 0.7 K/uL (1.0-4.3); MONO # 1.9 K/uL (0.0-0.8)
[2018-09-02 09:18] LABS: ANISOCYTOSIS SLIGHT; HYPOCHROMIC SLIGHT; LYMPHOCYTE 3 % (20-40); MONOCYTE 7 % (0-10); NEUTROPHIL 88 % (50-75); PLATELET ESTIMATE NORMAL (NORMAL); POIKILOCYTOSIS SLIGHT; TOTAL CELLS COUNTED 100
--- NOTE | 2018-09-02 09:31 | CP.PCM.PN ---
Subjective - Date & Time of Evaluation Date of Evaluation: 09/02/18 Time of Evaluation: 09:22 - Subjective Subjective: Nephrology Progress Note for Dr Gerard Patient seen and examined at bedside. No acute overnight events. Patient states that he feels fatigued. Patient tolerated HD well. Patient denies CP, SOB, fever, chills, COWART or dizziness. Objective - Vital Signs/Intake and Output Vital Signs (last 24 hours): Temp Pulse Resp BP Pulse Ox 98.1 F 85 21 132/77 99 09/02/18 08:00 09/02/18 08:00 09/02/18 08:00 09/02/18 07:58 09/02/18 08:00 Intake and Output: 09/02/18 09/02/18 06:59 18:59 Intake Total 340 200 Output Total 200 Balance 140 200 - Medications Medications: Current Medications Famotidine (Pepcid) 20 mg PO DAILY ANASTASIA Last Admin: 09/02/18 09:12 Dose: 20 mg Meropenem 500 mg/ Sodium (Chloride) 100 mls @ 100 mls/hr IVPB Q8H ANASTASIA; Protocol Last Admin: 09/02/18 09:12 Dose: 100 mls/hr Oxycodone/Acetaminophen (Percocet 5/325 Mg Tab) 2 tab PO Q4H PRN PRN Reason: Pain, moderate (4-7) Stop: 09/02/18 11:43 Potassium Chloride (K-Dur 20 Meq Er Tab) 20 meq PO DAILY ANASTASIA Last Admin: 09/02/18 09:12 Dose: 20 meq - Labs Labs: 09/02/18 06:35 09/02/18 06:35 PT 13.9 SECONDS (9.7-12.2) H 08/31/18 17:37 INR 1.3 08/31/18 17:37 APTT 42 SECONDS (21-34) H D 08/31/18 17:37 - Constitutional Appears: Toxic, No Acute Distress - Head Exam Head Exam: NORMAL INSPECTION - Eye Exam Eye Exam: PERRL, Scleral icterus - ENT Exam ENT Exam: Mucous Membranes Moist - Respiratory Exam Respiratory Exam: Clear to Ausculation Bilateral. absent: Rales, Rhonchi, Wheezes - Cardiovascular Exam Cardiovascular Exam: RRR, +S1, +S2. absent: Gallop, Rubs, Murmur - GI/Abdominal Exam GI & Abdominal Exam: Soft. absent: Distended, Guarding, Tenderness, Rebound - Extremities Exam Extremities Exam: Normal Inspection - Back Exam Back Exam: NORMAL INSPECTION - Neurological Exam Neurological Exam: Alert, Awake - Psychiatric Exam Psychiatric exam: Normal Affect, Normal Mood - Skin Skin Exam: Dry, Intact, Warm. absent: Normal Color (Jaundice) Assessment and Plan - Assessment and Plan (Free Text) Assessment: 78yo male no significant history presents with light colored stools, dark urine, and progressive jaundice was found to have ALPHONSO in the setting of obstructive jaundice with borderline oliguria, worsening uremia, and profound metabolic acidosis. Presently pending transfer for EUS/ERCP. Plan: 1. Acute renal failure/Uremia - Tolerating HD well with low blood flow to avoid dialysis dysequilibrium - Will cont HD daily with steady increase in blood flow - HD goal of net positive fluid balance to avoid hypotension; BP presently has been stable - Cont Mannitol with HD to maintain steady osmolality - Cont IVF as ordered - Echocardiogram reviewed; EF > 70% with mild AR, mild MR, borderline pulmonary hypertension - Cont to avoid nephrotic agents 2. Obstructive jaundice - Awaiting transfer for ERCP and EUS; obstruction correction should allow for renal recovery - Patient needs to be optimized from uremic standpoint with daily HD prior to procedure 3. Sepsis 2/2 ascending cholangitis - Awaiting transfer for ERCP/EUS - Cont Merrem - ID and GI following 4. Hypokalemia, resolved - Cont PO KCl 20 mEq daily Patient seen and case discussed/reviewed with attending, Dr. Gerard. Aquiles Hope DO PGY2
--- NOTE | 2018-09-02 10:41 | CP.PCM.PN ---
Subjective - Date & Time of Evaluation Date of Evaluation: 09/02/18 Time of Evaluation: 10:38 - Subjective Subjective: COVERING DR RODAS No new complaints. WBC remains elevated. ID consultation noted and appreciated. Remains obstructed in absence of transfer for biliary stenting and EUS. Arrangements made to transfer to by transfer on hold based on dialysis delay. Objective - Vital Signs/Intake and Output Vital Signs (last 24 hours): Temp Pulse Resp BP Pulse Ox 98.1 F 86 21 132/77 100 09/02/18 08:00 09/02/18 10:00 09/02/18 10:00 09/02/18 07:58 09/02/18 10:00 Intake and Output: 09/02/18 09/02/18 06:59 18:59 Intake Total 340 200 Output Total 200 Balance 140 200 - Medications Medications: Current Medications Famotidine (Pepcid) 20 mg PO DAILY ANASTASIA Last Admin: 09/02/18 09:12 Dose: 20 mg Meropenem 500 mg/ Sodium (Chloride) 100 mls @ 100 mls/hr IVPB Q8H ANASTASIA; Protocol Last Admin: 09/02/18 09:12 Dose: 100 mls/hr Oxycodone/Acetaminophen (Percocet 5/325 Mg Tab) 2 tab PO Q4H PRN PRN Reason: Pain, moderate (4-7) Stop: 09/02/18 11:43 Potassium Chloride (K-Dur 20 Meq Er Tab) 20 meq PO DAILY ANASTASIA Last Admin: 09/02/18 09:12 Dose: 20 meq - Labs Labs: 09/02/18 06:35 09/02/18 06:35 PT 13.9 SECONDS (9.7-12.2) H 08/31/18 17:37 INR 1.3 08/31/18 17:37 APTT 42 SECONDS (21-34) H D 08/31/18 17:37 - Constitutional Appears: No Acute Distress - Eye Exam Eye Exam: EOMI, PERRL, Scleral icterus - Respiratory Exam Respiratory Exam: NORMAL BREATHING PATTERN - Cardiovascular Exam Cardiovascular Exam: REGULAR RHYTHM - GI/Abdominal Exam GI & Abdominal Exam: Soft, Tenderness, Normal Bowel Sounds. 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 In need of biliary stenting/decompression. Would expedite transfer to if possible for further management Status: Acute (2) Obstructive jaundice Assessment & Plan: as above Status: Acute (3) Renal failure (ARF), acute on chronic Assessment & Plan: on dialysis. Status: Acute
[2018-09-02 18:53] VITALS: BP 121/76
--- NOTE | 2018-09-02 20:29 | CP.PCM.PN ---
Subjective - Date & Time of Evaluation Date of Evaluation: 09/02/18 Time of Evaluation: 08:00 - Subjective Subjective: weak nad awaiting transfer Objective - Vital Signs/Intake and Output Vital Signs (last 24 hours): Temp Pulse Resp BP Pulse Ox 98.4 F 77 13 141/72 70 L 09/02/18 18:30 09/02/18 18:35 09/02/18 18:35 09/02/18 18:35 09/02/18 18:35 Intake and Output: 09/02/18 09/03/18 18:59 06:59 Intake Total 300 100 Output Total 200 1000 Balance 100 -900 - Medications Medications: Current Medications Famotidine (Pepcid) 20 mg PO DAILY ANASTASIA Last Admin: 09/02/18 09:12 Dose: 20 mg Meropenem 500 mg/ Sodium (Chloride) 100 mls @ 100 mls/hr IVPB Q12H ANASTASIA; Protocol Potassium Chloride (K-Dur 20 Meq Er Tab) 20 meq PO DAILY ANASTASIA Last Admin: 09/02/18 09:12 Dose: 20 meq - Labs Labs: 09/02/18 06:35 09/02/18 06:35 PT 13.9 SECONDS (9.7-12.2) H 08/31/18 17:37 INR 1.3 08/31/18 17:37 APTT 42 SECONDS (21-34) H D 08/31/18 17:37 - Constitutional Appears: Non-toxic - Head Exam Head Exam: NORMOCEPHALIC - Eye Exam Eye Exam: Scleral icterus - ENT Exam ENT Exam: Mucous Membranes Dry - Neck Exam Neck Exam: absent: Lymphadenopathy - Respiratory Exam Respiratory Exam: Decreased Breath Sounds - Cardiovascular Exam Cardiovascular Exam: REGULAR RHYTHM - GI/Abdominal Exam GI & Abdominal Exam: Distended, Soft - Rectal Exam Rectal Exam: Deferred Assessment and Plan (1) Acute renal failure Status: Acute (2) Bile duct stenosis Status: Acute (3) Elevated bilirubin Status: Acute (4) Hypokalemia Status: Acute (5) Icterus Status: Acute (6) Metabolic acidosis Status: Acute (7) Obstructive jaundice Status: Acute (8) Renal failure (ARF), acute on chronic Status: Acute
[2018-09-02 20:38] VITALS: RESP 18; TEMP 98.1; O2SAT 100
[2018-09-02 20:52] VITALS: PULSE 76
[2018-09-02] MEDS ORDERED: Meropenem 500 MG in Sodium Chloride 0.9% 100 ML IVPB SCH (22:00)
--- NOTE | 2018-09-03 03:52 | PN ---
DATE: 09/02/2018 LOCATION: [facility] remains in bed 11 in the ICU area, but has been downgraded to telemetry. SUBJECTIVE: Still awaiting transferring from the [facility] for ERCP with ultrasound guidance. Mentally appears more alert. Obviously, extremely in grave condition. Denies any shortness of breath. No chills. No diarrhea at this point in time. Denies any chest pain or palpitations. No eating at all, drinking very little amount of fluids, and IV fluids for support. PHYSICAL EXAMINATION: GENERAL: Alert. We spoke about different things and he answers in very short simple words. I asked him that he has to get better for 09/14/2018 and I asked him what is 09/14/2018, he looked at me, he smiled and he said election date, so that was wonderful to hear. VITAL SIGNS: Have remained relatively stable. Blood pressure anywhere from 118 systolic to 133, diastolic in the 70's and 90's. Continuous cardiac monitoring showing sinus rhythm, sometimes a little rate fast when I actually tried to move him to listen to be close. HEENT: The skin remains deeply icteric obviously. Oral cavity, tongue is very dry. NECK: Jugular veins not distended. CHEST: Totally clear to auscultation during my exam. CARDIOLOGIC: Heart rate normal in intensity and regular. ABDOMEN: Soft. No localized tenderness. CENTRAL NERVOUS SYSTEM: Obtunded, but moving all extremities. Mentation appears to be slightly better. He is very very tired obviously. LABORATORY DATA: Complementary data reveals slight decrease in the white blood cell count, but significantly still 23,800 to be precise. Hemoglobin is slightly lower than yesterday at 8.3 as expected, platelets remained normal. Electrolytes actually relatively normal. Potassium is 3.8. Carbon dioxide of 18, significantly improved from 12 the other day, and this is with some dialysis. Bilirubin remains in the 50's. ASSESSMENT: I spoke with the tallow maker again and we are just awaiting the word from the [facility]; once they get the bed, we will transfer him hopefully. This would happen anytime and that is what they told me yesterday by [place], he is the coordinator of his transportation and transfer transferring from hospital to hospital. PLAN: Now, as discussed with the tallow maker, the next big problem to come down the road will be septic shock, some sort of severe sepsis. His white count has been elevated, now gradually going up little by little and we are expecting any time to have some kind of gram-negative sepsis here because of the biliary obstruction. Now, the ticarcillin has been discontinued and he is on meropenem 500 mg IV every 12 hours. The situation is extremely grave here. The only possibility is that it is able to decompress the biliary tree and a stent put in place if at all and then wait for the biopsy report. Ryne Wagoner MD
== END 2018-09-02 21:42 | disposition short-term general hospital (02) | DRG 871 ==
LOC: C.ER 12:13 → C.9E 15:41 → C.9I 16:46 → C.3T 08-27 18:29 → C.5S 08-28 16:42 → C.9I 08-31 08:17
PROVIDERS: ADMIT Internal Medicine Cardiovascular Disease; ATTEND Internal Medicine Cardiovascular Disease
PROC: 02HV33Z Insertion of Infusion Device into Superior Vena Cava, Percutaneous Approach (ICD-10-PCS; 2018-08-30)
PROC: B548ZZA Ultrasonography of Superior Vena Cava, Guidance (ICD-10-PCS; 2018-08-30)
PROC: 5A1D70Z Performance of Urinary Filtration, Intermittent, Less than 6 Hours Per Day (ICD-10-PCS; principal; 2018-08-30 12:00)
PROC: 5A1D70Z Performance of Urinary Filtration, Intermittent, Less than 6 Hours Per Day (ICD-10-PCS; 2018-08-31)
PROC: 5A1D70Z Performance of Urinary Filtration, Intermittent, Less than 6 Hours Per Day (ICD-10-PCS; 2018-09-01)
PROC: 5A1D70Z Performance of Urinary Filtration, Intermittent, Less than 6 Hours Per Day (ICD-10-PCS; 2018-09-02)
DX: A41.9 Sepsis, unspecified organism (principal); K83.1 Obstruction of bile duct; N18.6 End stage renal disease; N17.9 Acute kidney failure, unspecified; I12.0 Hypertensive chronic kidney disease with stage 5 chronic kidney disease or end stage renal disease; E87.2 Acidosis; D68.9 Coagulation defect, unspecified; K83.09 Other cholangitis; K92.1 Melena; Z99.2 Dependence on renal dialysis; E87.6 Hypokalemia; H91.90 Unspecified hearing loss, unspecified ear; I48.91 Unspecified atrial fibrillation; E86.0 Dehydration; E86.1 Hypovolemia; Z85.828 Personal history of other malignant neoplasm of skin; Z87.891 Personal history of nicotine dependence; Z91.15 Patient's noncompliance with renal dialysis; D64.9 Anemia, unspecified